=== PATIENT | female | born 1940 | race Caucasian/White ===

== ENCOUNTER 2021-07-22 12:27 | Emergency (ER) | payer MEDICARE, MEDICAID, SELFPAY ==
[2021-07-22 12:30] VITALS: BP 125/61; PULSE 76; RESP 14; O2SAT 94
--- NOTE | 2021-07-22 12:38 | USCV_ITS ---
MelisaMami herrmann Age: 81 Gender: F : 1940 Exam Date: 07/22/2021 13:06 Ordering Phys: Faustina Can MD Technologist: Exam Location: [facility] [place] Indication: BILAT ULCERS RIGHT LEFT Brachial 135.00 mmHg Brachial 135.00 mmHg Pressure (mmHg) Waveform Pressure (mmHg) Waveform 100.00 DEBT MANAGEMENT COUNSELOR 80.00 100.00 DPA 80.00 0.74 Ankle/Brachial Index 0.59 FINDINGS Diminished resting ARELI of 0.74 on the right side and 0.59 on the left side CONCLUSIONS Abnormal resting ARELI suggesting mild peripheral arterial disease on the right side and moderate peripheral arterial disease in the left side Dr Abisai Cee MD [facility] (Electronically Signed) Final Date: 22 July 2021 18:13 S
--- NOTE | 2021-07-22 12:38 | XRR_ITS ---
PROCEDURE INFORMATION: Exam: XR Right Tibia and Fibula Exam date and time: 07/22/2021 12:38 PM Age: 81 years old Clinical indication: Pain; Lower leg; Right; Additional info: Eval for infection TECHNIQUE: Imaging protocol: XR Right tibia and fibula. Views: 2 views. COMPARISON: No relevant prior studies available. FINDINGS: Bones/joints: Normal. Soft tissues: Normal. XR/XR tibia fibula RT 2V [id number] IMPRESSION: No acute findings.
--- NOTE | 2021-07-22 12:38 | XRR_ITS ---
PROCEDURE INFORMATION: Exam: XR Left Tibia and Fibula Exam date and time: 07/22/2021 12:38 PM Age: 81 years old Clinical indication: Pain; Lower leg; Left; Additional info: Eval infection TECHNIQUE: Imaging protocol: XR Left tibia and fibula. Views: 2 views. COMPARISON: No relevant prior studies available. FINDINGS: Bones/joints: Normal. Soft tissues: Normal. XR/XR tibia fibula LT 2V [id number] IMPRESSION: No acute findings.
--- NOTE | 2021-07-22 13:16 | W.ED.EXTPRO ---
HPI - Extremity Problem General: Chief complaint: Extremity Problem,Nontraumatic Stated complaint: BILATERAL LOWER EXT PAIN Time Seen by Provider: 07/22/21 12:31 Course Vital Signs: Vital signs: Vital Signs Pulse Rate 76 07/22/21 12:30 Respiratory Rate 14 07/22/21 12:30 Blood Pressure 125/61 07/22/21 12:30 Pulse Oximetry 94 07/22/21 12:30 Discharge Plan Discharge Patient Disposition: Home Clinical Impression: Acute leg pain, Leg swelling, Chronic wound of extremity Condition: Stable Prescriptions: New cephalexin 500 mg capsule 500 mg PO BID 10 Days Qty: 20 0RF Referrals: [facility] [Other] Discharge Diet: Advance as tolerated Discharge Activity: Increase activity as tolerated Patient Instructions: Chronic Wounds (ED) Activity Restrictions/Additional Instructions: Our dependency case manager will have you follow-up with the wound care and a primary care provider in the next few days. You would be expected to have a phone call with our dependency case manager who will put you on the schedule. You can expect a call from us in the next 2-3 days. Please take your antibiotics as instructed. Watch out for signs of skin changes/redness, mouth redeness or swelling, nausea/vomiting, diarrhea, blood in the urine or any new or concering complaints. Coding Level of Care Code ED Applied Statistician for Martinez Tovar
--- NOTE | 2021-07-22 13:21 | ED_ITS ---
HPI - General Adult General: Chief complaint: Extremity Problem,Nontraumatic Stated complaint: BILATERAL LOWER EXT PAIN Time Seen by Provider: 07/22/21 12:31 History of Present Illness: Onset:[] Duration:[] Location:[] Severity:[] Associated symptoms: Deny chest pain, dyspnea, nausea, rash, palpitations or vomiting Review of Systems Const: Denies: fever(s) or chills Eyes: Denies: change in vision ENMT: Denies: mouth pain Card: Denies: chest pain or palpitations Resp: Denies: dyspnea or non-productive cough GI: Denies: abdominal pain, nausea, vomiting or diarrhea : Denies: dysuria Musc: Denies: extremity pain Skin/Breast: Denies: rash or new lesions Neuro: Denies: weakness in extremities Psych: Reports: other (Normal mood) Randal/Lymph: Denies: easy bruising Physical Exam Const: COMMON NORMALS: alert HENMT: COMMON NORMALS: atraumatic HEAD & SCALP: atraumatic MOUTH: moist mucous membranes not abnormal Eye: COMMON NORMALS: EOMs intact bilaterally and conjunctivae normal CONJUNCTIVA: Yes conjunctivae normal Neck/C-Spine: COMMON NORMALS: full ROM and supple Resp: COMMON NORMALS: normal respiratory effort and clear to auscultation bilaterally AUSCULTATION: clear to auscultation bilaterally Cardio: COMMON NORMALS: regular rate RATE: regular rate GI: COMMON NORMALS: Soft to palpation and non-tender PALPATION: Yes Soft to palpation Extremity: COMMON NORMALS: full ROM Neuro: SENSORIUM/ORIENTATION: Yes alert MOTOR EXAM: No Abnormal motor strength present and Other motor observations present (no focal motor deficits) Psych: COMMON NORMALS: speech normal SPEECH: Yes normal speech MOOD & AFFECT: Yes euthymic mood Course Vital Signs: Vital signs: Vital Signs Pulse Rate 76 07/22/21 12:30 Respiratory Rate 14 07/22/21 12:30 Blood Pressure 125/61 07/22/21 12:30 Pulse Oximetry 94 07/22/21 12:30 [facility] - General Adult Medical Decision Making I have given patient follow up with our counseling case manager to be seen by our outpatient PCP for peripheral vascular disease. Patient aware of a call from our counseling case manager to schedule for appointment(s) and verbalizes understanding of the importance of following up. Rx ASA 325mg for PAD, Discharge Plan Discharge Patient Disposition: Home Clinical Impression: Acute leg pain, Leg swelling, Chronic wound of extremity Condition: Stable Prescriptions: New cephalexin 500 mg capsule 500 mg PO BID 10 Days Qty: 20 0RF Referrals: [facility] [Other] Discharge Diet: Advance as tolerated Discharge Activity: Increase activity as tolerated Patient Instructions: Chronic Wounds (ED) Activity Restrictions/Additional Instructions: Our counseling case manager will have you follow-up with the wound care and a primary care provider in the next few days. You would be expected to have a phone call with our counseling case manager who will put you on the schedule. You can expect a call from us in the next 2-3 days. Please take your antibiotics as instructed. Watch out for signs of skin changes/redness, mouth redeness or swelling, nausea/vomiting, diarrhea, blood in the urine or any new or concering complaints. Coding Level of Care Code ED Electronics Commodity Manager for Martinez Tovar
--- NOTE | 2021-07-22 13:23 | W.ED.GENADLT ---
HPI - General Adult General: Chief complaint: Extremity Problem,Nontraumatic Stated complaint: BILATERAL LOWER EXT PAIN Time Seen by Provider: 07/22/21 12:31 History of Present Illness: Patient is an 81-year-old female presenting from [facility] with concerns of bilateral lower extremity swelling and pain. Patient states that she had had this problem for about 3 weeks and is currently gets wound care at the [facility]. Earlier today, [facility] staff noticed that the legs are weeping more patient was complaining of pain and swelling. EMS were alerted and patient was brought to the emergency room. On arrival, patient is AAO x3 fully conversant. Patient denies any fever/chills, excessive pain in the legs. Patient is currently not on any antibiotics. Patient has not been followed by the wound care clinic. Onset: chronic Duration:ongoing Location:[facility] Severity:moderate Associated symptoms: Reports rash (+bilateral lower extremity erythema and weeping); Deny chest pain, dyspnea, nausea, palpitations or vomiting Review of Systems Const: Denies: fever(s) or chills Eyes: Denies: change in vision ENMT: Denies: mouth pain Card: Denies: chest pain or palpitations Resp: Denies: dyspnea or non-productive cough GI: Denies: abdominal pain, nausea, vomiting or diarrhea : Denies: dysuria Musc: Denies: extremity pain Skin/Breast: Reports: rash (+bilateral lower extremity erythema and weeping) Neuro: Denies: weakness in extremities Psych: Reports: other (Normal mood) Randal/Lymph: Denies: easy bruising [facility] ED PFSH: Medical History (Updated 07/22/21 @ 13:33 by Faustina Can MD) Leg wound, left Leg wound, right Social History (Updated 07/22/21 @ 13:26 by Faustina Can MD) Smoking and tobacco status: never smoked Alcohol intake: never Substance/Drug Use: never Physical Exam Const: COMMON NORMALS: alert HENMT: COMMON NORMALS: atraumatic HEAD & SCALP: atraumatic MOUTH: moist mucous membranes not abnormal Eye: COMMON NORMALS: EOMs intact bilaterally and conjunctivae normal CONJUNCTIVA: Yes conjunctivae normal Neck/C-Spine: COMMON NORMALS: full ROM and supple Resp: COMMON NORMALS: normal respiratory effort and clear to auscultation bilaterally AUSCULTATION: clear to auscultation bilaterally Cardio: COMMON NORMALS: regular rate RATE: regular rate GI: COMMON NORMALS: Soft to palpation and non-tender PALPATION: Yes Soft to palpation Extremity: COMMON NORMALS: full ROM NARRATIVE EXTREMITY EXAM: +Cap refill 4 seconds in the lower extremities DP/PT b/l, sensation intact in the lower extremities, strength intact in lower extremities, skin erythema with weeping wounds in the lower extremities b/l, decubitus ulcers noted in both lower extremities +eschar noted on the posterior aspect of the l leg Neuro: SENSORIUM/ORIENTATION: Yes alert MOTOR EXAM: No Abnormal motor strength present and Other motor observations present (no focal motor deficits) Psych: COMMON NORMALS: speech normal SPEECH: Yes normal speech MOOD & AFFECT: Yes euthymic mood Course Vital Signs: Vital signs: Vital Signs Temperature 98.6 F 07/22/21 13:50 Pulse Rate 72 07/22/21 13:50 Respiratory Rate 15 07/22/21 13:50 Blood Pressure 129/60 07/22/21 13:50 Pulse Oximetry 94 07/22/21 13:50 MDM - General Adult Medical Decision Making 81-year-old female with a history of chronic leg swelling and wound presenting to the emergency room with worsening pain x1 day. On exam, patient has nontense compartments in the lower legs bilaterally, cap refill of 4s DP/PT. Sensation and strength intact in the legs bilaterally. XR not show any signs of osteomyelitis in the lower extremities US showed monophasic DP/PT pulses on US. I discussed this finding with patient instructed patient that she will need to be started on aspirin 325 mg daily. Patient is agreeable to follow up with our wound care clinic and see a primary care provider. I have given patient follow up with our protective services case worker to be seen by our outpatient wound care followup. Patient aware of a call from our protective services case worker to schedule for appointment(s) and verbalizes understanding of the importance of following up. I have given patient follow up with our protective services case worker to be seen by primary care provider for periphreal artery disease and wound followup. Patient aware of a call from our protective services case worker to schedule for appointment(s) and verbalizes understanding of the importance of following up. I have given patient follow up with our protective services case worker to be seen by Dr. Gonsalves for eschar L leg. Patient aware of a call from our protective services case worker to schedule for appointment(s) and verbalizes understanding of the importance of following up. Rx ASA 325mg for PAD, cephalexin 500mg BID for chronic wounds Disposition: Discharge. Patient counseled regarding diagnostic impression, treatment plan. Patient given ED strict return precautions to return for continuation, worsening, or development of new symptoms. Instructed to f/u w/ PCP and our wound care regarding symptoms today. Patient verbalized understanding. Lab Data Radiology Impressions Tibia/Fibula X-Ray 07/22/21 12:38 IMPRESSION: No acute findings. Imaging Data Other Imaging: Radiologist's impression: [address] [address] XRay Report Signed Patient: Mami Vincent Unit #: [id number] : 1940 Age/Sex: 81 / F ADM Date: 07/22/21 Loc: ER Room/Bed: Attending Dr: Ordering Provider/Ordering MD: Faustina Can MD Date of Service: 07/22/21 Procedure(s): XR tibia fibula RT 2V 44744 Accession Number(s): [id number] Report Number: [id number] PROCEDURE INFORMATION: Exam: XR Right Tibia and Fibula Exam date and time: 07/22/2021 12:38 PM Age: 81 years old Clinical indication: Pain; Lower leg; Right; Additional info: Eval for infection TECHNIQUE: Imaging protocol: XR Right tibia and fibula. Views: 2 views. COMPARISON: No relevant prior studies available. FINDINGS: Bones/joints: Normal. Soft tissues: Normal. XR/XR tibia fibula RT 2V 33161 IMPRESSION: No acute findings. ? Dictated By: Christopher Medina Signed By: Christopher Medina Signed Date/Time: 07/22/21 1356 DD/ [address] [address] XRay Report Signed Patient: Mami Vincent Unit #: [id number] : 1940 Age/Sex: 81 / F ADM Date: 07/22/21 Loc: ER Room/Bed: Attending Dr: Ordering Provider/Ordering MD: Faustina Can MD Date of Service: 07/22/21 Procedure(s): XR tibia fibula LT 2V 79440 Accession Number(s): [id number] Report Number: [id number] PROCEDURE INFORMATION: Exam: XR Left Tibia and Fibula Exam date and time: 07/22/2021 12:38 PM Age: 81 years old Clinical indication: Pain; Lower leg; Left; Additional info: Eval infection TECHNIQUE: Imaging protocol: XR Left tibia and fibula. Views: 2 views. COMPARISON: No relevant prior studies available. FINDINGS: Bones/joints: Normal. Soft tissues: Normal. XR/XR tibia fibula LT 2V 67140 IMPRESSION: No acute findings. ? Dictated By: Christopher Medina Signed By: Christopher Medina Signed Date/Time: 07/22/21 1358 DD/ 1238 Discharge Plan Discharge Patient Disposition: Home Clinical Impression: Acute leg pain, Leg swelling, Chronic wound of extremity, Cellulitis, Peripheral arterial disease Condition: Stable Prescriptions: New cephalexin 500 mg capsule 500 mg PO BID 10 Days Qty: 20 0RF aspirin 325 mg tablet 325 mg PO DAILY 14 Days Qty: 14 0RF Discharge Orders: Discharge ED (Routine); Ordered 07/22/21 Ordered By: Faustina Can Referrals: [facility] [Other] Discharge Diet: Advance as tolerated Discharge Activity: Increase activity as tolerated Activity Restrictions/Additional Instructions: Our protective services case worker will have you follow-up with the wound care and a primary care provider in the next few days. You would be expected to have a phone call with our protective services case worker who will put you on the schedule. You can expect a call from us in the next 2-3 days. Please take your antibiotics as instructed. Watch out for signs of skin changes/redness, mouth redeness or swelling, nausea/vomiting, diarrhea, blood in the urine or any new or concerning complaints. Coding Level of Care Code ED Dining Server for Chg Fwd Exam Comprehensive
[2021-07-22 13:50] VITALS: BP 129/60; PULSE 72; RESP 15; TEMP 37; O2SAT 94
--- NOTE | 2021-07-24 11:13 | DCPLANNER ---
Addendum entered by Taylor Almanza 08/16/21 13:58: Patient had a follow up appointment scheduled with Wound Care - patient did attend appointment. Addendum entered by Taylor Almanza 07/26/21 13:57: risk control manager had message to speak with patient about getting a follow up appointment for patient with primary care. risk control manager unable to speak with patient at this time. Addendum entered by Taylor Almanza 07/26/21 11:15: risk control manager had message to schedule a follow up appointment for patient with ortho. risk control manager made the referral but was told that patient would need to followup with Wound Care before being seen at ortho. Addendum entered by Taylor Almanza 07/24/21 11:20: risk control manager was able to speak with daughter in law and give her the appointment information. Original Note: risk control manager had message to schedule a follow up appointment for patient with wound care. risk control manager called the Wound Care clinic, spoke with Marti, gave clinic patients information. A follow up appointment was scheduled for patient for July at 1:[address] Mar. risk control manager called phone number [phone], this was disconnected, called phone number [phone], no answer, called [phone] spoke with patient, she asked pillowcase cutter to call daughter in law - [phone], a voicemail was left for her to call pillowcase cutter back for appointment information.
== END 2021-07-22 15:55 | disposition home or self-care (01) ==
PROVIDERS: Emergency Provider Emergency Medicine
DX: L03.116 Cellulitis of left lower limb (principal); L03.115 Cellulitis of right lower limb; L89.899 Pressure ulcer of other site, unspecified stage; I73.9 Peripheral vascular disease, unspecified
CPT/HCPCS: 73590; 93922; 99283

== ENCOUNTER 2021-08-01 16:32 | Inpatient (IN) | payer MEDICARE, MEDICAID, SELFPAY ==
[2021-08-01 16:39] VITALS: BP 156/69; PULSE 73; RESP 19; TEMP 37.4; O2SAT 91; BMI 20.3
--- NOTE | 2021-08-01 16:58 | USCV_ITS ---
Mami Vincent Age: 81 Gender: F : 1940 Exam Date: 08/01/2021 17:14 Ordering Phys: Eris Thompson DO Technologist: Laurel Hickman [place] [facility] [place]: ULCERS ON LT LOWER LEG Risk Factors: UNKNOWN Previous Vascular Surgery: UNKNOWN RIGHT LEFT BP: 138.0 / 64.00 BP: 153.0/ 88.00 0 0 Waveform Velocity (cm/s) Velocity (cm/s) Waveform Iliac Prox 149.1 Monophasic Iliac Mid 97.6 Monophasic Iliac Distal 82.5 Monophasic MEDICAL RECORD ASSISTANT 19.9 Monophasic SFA Dist 98.8 Monophasic POP 147.4 Biphasic FINDINGS NO FLOW IN LT BSW OR DPA.. NO ARELI POSSIBLE. Sluggish flow in the common femoral artery on the left side. No flow was detected in the proximal and mid superficial femoral artery. Monophasic and continuous Doppler waveforms in the distal superficial femoral and popliteal artery. No Doppler flow signals in the posterior tibial and dorsalis pedis arteries. CONCLUSIONS 1. 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 2. No flow was detected in the posterior tibial and dorsalis pedis artery on the left side Dr. Martinez was informed about this finding Dr Abisai Cee MD [facility] (Electronically Signed) Final Date: 03 August 2021 16:51 S
--- NOTE | 2021-08-01 16:58 | ECG_ITS ---
[facility] Test Date: 2021-08-01 Pat Name: Mami Vincent Department: Room: Gender: Female Hog Ribber: : 1940 Requested By: Eris Goldman Order Number: [id number] Marlo MD: Charanjit Carcamo M.D. Measurements Intervals [place] Rate: 68 P: -41 WV: 130 QRS: -8 QRSD: 85 T: -13 QT: 411 QTc: 438 Interpretive Statements SINUS RHYTHM SEPTAL MYOCARDIAL INFARCTION , OF INDETERMINATE AGE [40+ ms Q WAVE IN V1/V2] No previous ECG available for comparison Electronically Signed On 08-01-2021 20:21:53 TRAFFIC COUNTER by Charanjit Carcamo M.D. [email or web address]
[2021-08-01 17:13] LABS: Basophils % 0.2 %; Eosinophils # 0.1 10^3/uL (0.0-0.8); Eosinophils % 0.3 %; Hematocrit 39.7 % (37.0-47.0); Hemoglobin 12.7 g/dL (11.5-15.3); Lymphocytes # 1.3 10^3/uL (0.8-4.8); Lymphocytes % 8.1 %; Mean Corpuscular Hemoglobin 30.3 pg (28.0-34.0); Mean Corpuscular Volume 94.7 fl (81-99); Mean Platelet Volume 10.5 fL (7.4-10.4); Monocytes % 6.1 %; Neutrophils # 13.82 10^3/uL (1.8-7.7); Neutrophils % 84.7 %; Nucleated Red Blood Cells % 0 %; Platelet Count 347 10^3/cmm (130-400); Red Blood Count 4.19 10^6/uL (4.1-5.3); Red Cell Distribution Width 12.1 % (12.1-15.1); White Blood Count 16.3 10^3/uL (4.0-10.0)
--- NOTE | 2021-08-01 17:35 | W.ED.EXTPRO ---
HPI - Extremity Problem General: Chief complaint: Extremity Problem,Nontraumatic Stated complaint: FOOT PAIN Time Seen by Provider: 08/01/21 16:34 Source: patient Mode of arrival: EMS Limitations: altered mental status History of Present Illness: 81-year-old female presents emergency room with complaints of poor blood flow to her left leg. She has chronic ulcers that they have been draining through the wound clinic she has discoloration of the toes and foul-smelling ulcer along the back of the calf on the left leg. She has a low-grade fever on arrival here. She is in the dementia unit at the skilled nursing per EMS staff. MD Complaint: other (Discoloration left toes and ulcers left leg) Onset (ago): month(s) Location: left, right and lower extremity Relieving factors: nothing Associated symptoms: Reports fever(s); Deny arthralgias, chest pain, myalgias, rash or short of breath Review of Systems General: Reports: Other (Difficult to obtain with patient's dementia) Const: Reports: fever(s) ENMT: Denies: throat pain, nasal discharge or nasal congestion Card: Denies: chest pain Resp: Denies: dyspnea GI: Denies: abdominal pain, nausea, vomiting or diarrhea : Denies: flank pain, dysuria, urinary frequency or urinary urgency Skin/Breast: Denies: rash PFSH ED PFSH: Medical History CKD (chronic kidney disease) stage 3, GFR 30-59 ml/min Dementia DNR (do not resuscitate) HTN (hypertension) Leg wound, left Leg wound, right Peripheral vascular disease Social History Smoking and tobacco status: never smoked Alcohol intake: never Household members: other Housing: Correction Marital status: / Physical Exam Const: COMMON NORMALS: no acute distress GENERAL APPEARANCE: cooperative and comfortable HENMT: COMMON NORMALS: normocephalic and atraumatic HEAD & SCALP: normocephalic and atraumatic Neck/C-Spine: COMMON NORMALS: no JVD Resp: COMMON NORMALS: normal respiratory effort, No retractions, No use of accessory muscles and clear to auscultation bilaterally AUSCULTATION: clear to auscultation bilaterally Cardio: COMMON NORMALS: no JVD, regular rate, regular rhythm and No murmurs present (Cardio) RATE: regular rate RHYTHM: regular rhythm GI: COMMON NORMALS: Soft to palpation and No hepatosplenomegaly present AUSCULTATION: Yes normoactive bowel sounds PALPATION: Yes Soft to palpation, No Tenderness to palpation present (GI), No Guarding due to palpation present (GI) and Yes No hepatosplenomegaly present Extremity: OTHER: Cyanosis second third and fourth toes on the left foot. Extensive foul-smelling ulcers across the back of the left calf. Appears to be full-thickness to the skin there is an overlying dry eschar. Ulcers on the right heel as well are far less involved. No palpable pulses lower extremities. Course Vital Signs: Vital signs: Vital Signs Temperature 97.7 F 08/02/21 04:00 Pulse Rate 62 08/02/21 04:00 Respiratory Rate 16 08/02/21 04:00 Blood Pressure 132/50 08/02/21 04:00 Pulse Oximetry 90 08/02/21 04:00 MDM - Extremity (Nontraumatic) Medical Decision Making ARELI done 1 week ago showed moderate decrease in flow arterial duplex done today of the left lower extremity shows significant decrease COVID flow. We will start her on heparin for now blood cultures have been obtained and will initiate antibiotics. Discussed with Dr. Sawant from vascular surgery and Dr. Carcamo for consults per Dr. Powell's request. Initially she will require medical management. Given her overall condition the poor blood flow she has she may require some intervention moving her leg Dr. Sawant and Carlos Alberto will see according to Dr. Powell. When I was seeing patient there is no family available at the bedside to discuss Dr. Powell is attempting to contact them patient is listed according to the skilled nursing notes as a Do Not Recussitate. Medical Records I reviewed the patient's medical records. Lab Data I reviewed the patient's lab results. : 08/02/21 01:00 08/02/21 01:00 Radiology Impressions Chest X-Ray 08/01/21 17:40 IMPRESSION: 1. Left base atelectasis with possible small pleural effusion. Venous Duplex 08/01/21 18:42 IMPRESSION: 1. Suspect probable occluding thrombus in the left posterior tibial vein, see above discussion. 2. Possible chronic thrombus in the mid right superficial femoral vein, details above. 3. No other evidence for the deep venous thrombosis in either lower extremity at this time. 4. Limitations as discussed above. Laboratory Results WBC 16.3 10^3/uL (4.0-10.0) H 08/01/21 17:00 RBC 4.19 10^6/uL (4.1-5.3) 08/01/21 17:00 Hgb 12.7 g/dL (11.5-15.3) 08/01/21 17:00 Hct 39.7 % (37.0-47.0) 08/01/21 17:00 MCV 94.7 fl (81-99) 08/01/21 17:00 MCH 30.3 pg (28.0-34.0) 08/01/21 17:00 MCHC 32.0 g/dL (30.0-36.0) 08/01/21 17:00 RDW 12.1 % (12.1-15.1) 08/01/21 17:00 Plt Count 347 10^3/cmm (130-400) 08/01/21 17:00 MPV 10.5 fL (7.4-10.4) H 08/01/21 17:00 Neut % (Auto) 84.7 % 08/01/21 17:00 Lymph % (Auto) 8.1 % 08/01/21 17:00 [place] % (Auto) 6.1 % 08/01/21 17:00 Eos % (Auto) 0.3 % 08/01/21 17:00 Baso % (Auto) 0.2 % 08/01/21 17:00 Neut # (Auto) 13.82 10^3/uL (1.8-7.7) H 08/01/21 17:00 Lymph # (Auto) 1.3 10^3/uL (0.8-4.8) 08/01/21 17:00 [place] # (Auto) 1.0 10^3/uL (0.2-0.9) H 08/01/21 17:00 Eos # (Auto) 0.1 10^3/uL (0.0-0.8) 08/01/21 17:00 Baso # (Auto) 0.0 10^3/uL (0.0-0.1) 08/01/21 17:00 Nucleated RBC % (auto) 0 % 08/01/21 17:00 Nucleated RBCs # 0.0 /100WBC 08/01/21 17:00 PT 14.20 SECONDS (12.1-14.9) 08/01/21 17:00 INR 1.07 (0.8-1.2) 08/01/21 17:00 APTT 32.2 SECONDS (23.9-36.7) 08/01/21 17:00 Sodium 141 mmol/L (136-145) 08/01/21 17:00 Potassium 4.3 mmol/L (3.5-5.1) 08/01/21 17:00 Chloride 100 mmol/L (98-107) 08/01/21 17:00 Carbon Dioxide 27 mmol/L (22-29) 08/01/21 17:00 Anion Gap 18.3 (5-19) 08/01/21 17:00 BUN 46 mg/dL (8-23) H 08/01/21 17:00 Creatinine 1.6 mg/dL (0.5-0.9) H 08/01/21 17:00 GFR Calculation Not Reportable 08/01/21 17:00 Glucose 92 mg/dL (65-115) 08/01/21 17:00 Calculated Osmolality 304 mOsm/kg (285-295) H 08/01/21 17:00 Calcium 9.1 mg/dL (8.5-10.5) 08/01/21 17:00 Iron 25 ug/dL (37-145) L 08/01/21 17:00 TIBC 177 mcg/dl 08/01/21 17:00 % Saturation 14.1 % (20-50) L 08/01/21 17:00 Unsat Iron Binding 152 ug/dL (112-347) 08/01/21 17:00 Total Bilirubin 0.4 mg/dL (0.15-1.2) 08/01/21 17:00 AST 112 U/L (0-32) H 08/01/21 17:00 ALT 118 U/L (0-33) H 08/01/21 17:00 Alkaline Phosphatase 135 IU/L (35-105) H 08/01/21 17:00 C-Reactive Protein 128.1 mg/L (0.0-4.9) H 08/01/21 17:00 Total Protein 7.0 g/dL (6.6-8.7) 08/01/21 17:00 Albumin 2.9 g/dL (3.5-5.2) L 08/01/21 17:00 Globulin 4.1 g/dL (1.3-4.6) 08/01/21 17:00 Procalcitonin 0.35 ng/mL (0-0.5) 08/01/21 17:00 TSH 4.79 uIU/mL (0.27-4.20) H 08/01/21 17:00 Discharge Plan Discharge Patient Disposition: Admitted As Inpatient Admit Provider: Arnold Powell Clinical Impression: Limb ischemia, Arterial insufficiency with ischemic ulcer, Dementia, Peripheral vascular disease, LEON (acute kidney injury), CKD (chronic kidney disease) stage 3, GFR 30-59 ml/min, HTN (hypertension), DNR (do not resuscitate) Condition: Stable Coding Level of Care Code ED Shirt Sorter for [facility] T[facility]
--- NOTE | 2021-08-01 17:40 | XRR_ITS ---
PROCEDURE INFORMATION: Exam: XR Chest Exam date and time: 08/01/2021 5:40 PM Age: 81 years old Clinical indication: Cough and shortness of breath; Additional info: Dyspnea/cough TECHNIQUE: Imaging protocol: XR of the chest. Views: 1 view. COMPARISON: No relevant prior studies available. FINDINGS: Lungs: Mild atelectasis in the left lung base with a calcified granuloma. The right lung is clear. Pleural spaces: Blunting of the left costophrenic angle could represent a small pleural effusion or pleural scarring. No pneumothorax. Heart/Mediastinum: Unremarkable. No cardiomegaly. Diaphragm: Mild elevation of the left diaphragm. Bones/joints: Unremarkable. XR/XR chest 1V portable [id number] IMPRESSION: 1. Left base atelectasis with possible small pleural effusion.
[2021-08-01] MEDS: vancomycin 1,000 MG in sodium chloride 0.9% 250 ML 250 MG IV (17:48)
[2021-08-01 17:55] LABS: Alanine Aminotransferase 118 U/L (0-33); Albumin Level 2.9 g/dL (3.5-5.2); Alkaline Phosphatase 135 IU/L (35-105); Anion Gap 18.3 (5-19); Aspartate Amino Transferase 112 U/L (0-32); Blood Urea Nitrogen 46 mg/dL (8-23); Calcium 9.1 mg/dL (8.5-10.5); Carbon Dioxide 27 mmol/L (22-29); Chloride 100 mmol/L (98-107); Globulin 4.1 g/dL (1.3-4.6); Glucose 92 mg/dL (65-115); Osmolality Calculated 304 mOsm/kg (285-295); Potassium 4.3 mmol/L (3.5-5.1); Sodium 141 mmol/L (136-145); Total Bilirubin 0.4 mg/dL (0.15-1.2)
[2021-08-01 17:58] LABS: Creatinine Clr Calc Pharmacy 25.9111
--- NOTE | 2021-08-01 18:42 | USR_ITS ---
PROCEDURE INFORMATION: Exam: US Duplex Lower Extremity Veins, Bilateral Exam date and time: 08/01/2021 6:42 PM Age: 81 years old Clinical indication: Bilateral; Patient HX: Patient admitted with complaints of foot pain. Both legs show significant ulceration and lt toes have turned black. ; Additional info: R/O dvt TECHNIQUE: Imaging protocol: Real-time Duplex ultrasound of the bilateral extremities with 2-D arceo scale, color Doppler flow and spectral waveform analysis with image documentation. Complete exam focused on the bilateral lower extremity veins. COMPARISON: No relevant prior studies available. FINDINGS: Evaluated veins include bilateral common femoral, proximal profunda femoral, proximal/mid/distal superficial femoral, popliteal, posterior tibial, peroneal, and proximal greater saphenous veins. Technologist notes a technically difficult/limited study due to patient's inability to cooperate at this time. Right leg: The midportion of the right superficial femoral vein is relatively small in size, and it may not be completely compressible. Blood flow is still demonstrated through this region. I suspect there may be eccentrically located non occluding thrombus present, difficult to be certain. The appearance may be more compatible with chronic than acute thrombus, although the appearance is not specific and clinical correlation is still recommended. No visible clot in the other included veins. The other included veins appear normally compressible. Duplex Doppler evaluation demonstrates flow in the other evaluated veins. Left leg: Suspect probable occluding thrombus in the left posterior tibial vein. No definite/significant blood flow can be detected in the posterior tibial vein, and the vein is probably not completely compressible. Difficult to determine if this is acute or chronic thrombus, please correlate clinically. No visible clot in the other included veins. The other included veins appear normally compressible. Duplex Doppler evaluation demonstrates flow in the other evaluated veins. US/[place] [id number] IMPRESSION: 1. Suspect probable occluding thrombus in the left posterior tibial vein, see above discussion. 2. Possible chronic thrombus in the mid right superficial femoral vein, details above. 3. No other evidence for the deep venous thrombosis in either lower extremity at this time. 4. Limitations as discussed above.
--- NOTE | 2021-08-01 18:42 | USCV_ITS ---
Mami Vincent Age: 81 Gender: F : 1940 Exam Date: 08/02/2021 00:15 Ordering Phys: Arnold Powell MD Technologist: Gavin Brown Exam Location: [facility] [place] Indication: PVD/EF Assessment BP: / HR: 73 Rhythm: Sinus Technical Quality: Adequate MEASUREMENTS (Male / Female) Normal Values 2D ECHO LV Diastolic Diameter PLAX 2.7 cm 4.2 - 5.9 / 3.9 - 5.3 cm LV Systolic Diameter PLAX 0.3 cm IVS Diastolic Thickness 1.1 cm 0.6 - 1.0 / 0.6 - 0.9 cm IVS Systolic Thickness 1.4 cm LVPW Diastolic Thickness 1.4 cm 0.6 - 1.0 / 0.6 - 0.9 cm LVPW Systolic Thickness 2.0 cm LVOT Diameter 1.3 cm LV Ejection Fraction 2D Teich 99.6 % LV Ejection Fraction MOD 2C 83.1 % LV Ejection Fraction 2C AL 83.0 % LA Diameter 2.8 cm LA Width 4.4 cm LA Height 4.5 cm RA Width 3.7 cm RA Height 4.0 cm Aorta at Sinotubular Diameter 1.6 cm M-MODE Aortic Annulus Diameter 3.6 cm LA Ao Ratio MM 1.0 MV E Point Septal Separation 1.8 cm DOPPLER AV Peak Velocity 177.8 cm/s LVOT Peak Velocity 124.0 cm/s AV Area Cont Eq vti 0.9 cm squared AV Area Cont Eq pk 1.0 cm squared MV Peak Velocity 109.0 cm/s MV Area PHT 2.9 cm squared Mitral E to A Ratio 0.8 MV E' Velocity 48.5 cm/s Mitral E to MV E' Ratio 8.6 Mitral E to LV E' Lateral Ratio 8.9 Mitral E to LV E' Septal Ratio 8.3 TR Peak Velocity 298.6 cm/s TR Peak Gradient 35.7 mmHg TR Mean Velocity 208.6 cm/s TR Mean Gradient 20.3 mmHg TR Velocity Time Integral 88.6 cm TV Peak E Velocity 69.0 cm/s Right Atrial Pressure 3.0 mmHg Pulmonary Artery Systolic Pressu 38.7 mmHg PV Peak Velocity 130.3 cm/s RV Acceleration Time 0.1 s RV Ejection Time 0.3 s RV AcT/ET 0.3 FINDINGS Left Ventricle Normal left ventricular size and systolic function, EF 83 %. Mild left ventricular hypertrophy. Grade I/IV diastolic dysfunction (abnormal relaxation filling pattern), normal to mildly elevated filling pressures. Right Ventricle The right ventricle is normal in size and function. Right Atrium The right atrium is normal in size. Left Atrium Mildly increased left atrial size. Mitral Valve No gross abnormalities noted Aortic Valve Trace aortic valve regurgitation. Tricuspid Valve Trace to mild tricuspid valve regurgitation. Pulmonic Valve Pulmonic valve not well visualized. Pericardium Normal pericardium without effusion. Aorta Normal ascending aorta dimension. CONCLUSIONS Normal left ventricular size and systolic function, EF 83 %. Mild left ventricular hypertrophy. Grade I/IV diastolic dysfunction (abnormal relaxation filling pattern), normal to mildly elevated filling pressures. Mildly increased left atrial size. Trace aortic valve regurgitation. Trace to mild tricuspid valve regurgitation. Estimated pulmonary artery peak systolic pressure of 39 mmHg There is no pericardial effusion. There are no intracardiac masses. No previous study is available for comparison. Dr Abisai Cee MD FACC (Electronically Signed) Final Date: 02 August 2021 07:46 S
[2021-08-01 18:47] LABS: INR 1.07 (0.8-1.2)
[2021-08-01 18:48] LABS: Partial Thromboplastin Time 32.2 SECONDS (23.9-36.7)
--- NOTE | 2021-08-01 18:50 | PM.HP ---
Providers/Chief Complaint Chief Complaint: FOOT PAIN History of Present Illness Most of the history taken through chart review and conversation with ERP. Mami Vincent is a 81 year old female who is a intermediate resident secondary to advanced dementia with past medical history of hypertension, peripheral arterial disease, Alzheimer's who presented to the ER today via EMS from intermediate because of continuous foul-smelling discharge from chronic ulcers in her leg along with discoloration of her toes in the left leg. As per chart review patient was in the ER in last week of June with concerns of bilateral lower extremity swelling and pain as well. At that time patient has been having the complaint for the last 3 weeks. Patient is unable to provide me with any further history other than the above. She denies of having any diarrhea, cough, difficulty in breathing, dizziness, dysuria. Seems forgetful. In the ER patient was found to be mildly febrile with fever up to 99.3 Fahrenheit. Blood work showed a white count of 16.3, hemoglobin of 12.7, sodium of 146, creatinine of 1.6, AST/ALT of 112/118, alkaline phosphatase of 135. Patient underwent arterial duplex which was verbally reported as severe arterial disease(formal report not present in the chart). Patient did have an ankle-brachial index done on 07/22 which showed abnormal ARELI suggesting mild peripheral arterial disease on the right side and moderate peripheral artery disease on the left side. Review of Systems General: Reports: ROS unobtainable due to mental status Const: Denies: fever(s), chills, body aches, change in appetite, change in weight, malaise, night sweats, diaphoresis, change in sleep pattern, daytime sleepiness or snoring Eyes: Denies: change in vision, blurry vision, photophobia, eye discomfort or eye discharge ENMT: Denies: throat pain, enlarged tonsils, hoarseness, mouth pain, oral sores, dry mouth, tinnitus, nasal congestion or post nasal drip Card: Denies: chest pain, palpitations, irregular heart rhythm, edema, swelling of feet/ankles, lightheadedness, syncope, pre-syncope, dyspnea on exertion, orthopnea, leg pain with exertion or acrocyanosis Resp: Denies: dyspnea, productive cough, non-productive cough, wheezing, stridor, pain on inspiration, change in phlegm color, hemoptysis or chest congestion GI: Denies: abdominal pain, nausea, vomiting, hematemesis, coffee ground emesis, dysphagia, heartburn, diarrhea, constipation, bloating, GI cramping, change in bowel habits, pain on defecation, hematochezia or melena : Denies: flank pain, dysuria, urinary frequency, urinary urgency, urinary hesitancy, nocturia or hematuria Musc: Denies: neck pain, back pain, extremity pain, joint pain, joint swelling, joint redness, joint stiffness or limited range of motion Neuro: Denies: headache(s), numbness in extremities, weakness in extremities, sensory changes, lack of coordination, difficulty walking, frequent falls, dizziness, vertigo, confusion, Slurred speech present, difficulty communicating thoughts or seizure-like activity Psych: Denies: anxiety, depression, mood swings, panic attacks, hopelessness or irritability Endo: Denies: polyuria, polydipsia, tired all the time, cold intolerance, excessive sweating, flushing or heat intolerance Randal/Lymph: Denies: easy bruising or easy bleeding All/Imm: Denies: tongue swelling, facial swelling or acute wheezing Medications/Allergies Home Medications Medication Instructions Recorded Confirmed Last Taken Type Saccharomyces boulardii 250 mg 250 mg PO DAILY 08/01/21 08/01/21 Unknown History capsule acetaminophen 325 mg tablet 325 mg PO Q4H PRN 08/01/21 08/01/21 Unknown History (Tylenol) acetaminophen 650 mg rectal 650 mg NE Q6H PRN 08/01/21 08/01/21 Unknown History suppository alprazolam 0.25 mg tablet 0.25 mg PO DAILY 08/01/21 08/01/21 Unknown History amlodipine 5 mg tablet 5 mg PO DAILY 08/01/21 08/01/21 Unknown History aspirin 325 mg tablet 325 mg PO DAILY 08/01/21 08/01/21 Unknown History atorvastatin 10 mg tablet 10 mg PO DAILY 08/01/21 08/01/21 Unknown History cephalexin 500 mg capsule 500 mg PO Q12H 08/01/21 08/01/21 Unknown History diclofenac sodium 1 % topical gel 2 g TOPICAL TID PRN 08/01/21 08/01/21 Unknown History fentanyl 12 mcg/hr transdermal 1 patch TRANSDERMAL Q72H 08/01/21 08/01/21 Unknown History patch furosemide 20 mg tablet (Lasix) 20 mg PO DAILY 08/01/21 08/01/21 Unknown History lanolin alcohols-mineral 1 applic TOPICAL DAILY PRN 08/01/21 08/01/21 Unknown History oil-w.petrolatum-ceresin topical cream (Eucerin) lisinopril 10 mg tablet 10 mg PO DAILY 08/01/21 08/01/21 Unknown History olanzapine 2.5 mg tablet 2.5 mg PO DAILY 08/01/21 08/01/21 Unknown History potassium chloride 20 mEq 20 meq PO DAILY 08/01/21 08/01/21 Unknown History tablet,extended release sertraline 100 mg tablet 100 mg PO DAILY 08/01/21 08/01/21 Unknown History sodium chloride 0.65 % nasal spray 1 spray INTRANASAL Q6H PRN 08/01/21 08/01/21 Unknown History aerosol ([place] Nasal) tramadol 50 mg tablet 50 mg PO Q4H PRN 08/01/21 08/01/21 Unknown History Allergies Allergy/AdvReac Type Severity Reaction Status Date / Time influenza virus vaccine ts Allergy ALGY-Anaphy Verified 08/01/21 16:39 [id number] (36 mos,up) laxis [From Flulaval] PFSH Acute PFSH: Medical History CKD (chronic kidney disease) stage 3, GFR 30-59 ml/min Dementia DNR (do not resuscitate) HTN (hypertension) Leg wound, left Leg wound, right Peripheral vascular disease Social History Smoking and tobacco status: never smoked Alcohol intake: never Household members: other Housing: Correction Marital status: / Vitals/I&O/Wt Last Vital Signs Temp 99.4 F 08/01/21 16:39 Pulse 73 08/01/21 16:39 Resp 19 H 08/01/21 16:39 BP 156/69 08/01/21 16:39 Pulse Ox 91 08/01/21 16:39 Weight last 48 hrs Weight 58.967 kg Physical Exam Narrative: General: No acute distress, AO x 2-3, forgetful, chronically sick appearing, dehydrated, bilateral temporal wasting HEENT: PERRLA, pupils bilaterally equal and reactive Chest: Normal vesicular breath sounds, no added sounds, equal good air entry bilaterally CVS: S1-S2 regular, no murmurs, no tachycardia, no gallops, no rubs Abdomen: Soft, nontender, no organomegaly, bowel sounds present Neuro: No focal deficits, no facial deformity, AO x3, power 5/5 in all limbs Extremity: NARRATIVE EXTREMITY EXAM: Ulcerative changes in the lateral aspect of the left leg and mid leg distally. Wet gangrenous changes present in posterior aspect of the leg with copious purulent discharge. Early dry gangrenous changes present in toes of left foot, cyanotic. Thigh and knee appear normal. Decreased pulses on the right side as well. Data : 08/02/21 01:00 08/02/21 01:00 Micro: Microbiology 08/01/21 16:55 Blood Culture - Preliminary Blood SPECIMEN COLLECTED 08/01/21 17:00 Blood Culture - Preliminary Blood SPECIMEN COLLECTED A&P Assessment and plan (1) Arterial insufficiency with ischemic ulcer: Status: Acute (2) Limb ischemia: Status: Acute (3) Peripheral vascular disease: Status: Acute (4) LEON (acute kidney injury): Status: Acute (5) CKD (chronic kidney disease) stage 3, GFR 30-59 ml/min: Status: Acute (6) Dementia: Status: Acute (7) HTN (hypertension): Status: Acute Plan Ulcer secondary to arterial insufficiency in setting of limb ischemia: Appreciate lower limb arterial duplex. Case discussed with cardiology and cardiothoracic surgery. Continue heparin drip for now. Depending on the goals of care with the DPOA will discuss about possible need of revascularization with peripheral PCI versus possible need of amputation to prevent from sepsis and septic shock will decide about further imaging with CTA with aortic runoff versus peripheral angiogram. For now given patient's age, baseline functional capacity in setting of advanced dementia and age patient is a better candidate for possible amputation to prevent life-threatening infection versus possible kidney failure from contrast-induced nephropathy. Check blood culture, urinalysis, procalcitonin, lactate, MRSA swab. Check ESR, CRP Start patient on vancomycin and Zosyn. Dose as per creatinine clearance. Wound dressing as per recommendation from Dr. Sawant. From now start with Optifoam. Every shift pulse check. Acute kidney injury: Most likely secondary to sepsis along with dehydration. Check urinalysis, urine lites, urine creatinine. Start on normal saline at 50 cc/h. Medical reconciliation done for nephrotoxic drugs. Monitor BMP daily. Hypertension: Goal blood pressure less than 140/90 mmHg. At home patient takes amlodipine 5 mg, lisinopril, Lasix. For now continue with amlodipine. Hold off on Lasix and lisinopril. Check echocardiogram. Continue other chronic home medications. Tramadol p.o. every 4 hourly as needed for pain. Goals of care discussion: Discussed in detail with patient's DPOA, [id number]. She states both herself and patient's son are the DPOA. We discussed that unfortunately patient seems to be having ulcer secondary to decreased blood supply to the toes and leg from failure peripheral arterial disease and limb ischemia. We discussed going forward the options are revascularization procedure including peripheral angiogram and angioplasty versus possible amputation to prevent sepsis, septic shock or even . We discussed that given the age, acute kidney injury with creatinine of 1.6, patient developing ulcer/gangrene she is at high risk of complications from revascularization procedure including acute kidney failure and even requirement of dialysis. We also discussed that for now both cardiology and cardiothoracic surgery have been consulted. Patient's DPOA states she would like to discuss it further with her before making a decision. We did discuss given the acuteness of limb ischemia it is time constraint to come up with a decision because she is at a higher risk of more muscular and tissue injury at the time progresses. DNR/DNI. Heparin drip will suffice for prophylaxis as well. Famotidine for PUD prophylaxis. N.p.o. overnight. Guarded prognosis Attestations Medical Necessity Statement*: Admission for more than 2 midnights for management of ischemic ulceration on the leg secondary to severe peripheral arterial disease and critical limb ischemia, acute kidney injury Time Spent in Patient Care: Greater than 35 minutes Coding Level of Care Code Acute Staple Laster for [facility] Diagnoses Peripheral vascular disease I73.9 ELON (acute kidney injury) N17.9 Limb ischemia I99.8 Arterial insufficiency with ischemic ulcer I77.1; L98.499 CKD (chronic kidney disease) stage 3, GFR 30-59 ml/min N18.30 Dementia F03.90 HTN (hypertension) I10
[2021-08-01 18:55] LABS: C Reactive Protein 128.1 mg/L (0.0-4.9); Thyroid Stimulating Hormone 4.79 uIU/mL (0.27-4.20)
[2021-08-01] MEDS: heparin 5,000 unit/mL INJ 1 mL IV (19:00)
[2021-08-01 19:03] LABS: Iron 25 ug/dL (37-145); Percent Saturation 14.1 % (20-50); Total Iron Binding Capacity 177 mcg/dl; Unsaturated Iron Binding 152 ug/dL (112-347)
[2021-08-01 19:09] LABS: Procalcitonin 0.35 ng/mL (0-0.5)
[2021-08-01] MEDS: heparin drip 25,000 UNIT/500 ML PREMIX 17 UNIT IV (19:11)
[2021-08-01 19:38] VITALS: BP 135/63; PULSE 73; O2SAT 94
--- NOTE | 2021-08-01 20:00 | PC.NURSE ---
Pt. has venous ulcers to bilateral legs on calfs and heels. Worse on left leg with no pulse to left foot with darkened toes. Dr. Larry schafer.
[2021-08-01 20:39] VITALS: BP 143/57; PULSE 66; RESP 16; TEMP 36.9; O2SAT 90
[2021-08-01] MEDS: sodium chloride 0.9% 1,000 ML 50 ML IV (22:12)
[2021-08-01] MEDS: piperacillin-tazobactam 3.375 GM in sodium chloride 0.9% (plus) 50 ML IV (22:13)
[2021-08-01] MEDS: famotidine 20 mg/2 mL INJ IVP (22:13)
[2021-08-01 22:15] LABS: Lactic Sepsis W/Reflex 0.5 mmol/L (0.5-2.2)
[2021-08-01 23:18] VITALS: RESP 20
[2021-08-01] MEDS: morphine 4 mg/mL SDV 1 mL 1 MG IVP (23:18)
[2021-08-02] VITALS (13 sets, daily range): BP systolic 94–160; BP diastolic 50–91; PULSE 57–84; RESP 14–20; TEMP 36.2–36.8; O2SAT 90–98
[2021-08-02 01:13] LABS: Basophils % 0.2 %; Eosinophils # 0.1 10^3/uL (0.0-0.8); Eosinophils % 0.3 %; Hematocrit 33.8 % (37.0-47.0); Hemoglobin 10.7 g/dL (11.5-15.3); Lymphocytes # 1.9 10^3/uL (0.8-4.8); Lymphocytes % 11.9 %; Mean Corpuscular HGB Conc 31.7 g/dL (30.0-36.0); Mean Corpuscular Hemoglobin 30.1 pg (28.0-34.0); Mean Corpuscular Volume 95.2 fl (81-99); Mean Platelet Volume 10.3 fL (7.4-10.4); Monocytes # 0.9 10^3/uL (0.2-0.9); Monocytes % 5.3 %; Neutrophils # 13.15 10^3/uL (1.8-7.7); Neutrophils % 81.7 %; Nucleated Red Blood Cells % 0 %; Platelet Count 329 10^3/cmm (130-400); Red Blood Count 3.55 10^6/uL (4.1-5.3); Red Cell Distribution Width 12.1 % (12.1-15.1); White Blood Count 16.1 10^3/uL (4.0-10.0)
[2021-08-02 01:23] LABS: Estmated Average Glucose 126
[2021-08-02 01:29] LABS: Alanine Aminotransferase 93 U/L (0-33); Albumin Level 2.7 g/dL (3.5-5.2); Alkaline Phosphatase 105 IU/L (35-105); Aspartate Amino Transferase 77 U/L (0-32); Blood Urea Nitrogen 39 mg/dL (8-23); Calcium 8.9 mg/dL (8.5-10.5); Carbon Dioxide 25 mmol/L (22-29); Chloride 99 mmol/L (98-107); Globulin 2.9 g/dL (1.3-4.6); Glucose 90 mg/dL (65-115); Osmolality Calculated 293 mOsm/kg (285-295); Sodium 137 mmol/L (136-145); Total Bilirubin 0.5 mg/dL (0.15-1.2); Total Protein 5.6 g/dL (6.6-8.7)
[2021-08-02 01:30] LABS: Magnesium 1.9 mg/dL (1.7-2.3); Phosphorus 3.3 mg/dL (2.5-4.5)
[2021-08-02 01:31] LABS: Chol HDL Ratio 3.37 mg/dL (0.0-4.40); Cholesterol 128 mg/dL (0-200); HDL Cholesterol 38 mg/dL (60-100); LDL Cholesterol Calculated 66 mg/dL (50-129); Triglycerides 120 mg/dL (0-150); VLDL Cholestrol Calculation 24 mg/dL (0-30)
[2021-08-02 01:34] LABS: Partial Thromboplastin Time 76.8 SECONDS (23.9-36.7)
[2021-08-02 01:37] LABS: Vancomycin Random 13.4 ug/mL (20.0-40.0)
[2021-08-02 02:32] LABS: Potassium, Radom Urine 33 mmol/L; Urine Creatinine 57 mg/dL (28-217); Urine Random Chloride 50 mmol/L; Urine Random Sodium 70 mmol/L
[2021-08-02 03:01] LABS: Eosinophil Urine No Eosinophils Seen; Urine Eosinophil Count 0 (0-0)
[2021-08-02] MEDS: piperacillin-tazobactam 3.375 GM in sodium chloride 0.9% (plus) 50 ML IV ×3 (03:54→19:01)
--- NOTE | 2021-08-02 06:50 | PM.CONSULT ---
Providers/Reason For Consult Consulting Physician/Specialty*: Dr. Sawant/cardiothoracic surgery Reason for Consult*: Gangrenous changes with tissue loss left lower extremity Requesting Physician: Dr. Thompson Attending Physician: Arnold Powell MD History of Present Illness History of Present Illness Mami Vincent is an 81 year old female who presented to the emergency department from a local skilled care facility with ward gangrenous changes to her right lower extremity by the distal posterior and lateral half of her left lower leg as well as discolored changes to her toes. There are malodorous ulcerations, particularly involving the lateral and posterior aspect of the left leg. An ARELI done previously on July 22 described 0.74 on the right and 0.59 on the left. Apparently, arterial duplex has been performed but official reading is not available on the chart at this time. 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 No DVT was seen. Verbal report of the arterial duplex as noted in the admission history and physical examination by Dr. Powell describe a severe arterial disease Ms. Vincent does not appear to be in any distress. She is minimally conversive. Presented with leukocytosis of 16.3. Afebrile. She does have chronic renal insufficiency with a BUN of 46 and creatinine 1.6. Review of Systems General: Reports: ROS unobtainable due to mental status Medications/Allergies Home Medications Medication Instructions Recorded Confirmed Last Taken Type Saccharomyces boulardii 250 mg 250 mg PO DAILY 08/01/21 08/01/21 Unknown History capsule acetaminophen 325 mg tablet 325 mg PO Q4H PRN 08/01/21 08/01/21 Unknown History (Tylenol) acetaminophen 650 mg rectal 650 mg CO Q6H PRN 08/01/21 08/01/21 Unknown History suppository alprazolam 0.25 mg tablet 0.25 mg PO DAILY 08/01/21 08/01/21 Unknown History amlodipine 5 mg tablet 5 mg PO DAILY 08/01/21 08/01/21 Unknown History aspirin 325 mg tablet 325 mg PO DAILY 08/01/21 08/01/21 Unknown History atorvastatin 10 mg tablet 10 mg PO DAILY 08/01/21 08/01/21 Unknown History cephalexin 500 mg capsule 500 mg PO Q12H 08/01/21 08/01/21 Unknown History diclofenac sodium 1 % topical gel 2 g TOPICAL TID PRN 08/01/21 08/01/21 Unknown History fentanyl 12 mcg/hr transdermal 1 patch TRANSDERMAL Q72H 08/01/21 08/01/21 Unknown History patch furosemide 20 mg tablet (Lasix) 20 mg PO DAILY 08/01/21 08/01/21 Unknown History lanolin alcohols-mineral 1 applic TOPICAL DAILY PRN 08/01/21 08/01/21 Unknown History oil-w.petrolatum-ceresin topical cream (Eucerin) lisinopril 10 mg tablet 10 mg PO DAILY 08/01/21 08/01/21 Unknown History olanzapine 2.5 mg tablet 2.5 mg PO DAILY 08/01/21 08/01/21 Unknown History potassium chloride 20 mEq 20 meq PO DAILY 08/01/21 08/01/21 Unknown History tablet,extended release sertraline 100 mg tablet 100 mg PO DAILY 08/01/21 08/01/21 Unknown History sodium chloride 0.65 % nasal spray 1 spray INTRANASAL Q6H PRN 08/01/21 08/01/21 Unknown History aerosol ([place] Nasal) tramadol 50 mg tablet 50 mg PO Q4H PRN 08/01/21 08/01/21 Unknown History Allergies Allergy/AdvReac Type Severity Reaction Status Date / Time influenza virus vaccine ts Allergy ALGY-Anaphy Verified 08/01/21 16:39 [id number] (36 mos,up) laxis [From Flulaval] Current Medications Generic Name Dose Route Start Last Admin Trade Name Freq PRN Reason Stop Dose Admin Famotidine 20 mg 08/01/21 19:00 08/01/21 22:13 Famotidine 20 Mg/2 Ml Inj IVP 20 mg Q12H ROGELIO Administration Heparin Sodium (Porcine) 0 unit 08/01/21 17:34 08/01/21 19:00 Heparin 5,000 Unit/Ml Inj 1 Ml IV 3,000 unit PRN PRN Administration Heparin weight-base protocol Protocol Heparin Sodium/Sodium Chloride 25,000 unit in 500 mls @ 0 mls/hr 08/01/21 17:45 08/01/21 19:11 Heparin Drip IV 14.41 unit/kg/hr .Q0M ROGELIO 17 mls/hr Administration Protocol Per Protocol Piperacillin Sod/Tazobactam 50 mls @ 12.5 mls/hr 08/01/21 19:00 08/02/21 03:54 Sod 3.375 gm/ Sodium Chloride IV 12.5 mls/hr Q8H ROGELIO Administration Protocol Sodium Chloride 1,000 mls @ 50 mls/hr 08/01/21 20:39 08/01/21 22:12 Sodium Chloride 0.9% IV 50 mls/hr .Q20H ROGELIO Administration Morphine Sulfate 1 mg 08/01/21 20:39 08/01/21 23:18 Morphine 4 Mg/Ml Sdv 1 Ml IVP 1 mg Q4H PRN Administration SEVERE PAIN PFSH Acute PFSH: Medical History CKD (chronic kidney disease) stage 3, GFR 30-59 ml/min Dementia DNR (do not resuscitate) HTN (hypertension) Leg wound, left Leg wound, right Peripheral vascular disease Social History Smoking and tobacco status: never smoked Alcohol intake: never Household members: other Housing: [facility] Marital status: / Vitals/I&O/Wt Last Vital Signs Temp 97.7 F 08/02/21 04:00 Pulse 62 08/02/21 04:00 Resp 16 08/02/21 04:00 BP 132/50 08/02/21 04:00 Pulse Ox 90 08/02/21 04:00 08/01/21 08/01/21 08/02/21 14:59 22:59 06:59 Intake Total 250 / 250 50 / 300 Output Total 200 / 200 Balance 250 / 250 -150 / 100 Weight last 48 hrs Weight 137 lb 11.2 oz Weight 146 lb 4.8 oz Weight 130 lb Physical Exam HENMT: COMMON NORMALS: normocephalic, atraumatic and external ears normal HEAD & SCALP: normocephalic and atraumatic EXTERNAL EAR: Yes external ears normal Chest: COMMONS NORMALS: normal inspection of the chest and normal palpation of entire chest wall Resp: COMMON NORMALS: normal respiratory effort and clear to auscultation bilaterally AUSCULTATION: clear to auscultation bilaterally Cardio: COMMON NORMALS: regular rate, regular rhythm and S1 normal heart sound present RATE: regular rate RHYTHM: regular rhythm HEART SOUNDS: S1 normal heart sound present GI: COMMON NORMALS: Normal to inspection, nondistended, normoactive bowel sounds present and Soft to palpation PALPATION: Yes Soft to palpation Extremity: NARRATIVE EXTREMITY EXAM: There are ward gangrenous changes to the lateral aspect of the left leg from the mid leg distally. There is wet gangrenous changes to the posterior aspect of the left leg. There are early dry gangrenous changes to the toes of the left foot. There is malodor. Left knee and thigh appear to be uninvolved. Urinary Catheter Management: Perez: Cath Placed During This Visit: yes Reason for Continuing Indwelling Catheter: Required Immobilization for Trauma or Surgery or Anesthesia Urinary Catheter Date of Insertion: 08/02/21 Urinary Catheter Time of Insertion: 01:30 Data : 08/02/21 01:00 08/02/21 01:00 Micro: Microbiology 08/01/21 16:55 Blood Culture - Preliminary Blood SPECIMEN COLLECTED 08/01/21 17:00 Blood Culture - Preliminary Blood SPECIMEN COLLECTED A&P Assessment and plan (1) Gangrene due to arterial insufficiency: Ward gangrenous changes to the left lower extremity involving the mid and distal leg as well as the toes of the left foot. Currently, her [id number], which has DURABLE POWER [employer], is in further discussions with family as to how they would like to proceed. I have tentatively made preparations available OR staff for left above-knee amputation this evening at 3 PM. Current IV heparin will need to be discontinued by 9 AM to allow for this to occur in a safe manner. I will be discussing further with Dr. Powell this morning as to how we should proceed. Status: Acute Coding Level of Care Code New Pt Acute Actuarial Mathematician for Chg Fwd Patient Type New History Detailed Exam Detailed Medical Decision Making Moderate Complexity Diagnoses Gangrene due to arterial insufficiency I77.1; I96 Time Spent (min) 30
--- NOTE | 2021-08-02 07:39 | PM.CONSULT ---
Providers/Reason For Consult Consulting Physician/Specialty*: Charanjit Carcamo MD/Interventional cardiology Reason for Consult*: Peripheral artery disease Requesting Physician: Dr Powell Attending Physician: Arnold Powell MD History of Present Illness History of Present Illness Mami Vincent is a 81 year old female with past medical history of hypertension and PAD presented to the ER from [facility] facility with gangrenous changes to the left lower extremity with discoloration of the toes. There are significant ulcerations that are malodorous along the lateral and posterior aspect of the left lower extremity. Arterial duplex was performed and was reported to have minimal blood flow. Patient is DNR/DNI and does not give any significant history. She has leukocytosis, creatinine is 1.6. Review of Systems General: Reports: ROS unobtainable due to mental status Medications/Allergies Home Medications Medication Instructions Recorded Confirmed Last Taken Type Saccharomyces boulardii 250 mg 250 mg PO DAILY 08/01/21 08/01/21 Unknown History capsule acetaminophen 325 mg tablet 325 mg PO Q4H PRN 08/01/21 08/01/21 Unknown History (Tylenol) acetaminophen 650 mg rectal 650 mg NV Q6H PRN 08/01/21 08/01/21 Unknown History suppository alprazolam 0.25 mg tablet 0.25 mg PO DAILY 08/01/21 08/01/21 Unknown History amlodipine 5 mg tablet 5 mg PO DAILY 08/01/21 08/01/21 Unknown History aspirin 325 mg tablet 325 mg PO DAILY 08/01/21 08/01/21 Unknown History atorvastatin 10 mg tablet 10 mg PO DAILY 08/01/21 08/01/21 Unknown History cephalexin 500 mg capsule 500 mg PO Q12H 08/01/21 08/01/21 Unknown History diclofenac sodium 1 % topical gel 2 g TOPICAL TID PRN 08/01/21 08/01/21 Unknown History fentanyl 12 mcg/hr transdermal 1 patch TRANSDERMAL Q72H 08/01/21 08/01/21 Unknown History patch furosemide 20 mg tablet (Lasix) 20 mg PO DAILY 08/01/21 08/01/21 Unknown History lanolin alcohols-mineral 1 applic TOPICAL DAILY PRN 08/01/21 08/01/21 Unknown History oil-w.petrolatum-ceresin topical cream (Eucerin) lisinopril 10 mg tablet 10 mg PO DAILY 08/01/21 08/01/21 Unknown History olanzapine 2.5 mg tablet 2.5 mg PO DAILY 08/01/21 08/01/21 Unknown History potassium chloride 20 mEq 20 meq PO DAILY 08/01/21 08/01/21 Unknown History tablet,extended release sertraline 100 mg tablet 100 mg PO DAILY 08/01/21 08/01/21 Unknown History sodium chloride 0.65 % nasal spray 1 spray INTRANASAL Q6H PRN 08/01/21 08/01/21 Unknown History aerosol ([place] Nasal) tramadol 50 mg tablet 50 mg PO Q4H PRN 08/01/21 08/01/21 Unknown History Allergies Allergy/AdvReac Type Severity Reaction Status Date / Time influenza virus vaccine ts Allergy ALGY-Anaphy Verified 08/01/21 16:39 [id number] (36 mos,up) laxis [From Flulaval] Current Medications Generic Name Dose Route Start Last Admin Trade Name Freq PRN Reason Stop Dose Admin Famotidine 20 mg 08/01/21 19:00 08/01/21 22:13 Famotidine 20 Mg/2 Ml Inj IVP 20 mg Q12H ROGELIO Administration Heparin Sodium (Porcine) 0 unit 08/01/21 17:34 08/01/21 19:00 Heparin 5,000 Unit/Ml Inj 1 Ml IV 3,000 unit PRN PRN Administration Heparin weight-base protocol Protocol Heparin Sodium/Sodium Chloride 25,000 unit in 500 mls @ 0 mls/hr 08/01/21 17:45 08/01/21 19:11 Heparin Drip IV 14.41 unit/kg/hr .Q0M ROGELIO 17 mls/hr Administration Protocol Per Protocol Piperacillin Sod/Tazobactam 50 mls @ 12.5 mls/hr 08/01/21 19:00 08/02/21 03:54 Sod 3.375 gm/ Sodium Chloride IV 12.5 mls/hr Q8H ROGELIO Administration Protocol Sodium Chloride 1,000 mls @ 50 mls/hr 08/01/21 20:39 08/01/21 22:12 Sodium Chloride 0.9% IV 50 mls/hr .Q20H ROGELIO Administration Morphine Sulfate 1 mg 08/01/21 20:39 08/01/21 23:18 Morphine 4 Mg/Ml Sdv 1 Ml IVP 1 mg Q4H PRN Administration SEVERE PAIN PFSH Acute PFSH: Medical History CKD (chronic kidney disease) stage 3, GFR 30-59 ml/min Dementia DNR (do not resuscitate) HTN (hypertension) Leg wound, left Leg wound, right Peripheral vascular disease Social History Smoking and tobacco status: never smoked Alcohol intake: never Household members: other Housing: Care Home Marital status: / Vitals/I&O/Wt Last Vital Signs Temp 97.7 F 08/02/21 04:00 Pulse 62 08/02/21 04:00 Resp 16 08/02/21 04:00 BP 132/50 08/02/21 04:00 Pulse Ox 90 08/02/21 04:00 08/01/21 08/02/21 08/02/21 22:59 06:59 14:59 Intake Total 250 / 250 50 / 300 Output Total 200 / 200 Balance 250 / 250 -150 / 100 Weight last 48 hrs Weight 137 lb 11.2 oz Weight 146 lb 4.8 oz Weight 130 lb Physical Exam Narrative: GENERAL: Patient is alert, does not answer question secondary to dementia NECK: No jugular vein distension. [] HEENT: No cyanosis. No icterus. No pallor. [] HEART: Regular S1 and S2. No murmur, rub or gallop. [] LUNGS: Clear to auscultate bilaterally. [] ABDOMEN: Soft, nontender and nondistended. Positive bowel sounds. No guarding, rebound or tenderness. [] CENTRAL NERVOUS SYSTEM: Grossly nonfocal. [] EXTREMITIES:Left lower extremity has wet gangrenous changes with toes showing dry gangrene Urinary Catheter Management: Perez: Cath Placed During This Visit: yes Reason for Continuing Indwelling Catheter: Required Immobilization for Trauma or Surgery or Anesthesia Urinary Catheter Date of Insertion: 08/02/21 Urinary Catheter Time of Insertion: 01:30 Data : 08/02/21 01:00 08/02/21 01:00 Micro: Microbiology 08/01/21 16:55 Blood Culture - Preliminary Blood SPECIMEN COLLECTED 08/01/21 17:00 Blood Culture - Preliminary Blood SPECIMEN COLLECTED A&P Assessment and plan (1) Gangrene due to arterial insufficiency: Status: Acute (2) HTN (hypertension): Status: Acute (3) Dementia: Status: Acute (4) Limb ischemia: Status: Acute (5) LEON (acute kidney injury): Status: Acute (6) Peripheral vascular disease: Status: Acute Plan Patient has presented with gangrenous changes of the left lower extremity. Arterial duplex read is not back yet however was reported to have minimal blood flow below the knee. Given her gangrenous changes, revascularization will not be beneficial in healing the ulceration as gangrene has already set in. She will benefit from amputation. Can consider revascularization later if concerns for poor stump healing Thank you for involving us with care of this patient. Please call with questions Coding Level of Care Code Acute Presidential Support Specialist for Martinez Tovar Diagnoses Gangrene due to arterial insufficiency I77.1; I96 HTN (hypertension) I10 Dementia F03.90 Limb ischemia I99.8 LEON (acute kidney injury) N17.9 Peripheral vascular disease I73.9
--- NOTE | 2021-08-02 08:04 | ANES.PREANE2 ---
Pre-Anesthetic Assessment Height/Weight: Height 1.7 m Weight 62.46 kg Temp Pulse Resp BP Pulse Ox 98.2 F 70 16 154/56 91 08/02/21 07:39 08/02/21 07:39 08/02/21 07:39 08/02/21 07:39 08/02/21 07:39 Preop Diagnosis: Gangre due to arterial insufficiency Operation Date: 08/02/21 14:45 Proposed Procedures p Debridement(Left) - Karri Sawant MD s Above Knee Amputation(Left) - Karri Sawant MD Familial anesthetic complications: one Was Beta José Luis taken within 24 hours: N/A Was Clonidine taken within 24 hours: N/A Last intake: 08/01/2021 Social No alcohol and No tobacco Exam alert, oriented x 3, clear to auscultation bilaterally and regular rate & rhythm Airway Submandibular: Other (Less than 2 finger breadths ) Cervical ROM: Other (Limited extension and flexioon ) Mallampati: Class III Dentition: false Pulmonary None reported CV/HEM Anemia, Hypertension and Peripheral Vascular Disease Venous duplex 08/01/21 US/CV venous duplex [facility] [id number] IMPRESSION: 1. Suspect probable occluding thrombus in the left posterior tibial vein, see above discussion. 2. Possible chronic thrombus in the mid right superficial femoral vein, details above. 3. No other evidence for the deep venous thrombosis in either lower extremity at this time. 4. Limitations as discussed above. ? Chronic Renal Insufficiency Does not ambulate METS < 4 LEON TTE 08/01/21 CONCLUSIONS ?Normal left ventricular size and systolic function, EF 83 %. ?Mild left ventricular hypertrophy. ?Grade I/IV diastolic dysfunction (abnormal relaxation filling ?pattern), normal to mildly elevated filling pressures. ?Mildly increased left atrial size. ?Trace aortic valve regurgitation. ?Trace to mild tricuspid valve regurgitation. ?Estimated pulmonary artery peak systolic pressure of 39 mmHg ?There is no pericardial effusion. ?There are no intracardiac masses. ?No previous study is available for comparison. Hepatic Elevated AST/ALT GI None reported Metabolic None reported Musc/skel Gangrene due to arterial insufficiency Neuropsych Dementia Oriented to person, year, president of [employer], situation Anesthetic Plan ASA status: 4 Anesthesia: Anesthesia Evaluation, General and Regional (specify below) (Femoral and sciatic nerve blocks for post op pain control) Other: Discussion had with patient, daughter in law, and patient's son. We discussed risk and benefits of general anesthesia including PONV, sore throat (sometimes severe), corneal abrasion, positioning and peripheral nerve injuries, life threatening allergic reaction, post operative ICU admission requiring prolonged intubation, stroke, heart attack, , and rare incidences of recall. Patient consents to proceed with general anesthesia with nerve blocks for post op pain control. Son consents as well. We discussed risk and benefits of nerve block for post op pain control including management of pain and titration of pain medications as signs/symptoms of nerve block wearing off begin to appear and/or prior bed. We discussed risk of failed nerve block, vascular injury or other vital structure injury, abscess/infection, LAST, and nerve injury. Plan femoral and sciatic nerve blocks for post op pain control and general anesthesia. Risk of > 500 ml blood loss (7ml/kg in children): No Other Pertinent Information Patient is a DNR. I discussed DNR in the soto operative setting with the family today and various options regarding resuscitation . Patient decided she would NOT like chest compressions today in the event of a cardiac arrest. The patient decided she WILL accept cardiovascular medications and a breathing device in the soto operative period and during surgery. Patient and family understand that in the event of difficulty weaning from ventilator patient will be taken to the ICU for further decision making/management. Medications/Allergies Home Medications Medication Instructions Recorded Confirmed Last Taken Type Saccharomyces boulardii 250 mg 250 mg PO DAILY 08/01/21 08/01/21 Unknown History capsule acetaminophen 325 mg tablet 325 mg PO Q4H PRN 08/01/21 08/01/21 Unknown History (Tylenol) acetaminophen 650 mg rectal 650 mg MA Q6H PRN 08/01/21 08/01/21 Unknown History suppository alprazolam 0.25 mg tablet 0.25 mg PO DAILY 08/01/21 08/01/21 Unknown History amlodipine 5 mg tablet 5 mg PO DAILY 08/01/21 08/01/21 Unknown History aspirin 325 mg tablet 325 mg PO DAILY 08/01/21 08/01/21 Unknown History atorvastatin 10 mg tablet 10 mg PO DAILY 08/01/21 08/01/21 Unknown History cephalexin 500 mg capsule 500 mg PO Q12H 08/01/21 08/01/21 Unknown History diclofenac sodium 1 % topical gel 2 g TOPICAL TID PRN 08/01/21 08/01/21 Unknown History fentanyl 12 mcg/hr transdermal 1 patch TRANSDERMAL Q72H 08/01/21 08/01/21 Unknown History patch furosemide 20 mg tablet (Lasix) 20 mg PO DAILY 08/01/21 08/01/21 Unknown History lanolin alcohols-mineral 1 applic TOPICAL DAILY PRN 08/01/21 08/01/21 Unknown History oil-w.petrolatum-ceresin topical cream (Eucerin) lisinopril 10 mg tablet 10 mg PO DAILY 08/01/21 08/01/21 Unknown History olanzapine 2.5 mg tablet 2.5 mg PO DAILY 08/01/21 08/01/21 Unknown History potassium chloride 20 mEq 20 meq PO DAILY 08/01/21 08/01/21 Unknown History tablet,extended release sertraline 100 mg tablet 100 mg PO DAILY 08/01/21 08/01/21 Unknown History sodium chloride 0.65 % nasal spray 1 spray INTRANASAL Q6H PRN 08/01/21 08/01/21 Unknown History aerosol ([place] Nasal) tramadol 50 mg tablet 50 mg PO Q4H PRN 08/01/21 08/01/21 Unknown History Allergies Allergy/AdvReac Type Severity Reaction Status Date / Time influenza virus vaccine ts Allergy ALGY-Anaphy Verified 08/01/21 16:39 [id number] (36 mos,up) laxis [From Flulaval] Current Medications Generic Name Dose Route Start Last Admin Trade Name Freq PRN Reason Stop Dose Admin Famotidine 20 mg 08/01/21 19:00 08/01/21 22:13 Famotidine 20 Mg/2 Ml Inj IVP 20 mg Q12H ROGELIO Administration Heparin Sodium (Porcine) 0 unit 08/01/21 17:34 08/01/21 19:00 Heparin 5,000 Unit/Ml Inj 1 Ml IV 3,000 unit PRN PRN Administration Heparin weight-base protocol Protocol Heparin Sodium/Sodium Chloride 25,000 unit in 500 mls @ 0 mls/hr 08/01/21 17:45 08/01/21 19:11 Heparin Drip IV 14.41 unit/kg/hr .Q0M ROGELIO 17 mls/hr Administration Protocol Per Protocol Piperacillin Sod/Tazobactam 50 mls @ 12.5 mls/hr 08/01/21 19:00 08/02/21 03:54 Sod 3.375 gm/ Sodium Chloride IV 12.5 mls/hr Q8H ROGELIO Administration Protocol Sodium Chloride 1,000 mls @ 50 mls/hr 08/01/21 20:39 08/01/21 22:12 Sodium Chloride 0.9% IV 50 mls/hr .Q20H ROGLEIO Administration Morphine Sulfate 1 mg 08/01/21 20:39 08/01/21 23:18 Morphine 4 Mg/Ml Sdv 1 Ml IVP 1 mg Q4H PRN Administration SEVERE PAIN PFSH Anesthesia Medical History CKD (chronic kidney disease) stage 3, GFR 30-59 ml/min Dementia DNR (do not resuscitate) HTN (hypertension) Leg wound, left Leg wound, right Peripheral vascular disease Social History Smoking and tobacco status: never smoked Alcohol intake: never Household members: other Housing: Detention Marital status: / Data Anesthesia : 08/02/21 01:00 08/02/21 01:00 Short CBC 08/01/21 08/02/21 Range/Units 17:00 01:00 WBC 16.3 H 16.1 H (4.0-10.0) 10^3/uL Hgb 12.7 10.7 L (11.5-15.3) g/dL Hct 39.7 33.8 L (37.0-47.0) % MCV 94.7 95.2 (81-99) fl Plt Count 347 329 (130-400) 10^3/cmm Neut % (Auto) 84.7 81.7 % Neut # (Auto) 13.82 H 13.15 H (1.8-7.7) 10^3/uL BMP 08/01/21 08/02/21 17:00 01:00 Sodium 141 137 Potassium 4.3 4.0 Chloride 100 99 Carbon Dioxide 27 25 BUN 46 H 39 H Creatinine 1.6 H 1.6 H Glucose 92 90 Calcium 9.1 8.9 Liver Function 08/01/21 08/02/21 Range/Units 17:00 01:00 Total Bilirubin 0.4 0.5 (0.15-1.2) mg/dL AST 112 H 77 H (0-32) U/L ALT 118 H 93 H (0-33) U/L Alkaline Phosphatase 135 H 105 (35-105) IU/L Albumin 2.9 L 2.7 L (3.5-5.2) g/dL Coags 08/01/21 08/01/21 08/02/21 17:00 17:00 01:00 PT 14.20 INR 1.07 APTT 32.2 76.8 H D C-Reactive Protein 128.1 H Microbiology 08/01/21 16:55 Blood Culture - Preliminary Blood SPECIMEN COLLECTED 08/01/21 17:00 Blood Culture - Preliminary Blood SPECIMEN COLLECTED Cardiac Studies: Echocardiogram 08/01/21
[2021-08-02] MEDS: famotidine 20 mg/2 mL INJ IVP ×2 (08:55→19:01)
[2021-08-02 09:00] LABS: Partial Thromboplastin Time 56.8 SECONDS (23.9-36.7)
[2021-08-02 09:43] LABS: Add Urine Microscopic? YES; Bilirubin Urine Neg (Negative); Blood Urine 3+ (Negative); Glucose Urine UA Norm (Normal); Ketones Urine Negative (Negative); Leukocyte Esterase Urine Negative (Negative); Nitrate Urine Negative (Negative); Protein Urine 1+ (Negative); Specific Gravity, Urine 1.015 (1.005-1.030); Urine Appearance SL Hazy (CLEAR); Urine Color Yellow (Yellow); Urobilinogen Urine Norm (Negative); pH Urine 5 (5-7)
[2021-08-02 09:44] LABS: Add Urine Culture? Yes; Bacteria Urine TRACE /hpf; RBC Urine 50-80 /hpf (0-2); Squamous Epithelial Cell Urine 0-4 /hpf (0-5)
[2021-08-02] MEDS: amlodipine 5 mg Tablet PO (09:48)
[2021-08-02] MEDS: ALPRAZolam 0.5 mg Tablet 0.25 MG PO (09:48)
--- NOTE | 2021-08-02 10:20 | PC.CHAP ---
Pastoral Care Encounter/Spiritual Assessment Type of Contact [] Declined waste cotton cleaner visit [] Patient/Family/Request visit [] Outpatient visit [] Follow-up visit [] Physician referral [] Code/Alert [x] Routine visit [] Staff referral [] Actively dying [] Patient sleeping [] Family support [] [] Out of room [] Palliative care [] [] Receiving care in room [] Pre-surgical visit [] Trauma [] Long length of stay [] ICU visit [] Other: Relational/Emotional Strength [x] Patient feels connected with others/family/visitors/staff [] Distress [] Loneliness/isolation [] Abandonment Spirituality of Patient [x] Person of Dot [] Attends Sabianist of their Dot [x] Believes in Prayer [] Reads Bible or Anabaptism materials [] There are Spiritual issues to be addressed Correctional Substance Abuse Counselor Interventions [x] Prayer [x] Active listening [x] Non-anxious presence [x] Spiritual/emotional support [] Crisis/trauma care [] Spiritual counseling [] Bereavement support [] Provided bereavement packet [] Provided Bible/devotional materials [] Provided toy/stuffed animal, coloring book to patient or family member [] Provided Communion [] Anointing/[place] [] Salvation [x] Completed spiritual assessment [] Other: Impact on Illness or Injury [] Angry [] Fearful [] Anxious [] Often cries [] Exhaustion [] Unable to work [] Unable to attend jainism [] Unable to walk/stand [] Unable to read [] Unable to drive [] Unable to eat/drink [] Unable to sleep [] Unable to be with family [] Patient intubated [] Other: Summary Time spent with patient 15 min
[2021-08-02] MEDS: morphine 4 mg/mL SDV 1 mL 1 MG IVP (11:00)
--- NOTE | 2021-08-02 13:27 | P.PN_ITS ---
Subjective Subjective: Today morning seen with family at bedside. Patient lying comfortably in bed. States she is feeling okay. Denies any active complaints. Seems to be at her baseline mentation. Seems to be okay with plan for amputation. Vitals/I&O/Wt Last Vital Signs Temp 98.2 F 08/02/21 12:00 Pulse 57 L 08/02/21 12:00 Resp 17 08/02/21 12:00 BP 131/67 08/02/21 12:00 Pulse Ox 90 08/02/21 12:00 08/01/21 08/02/21 08/02/21 22:59 06:59 14:59 Intake Total 250 / 250 50 / 300 50 / 50 Output Total 200 / 200 450 / 450 Balance 250 / 250 -150 / 100 -400 / -400 Weight last 48 hrs Weight 62.46 kg Weight 66.361 kg Weight 58.967 kg Physical Exam Narrative: General: No acute distress, AO x 2-3, forgetful, chronically sick appearing, dehydrated, bilateral temporal wasting HEENT: PERRLA, pupils bilaterally equal and reactive Chest: Normal vesicular breath sounds, no added sounds, equal good air entry bilaterally CVS: S1-S2 regular, no murmurs, no tachycardia, no gallops, no rubs Abdomen: Soft, nontender, no organomegaly, bowel sounds present Neuro: No focal deficits, no facial deformity, AO x3, power 5/5 in all limbs Extremity: NARRATIVE EXTREMITY EXAM: Bilateral legs dressed. No staining or malodor present. Urinary Catheter Management: Perez: Cath Placed During This Visit: yes Reason for Continuing Indwelling Catheter: Required Immobilization for Trauma or Surgery or Anesthesia Urinary Catheter Date of Insertion: 08/02/21 Urinary Catheter Time of Insertion: 01:30 Data : 08/02/21 01:00 08/02/21 01:00 Micro: Microbiology 08/01/21 16:55 Blood Culture - Preliminary Blood SPECIMEN COLLECTED 08/01/21 17:00 Blood Culture - Preliminary Blood SPECIMEN COLLECTED A&P Assessment and plan (1) Arterial insufficiency with ischemic ulcer: Status: Acute (2) Limb ischemia: Status: Acute (3) Peripheral vascular disease: Status: Acute (4) LEON (acute kidney injury): Status: Acute (5) CKD (chronic kidney disease) stage 3, GFR 30-59 ml/min: Status: Acute (6) Dementia: Status: Acute (7) HTN (hypertension): Status: Acute Plan Ulcer secondary to arterial insufficiency in setting of limb ischemia: Appreciate lower limb arterial duplex. Case discussed with cardiology and cardiothoracic surgery. Stop heparin drip. Care discussed in detail with multiple speciality involved including Dr. Carcamo and Dr. Sawant and they conferred that plan for amputation is the best plan of care going forward given patient's clinical condition. Plan of care discussed in detail with patient's family. We discussed that the safest bet currently given her acute kidney injury, presence of dry to wet gangrene on multiple toes and the back of the leg if to go ahead and do amputation. We discussed that patient is at a higher risk of failure of revascularization, kidney failure with peripheral angioplasty and it is possible that peripheral angioplasty could not prevent amputation also. Amputation at this point is going to prevent her from septic shock or sepsis. Family verbalizes understanding and would want to go ahead with the procedure. Continue with vancomycin and Zosyn as per creatinine clearance. Wound dressing as per recommendation from Dr. Sawant. From now start with Optifoam. Postoperative anticoagulation, physical therapy, Occupational Therapy, perioperative antibiotics as per surgical team. Acute kidney injury: Most likely secondary to sepsis along with dehydration. Fena?1.4%. Consistent with intrinsic. Appreciate urinalysis. Negative for eosinophils, sediments. Continue with gentle IV hydration and monitor for fluid overload. Medical reconciliation done for nephrotoxic drugs. Monitor BMP daily. Hypertension: Goal blood pressure less than 140/90 mmHg. At home patient takes amlodipine 5 mg, lisinopril, Lasix. For now continue with amlodipine. Hold off on Lasix and lisinopril. Check echocardiogram. Continue other chronic home medications. Tramadol p.o. every 4 hourly as needed for pain. Goals of care discussion: Multiple discussions as above. Family agreeable for [id number] amputation for now. DNR/DNI. Heparin drip to be stopped for OR today. Postoperative anticoagulation as per Dr. Sawant Famotidine for PUD prophylaxis. N.p.o. overnight. Can restart diet post procedure. Attestations Medical Necessity Statement*: Requires further hospitalization for management of ulceration/gangrene secondary to arterial insufficiency of left leg in setting of limb ischemia requiring amputation, acute kidney injury Time Spent in Patient Care: Greater than 35 minutes Coding Level of Care Code Acute President & Founder for Chg Fwd Diagnoses Arterial insufficiency with ischemic ulcer I77.1; L98.499 Limb ischemia I99.8 Peripheral vascular disease I73.9 LEON (acute kidney injury) N17.9 CKD (chronic kidney disease) stage 3, GFR 30-59 ml/min N18.30 Dementia F03.90 HTN (hypertension) I10
[2021-08-02] MEDS: sodium chloride 0.9% 1,000 ML 30 ML IV (14:13)
--- NOTE | 2021-08-02 15:00 | PC.NURSE ---
NERVE BLOCK DONE BY DR VÁSQUEZ. PT TOLERATED WELL.
--- NOTE | 2021-08-02 15:30 | P.ANES_ITS ---
Anesthesia Procedures Procedure/Date: 08/02/21 Nerve Block ^: Nerve Block 1: Main Anesthesia: general anesthesia Time Out Performed: Yes (0220) Consent: requested by attending/covering physician and from patient Nerve block location: femoral Anesthesia monitors applied: pulse oximetry, EKG, BP cuff and oxygen Nerve block position: supine Anesthetic Used: ropivicaine 0.5% Amount of anesthesia used (mL): 15 Ultrasound used to: recognize landmarks and visualize and ID femerol nerve Nerve Stimulator Used?: Yes (No stimulation below 0.4 mA) Interscalene/Femoral BLK: 4 stimuplex 21 g needle used for position and inplane approach, visualize local anesthetic spread and no vascular puncture identified Injection: neg aspiration of heme Patient Tolerated Procedure: well Complications: none Additional Comments: After time out sterile prep, using sterile technique, and using real time US guidance for target selection needle was inserted with real time visualization of needle entry and real time visualization of needle advancement toward intended target. Negative aspiration. LA injected incrementally with negative aspiration every 5 cc and real time US visualization of LA spread throughout procedure. Tolerated well. Image(s) saved.
--- NOTE | 2021-08-02 15:32 | P.ANES_ITS ---
Anesthesia Procedures Procedure/Date: 08/02/21 Nerve Block ^: Nerve Block 2: Main Anesthesia: general anesthesia Time Out Performed: Yes (0220) Consent: requested by attending/covering physician and from patient Nerve block location: other (sciatic nerve block using US guidance for anterior approach) Anesthesia monitors applied: pulse oximetry, EKG, BP cuff and oxygen Nerve block position: supine Anesthetic Used: bupivacaine 0.5% Amount of anesthesia used (mL): 15 Ultrasound used to: recognize landmarks and other (visualize and ID sciatic nerve) Nerve Stimulator Used?: Yes (Good motor response ( toe flexion) lost at 0.4 mA) Interscalene/Femoral BLK: 4 stimuplex 21 g needle used for position and inplane approach, visualize local anesthetic spread and no vascular puncture identified Injection: neg aspiration of heme Patient Tolerated Procedure: well Complications: none Additional Comments: After time out sterile prep, using sterile technique, and using real time US guidance for target selection needle was inserted with real time visualization of needle entry and real time visualization of needle advancement toward intended target. Negative aspiration. LA injected incrementally with negative aspiration every 5 cc and real time US visualization of LA spread throughout p rocedure. Tolerated well. Image(s) saved.
[2021-08-02] MEDS: vancomycin 1,000 MG SDV 3000 MG IRRIGATION (15:45)
--- NOTE | 2021-08-02 17:13 | PM.OP ---
Operative Report Date of procedure: August 02, 2021 Pre-op diagnosis: Preop Diagnosis gangrene left foot and left leg Procedure done: Left above-knee amputation Specimens removed/disposition: Left leg Surgeon: Karir Sawant Estimated blood loss (mL): 100 Complications: None Brief History: Patient is an 81-year-old female with advanced dementia currently residing at a local skilled care facility. She presented with ward gangrenous changes to the left foot involving the left leg from proximal calf distally. There was malodor and evidence for ongoing infection. Leukocytosis was noted upon admission. Arterial Doppler study suggest severe arterial insufficiency and it is not felt that she can be reconstructed to a point that tissue salvage would be feasible. Therefore, in an attempt to control ongoing localized infection and potential dissemination, left above-knee amputation has been recommended. This was discussed carefully with her son and [id number] who have power of estate planning attorney. Appropriate consents were reviewed and signed. Procedure: Ms. Vincent was taken to the operating room and placed on the OR table in the supine position. She underwent laryngeal mask anesthesia after receiving a left femoral nerve block The entire left lower extremity was sterilely prepped and draped. Left thigh was marked for incision line. #10 scalpel blade was utilized to circumferentially incise the skin in a [place] pattern. Anterior musculature was sharply divided utilizing scalpel and minimal use of cautery. Periosteal elevator was used for dissecting the periosteum off of the femur. Oscillating saw was utilized to divide the femur. Amputation knife was then used posteriorly to complete amputation of the left lower extremity. Meticulous inspection was carried out and hemostasis was controlled with minimal use of cautery, surgical clips, and suture ligature as required. The superficial femoral artery was controlled, retracted proximally, ligated and divided. The sciatic nerve was dissected proximally, ligated, and divided. The wound was irrigated with large amounts of antibiotic solution. Hemostasis was confirmed. A large Hemovac drain was placed beneath the fascia. The fascia was reapproximated with interrupted 0 and 2-0 Vicryl suture. Skin was reapproximated in an interrupted mattress fashion with monofilament suture. Sterile dressings were applied followed by a bulky dressing. The patient tolerated the procedure well and was taken to PACU. I did appliance counselor with family at completion of procedure.
--- NOTE | 2021-08-02 23:13 | PC.NURSE ---
i reported low pulse 57 to nurse
[2021-08-03] MEDS: piperacillin-tazobactam 3.375 GM in sodium chloride 0.9% (plus) 50 ML IV ×2 (02:21→13:37)
[2021-08-03 03:32] VITALS: BP 118/67; PULSE 63; RESP 16; TEMP 36.9; O2SAT 93
[2021-08-03 04:28] LABS: Basophils % 0.1 %; Hematocrit 32.6 % (37.0-47.0); Hemoglobin 9.7 g/dL (11.5-15.3); Lymphocytes # 1.5 10^3/uL (0.8-4.8); Lymphocytes % 8.3 %; Mean Corpuscular HGB Conc 29.8 g/dL (30.0-36.0); Mean Corpuscular Volume 97.3 fl (81-99); Mean Platelet Volume 10.7 fL (7.4-10.4); Monocytes % 5.3 %; Neutrophils # 15.52 10^3/uL (1.8-7.7); Neutrophils % 85.6 %; Nucleated Red Blood Cells % 0 %; Platelet Count 315 10^3/cmm (130-400); Red Blood Count 3.35 10^6/uL (4.1-5.3); Red Cell Distribution Width 12.1 % (12.1-15.1); White Blood Count 18.2 10^3/uL (4.0-10.0)
[2021-08-03 04:48] LABS: Alanine Aminotransferase 61 U/L (0-33); Albumin Level 2.3 g/dL (3.5-5.2); Alkaline Phosphatase 87 IU/L (35-105); Anion Gap 16.7 (5-19); Aspartate Amino Transferase 53 U/L (0-32); Blood Urea Nitrogen 38 mg/dL (8-23); Calcium 8.6 mg/dL (8.5-10.5); Carbon Dioxide 24 mmol/L (22-29); Chloride 108 mmol/L (98-107); Globulin 2.9 g/dL (1.3-4.6); Glucose 97 mg/dL (65-115); Osmolality Calculated 307 mOsm/kg (285-295); Potassium 4.7 mmol/L (3.5-5.1); Sodium 144 mmol/L (136-145); Total Bilirubin 0.3 mg/dL (0.15-1.2); Total Protein 5.2 g/dL (6.6-8.7)
[2021-08-03] MEDS: vancomycin 1,000 MG in sodium chloride 0.9% 250 ML 250 MG IV (05:09)
[2021-08-03] MEDS: famotidine 20 mg/2 mL INJ IVP ×2 (06:08→19:22)
[2021-08-03 07:22] VITALS: BP 139/72; PULSE 68; RESP 18; TEMP 37.1; O2SAT 98
[2021-08-03 08:00] VITALS: BP 128/74; PULSE 74; RESP 17; TEMP 37
--- NOTE | 2021-08-03 08:37 | ANE.PACU2 ---
Inpatient post-anesthesia follow up: Airway intact: Yes Vital signs: Temperature 98.7 F Pulse Rate 68 Respiratory Rate 18 Blood Pressure 139/72 Pulse Oximetry 98 Oxygen Delivery Me thod Room Air Oxygen Flow Rate 1 Fraction of Inspir ed Oxygen Hydration adequate: Yes Nausea and vomiting: No Pain level: 4 Mental status: Baseline
[2021-08-03] MEDS: atorvastatin 40 mg Tablet 20 MG PO (09:04)
[2021-08-03] MEDS: ferrous gluconate 324 mg Tablet PO ×2 (09:04→19:22)
[2021-08-03] MEDS: ALPRAZolam 0.5 mg Tablet 0.25 MG PO (09:04)
[2021-08-03] MEDS: sertraline 100 mg Tablet PO (09:05)
[2021-08-03] MEDS: amlodipine 5 mg Tablet PO (09:05)
[2021-08-03] MEDS: docusate sodium 100 mg Capsule PO ×2 (09:05→19:22)
[2021-08-03] MEDS: acetaminophen 325 mg Tablet 650 MG PO ×2 (09:10→19:21)
--- NOTE | 2021-08-03 09:19 | US_ITS ---
WS: [id number] RENAL ULTRASOUND HISTORY: kacy on ckd COMPARISON: 05/11/2015 TECHNIQUE: 2-D and color Doppler imaging of the kidney submitted. Right kidney: 8.1 cm x 4.5 cm x 3.9 cm. Moderate atrophy and mild cortical thinning. No hydronephrosis or mass. Left kidney: 7.7 cm x 4.7 cm x 4.2 cm. Moderate atrophy and very mild cortical thinning. No hydronephrosis or mass. Aorta: Mild atherosclerosis with no aneurysm. Urinary Bladder: Perez catheter present in the minimally distended urinary bladder. US/US renal BI* [id number] IMPRESSION: 1. Mild atrophy and thinning of the renal cortex. Mild progression of atrophy since 2014. 2. Mild atherosclerosis aorta. 3. No hydronephrosis.
[2021-08-03] MEDS: aspirin 325 mg Tablet PO (10:56)
[2021-08-03] MEDS: morphine 10 mg/0.5 mL oral liq UD 5 MG PO ×2 (11:34→13:37)
[2021-08-03 11:37] VITALS: BP 128/74; PULSE 74; RESP 17; TEMP 37; O2SAT 98
[2021-08-03] MEDS: sodium chloride 0.9% 1,000 ML 75 ML IV (13:37)
--- NOTE | 2021-08-03 14:58 | P.PN_ITS ---
Subjective Subjective: No complaints overnight. Patient has remained hemodynamically stable and afebrile. Seen multiple times during the day today. Family at bedside. Patient underwent left above-knee amputation yesterday. EBL of around 100 cc. Tolerated procedure well. On examination patient lying comfortably in bed without any active complaints or pain. Vitals/I&O/Wt Last Vital Signs Temp 98.6 F 08/03/21 11:37 Pulse 74 08/03/21 11:37 Resp 17 08/03/21 11:37 BP 128/74 08/03/21 11:37 Pulse Ox 98 08/03/21 11:37 08/02/21 08/03/21 08/03/21 22:59 06:59 14:59 Intake Total 240 / 740 1600 / 2340 970 / 970 Output Total 25 / 475 900 / 1375 Balance 215 / 265 700 / 965 970 / 970 Weight last 48 hrs Weight 59.421 kg Weight 62.46 kg Weight 66.361 kg Weight 58.967 kg Physical Exam Narrative: General: No acute distress, AO x 2-3, forgetful, chronically sick appearing, dehydrated, bilateral temporal wasting HEENT: PERRLA, pupils bilaterally equal and reactive Chest: Normal vesicular breath sounds, no added sounds, equal good air entry bilaterally CVS: S1-S2 regular, no murmurs, no tachycardia, no gallops, no rubs Abdomen: Soft, nontender, no organomegaly, bowel sounds present Neuro: No focal deficits, no facial deformity, AO x3, power 5/5 in all limbs Extremity: NARRATIVE EXTREMITY EXAM: Left leg?above-knee amputation. Right leg wound dressed as per surgical recommendations without any soakage Urinary Catheter Management: Perez: Cath Placed During This Visit: yes Reason for Continuing Indwelling Catheter: Required Immobilization for Trauma or Surgery or Anesthesia Urinary Catheter Date of Insertion: 08/02/21 Urinary Catheter Time of Insertion: 01:30 Data : 08/03/21 04:02 08/03/21 04:02 Micro: Microbiology 08/02/21 01:35 Urine Culture - Preliminary Urine Catheterized 08/02/21 08:58 Urine Culture - Preliminary Urine,Clean Catch 08/01/21 16:55 Blood Culture - Preliminary Blood NEGATIVE TO DATE 08/01/21 17:00 Blood Culture - Preliminary Blood NEGATIVE TO DATE 03/08/22 18:50 MRSA Culture - Final Nose A&P Assessment and plan (1) Above knee amputation of left lower extremity: Status: Acute (2) Arterial insufficiency with ischemic ulcer: Status: Acute (3) Limb ischemia: Status: Acute (4) Gangrene due to arterial insufficiency: Status: Acute (5) LEON (acute kidney injury): Status: Acute (6) CKD (chronic kidney disease) stage 3, GFR 30-59 ml/min: Status: Acute (7) Dementia: Status: Acute (8) HTN (hypertension): Status: Acute (9) Peripheral vascular disease: Status: Acute Plan Left above-knee amputation: Postoperative day 1. Ulcer secondary to arterial insufficiency in setting of limb ischemia: Appreciate lower limb arterial duplex. Appreciate cardiology and cardiothoracic surgery recommendations and assistance. Continue with vancomycin and Zosyn as per creatinine clearance for at least 48 hours post procedure. Follow-up blood cultures. Wound dressing as per recommendation from Dr. Sawant. Postoperative anticoagulation, physical therapy, Occupational Therapy, perioperative antibiotics as per surgical team. Leukocytosis: Most likely secondary to OR yesterday. For now continue with antibiotics as above. Continue to monitor for fever or hypotension. Acute kidney injury: Most likely secondary to sepsis along with dehydration. Slight worsening today. Fena?1.4%. Consistent with intrinsic. Appreciate urinalysis. Negative for eosinophils, sediments. Continue with normal saline at 75 cc/h. Medical reconciliation done for nephrotoxic drugs. Monitor BMP daily. Hypertension: Goal blood pressure less than 140/90 mmHg. At home patient takes amlodipine 5 mg, lisinopril, Lasix. For now continue with amlodipine. Blood pressure at goal. Hold off on Lasix and lisinopril. Echocardiogram done shows EF of 53%, mild LVH, grade 1 diastolic dysfunction, mildly increased LA size, trace AI, trace TR with PASP of 39 mmHg. Peripheral arterial disease: Continue with home dose of statin. Continue with aspirin 325 mg daily. Appreciate A1c and lipid panel. Continue other chronic home medications. Tramadol p.o. every 4 hourly as needed for pain. Goals of care discussion: Multiple discussions as above. Family agreeable for [id number] amputation for now. DNR/DNI. Postoperative anticoagulation as per Dr. Sawant. Can restart heparin 5000 every 12 from tomorrow. Famotidine for PUD prophylaxis. Continue with mechanical soft cardiac diet. Attestations Medical Necessity Statement*: Requires further hospitalization for management of left foot gangrene secondary to severe peripheral arterial disease post above-knee amputation, leukocytosis, acute kidney injury Time Spent in Patient Care: Greater than 35 minutes Coding Level of Care Code Acute Annual Greenhouse Manager for Chg Fwd Diagnoses Arterial insufficiency with ischemic ulcer I77.1; L98.499 Limb ischemia I99.8 Peripheral vascular disease I73.9 LEON (acute kidney injury) N17.9 CKD (chronic kidney disease) stage 3, GFR 30-59 ml/min N18.30 Dementia F03.90 HTN (hypertension) I10 Gangrene due to arterial insufficiency I77.1; I96 Above knee amputation of left lower extremity S78.112A
[2021-08-03 16:00] VITALS: BP 92/54; PULSE 63; RESP 17; TEMP 37.1; O2SAT 94
[2021-08-03 19:31] VITALS: BP 97/44; PULSE 62; RESP 16; TEMP 36.4; O2SAT 95
[2021-08-04] VITALS (8 sets, daily range): BP systolic 101–160; BP diastolic 50–76; PULSE 60–82; RESP 16–18; TEMP 36.6–37.2; O2SAT 91–98; BMI 20.5
[2021-08-04] MEDS: acetaminophen 325 mg Tablet 650 MG PO (01:19)
[2021-08-04] MEDS: piperacillin-tazobactam 3.375 GM in sodium chloride 0.9% (plus) 50 ML IV ×2 (02:04→14:44)
[2021-08-04] MEDS: sodium chloride 0.9% 1,000 ML 75 ML IV ×2 (02:23→16:09)
[2021-08-04 03:24] LABS: Basophils % 0.3 %; Eosinophils # 0.1 10^3/uL (0.0-0.8); Eosinophils % 0.8 %; Hematocrit 27.2 % (37.0-47.0); Lymphocytes # 1.6 10^3/uL (0.8-4.8); Lymphocytes % 13.1 %; Mean Corpuscular HGB Conc 29.4 g/dL (30.0-36.0); Mean Corpuscular Hemoglobin 29.2 pg (28.0-34.0); Mean Corpuscular Volume 99.3 fl (81-99); Mean Platelet Volume 10.8 fL (7.4-10.4); Monocytes % 8.4 %; Neutrophils # 9.36 10^3/uL (1.8-7.7); Neutrophils % 76.8 %; Nucleated Red Blood Cells % 0 %; Platelet Count 302 10^3/cmm (130-400); Red Blood Count 2.74 10^6/uL (4.1-5.3); Red Cell Distribution Width 12.5 % (12.1-15.1); White Blood Count 12.2 10^3/uL (4.0-10.0)
[2021-08-04 03:54] LABS: Alanine Aminotransferase 52 U/L (0-33); Albumin Level 2.2 g/dL (3.5-5.2); Alkaline Phosphatase 84 IU/L (35-105); Anion Gap 14.5 (5-19); Aspartate Amino Transferase 50 U/L (0-32); Blood Urea Nitrogen 41 mg/dL (8-23); Calcium 8.5 mg/dL (8.5-10.5); Carbon Dioxide 23 mmol/L (22-29); Chloride 108 mmol/L (98-107); Globulin 3.1 g/dL (1.3-4.6); Glucose 118 mg/dL (65-115); Osmolality Calculated 303 mOsm/kg (285-295); Potassium 4.5 mmol/L (3.5-5.1); Sodium 141 mmol/L (136-145); Total Bilirubin 0.2 mg/dL (0.15-1.2); Total Protein 5.3 g/dL (6.6-8.7)
[2021-08-04] MEDS: famotidine 20 mg/2 mL INJ IVP ×2 (05:53→18:34)
--- NOTE | 2021-08-04 07:55 | P.PN_ITS ---
Subjective Subjective: Postop day #2 status post left above-knee amputation. Hemovac drain output approximately 60 cc. Vitals/I&O/Wt Last Vital Signs Temp 98.1 F 08/04/21 04:00 Pulse 68 08/04/21 04:00 Resp 16 08/04/21 04:00 BP 113/64 08/04/21 04:00 Pulse Ox 93 08/04/21 04:00 08/03/21 08/04/21 08/04/21 22:59 06:59 14:59 Intake Total 50 / 1020 1007.5 / 2027.5 Output Total 540 / 580 200 / 780 Balance -490 / 440 807.5 / 1247.5 Weight last 48 hrs Weight 131 lb Weight 131 lb Physical Exam Extremity: NARRATIVE EXTREMITY EXAM: Left above-knee amputation incision line is clean, dry, and intact. There is mild ecchymosis. There is no evidence for skin necrosis. Hemovac drain was removed with only modest discomfort. New dressing was applied. Urinary Catheter Management: Perez: Cath Placed During This Visit: yes Reason for Continuing Indwelling Catheter: Required Immobilization for Trauma or Surgery or Anesthesia Urinary Catheter Date of Insertion: 08/02/21 Urinary Catheter Time of Insertion: 01:30 Data : 08/04/21 02:54 08/04/21 02:54 Micro: Microbiology 08/02/21 01:35 Urine Culture - Preliminary Urine Catheterized 08/02/21 08:58 Urine Culture - Preliminary Urine,Clean Catch A&P Assessment and plan (1) Above knee amputation of left lower extremity: Postop day #2 status post left above-knee amputation. Recovering well. After discharge, I would recommend that surgical josephine remain in place for a minimum of 3 to 4 weeks. She may follow-up in my clinic 1 week after discharge for incision inspection, otherwise, senior care care service may contact our office with a report. Status: Acute Attestations Medical Necessity Statement*: Postop day #2 status post left above-knee amputation for ward gangrene of the left leg. Coding Level of Care Code Acute Skin Care Instructor for [employer] Diagnoses Above knee amputation of left lower extremity S78.112A
--- NOTE | 2021-08-04 08:16 | PC.NURSE ---
This RN assisted MD Katie with removal of hemovac on left residual limb. Incision was cleaned with iodine and was redressed with dry gauze, abbie wrap and stockienette to secure. [place] were left in place and well approximated. pt tolerated removal well
[2021-08-04] MEDS: ALPRAZolam 0.5 mg Tablet 0.25 MG PO (08:29)
[2021-08-04] MEDS: aspirin 325 mg Tablet PO (08:29)
[2021-08-04] MEDS: amlodipine 5 mg Tablet PO (08:30)
[2021-08-04] MEDS: ferrous gluconate 324 mg Tablet PO ×2 (08:30→17:56)
[2021-08-04] MEDS: sertraline 100 mg Tablet PO (08:30)
[2021-08-04] MEDS: atorvastatin 40 mg Tablet 20 MG PO (08:30)
[2021-08-04] MEDS: docusate sodium 100 mg Capsule PO ×2 (08:31→17:56)
[2021-08-04] MEDS: morphine 4 mg/mL SDV 1 mL 1 MG IVP (12:24)
--- NOTE | 2021-08-04 13:36 | PC.SOCIAL ---
IMM Update Pg. 2 of IMM updated and reviewed with patient's family who verbalized understanding. Copy provided.
--- NOTE | 2021-08-04 14:05 | PM.PN ---
Subjective Subjective: No complaints overnight. Patient has remained hemodynamically stable and afebrile. Laying comfortably in bed. Family at bedside. Vitals/I&O/Wt Last Vital Signs Temp 98.2 F 08/04/21 12:00 Pulse 61 08/04/21 12:00 Resp 18 08/04/21 12:24 BP 101/61 08/04/21 12:00 Pulse Ox 91 08/04/21 12:00 08/03/21 08/04/21 08/04/21 22:59 06:59 14:59 Intake Total 50 / 1020 1007.5 / 2027.5 400 / 400 Output Total 540 / 580 200 / 780 20 / 20 Balance -490 / 440 807.5 / 1247.5 380 / 380 Weight last 48 hrs Weight 59.421 kg Weight 59.421 kg Physical Exam Narrative: General: No acute distress, AO x 2-3, forgetful, chronically sick appearing, dehydrated, bilateral temporal wasting HEENT: PERRLA, pupils bilaterally equal and reactive Chest: Normal vesicular breath sounds, no added sounds, equal good air entry bilaterally CVS: S1-S2 regular, no murmurs, no tachycardia, no gallops, no rubs Abdomen: Soft, nontender, no organomegaly, bowel sounds present Neuro: No focal deficits, no facial deformity, AO x3, power 5/5 in all limbs Extremity: NARRATIVE EXTREMITY EXAM: Left leg?above-knee amputation. Right leg wound dressed as per surgical recommendations without any soakage Urinary Catheter Management: Perez: Cath Placed During This Visit: yes Reason for Continuing Indwelling Catheter: Required Immobilization for Trauma or Surgery or Anesthesia Urinary Catheter Date of Insertion: 08/02/21 Urinary Catheter Time of Insertion: 01:30 Data : 08/04/21 02:54 08/04/21 02:54 Micro: Microbiology 08/02/21 08:58 Urine Culture - Final Urine,Clean Catch 08/02/21 01:35 Urine Culture - Final Urine Catheterized A&P Assessment and plan (1) Above knee amputation of left lower extremity: Status: Acute (2) Arterial insufficiency with ischemic ulcer: Status: Acute (3) Limb ischemia: Status: Acute (4) Gangrene due to arterial insufficiency: Status: Acute (5) LEON (acute kidney injury): Status: Acute (6) CKD (chronic kidney disease) stage 3, GFR 30-59 ml/min: Status: Acute (7) Dementia: Status: Acute (8) HTN (hypertension): Status: Acute (9) Peripheral vascular disease: Status: Acute Plan Left above-knee amputation: Postoperative day 2. Plan to remove drain tomorrow. YUNIEL Perez. Physical therapy. Ulcer secondary to arterial insufficiency in setting of limb ischemia: Appreciate lower limb arterial duplex. Appreciate cardiology and cardiothoracic surgery recommendations and assistance. Continue with vancomycin and Zosyn as per creatinine clearance. Follow-up blood cultures so far negative. Plan to continue antibiotics for 24 more hours Wound dressing as per recommendation from Dr. Sawant. Postoperative anticoagulation, physical therapy, Occupational Therapy, perioperative antibiotics as per surgical team. Leukocytosis: Most likely secondary to OR yesterday. Resolving. For now continue with antibiotics as above. Continue to monitor for fever or hypotension. Acute kidney injury: Most likely secondary to sepsis along with dehydration. Improving. Fena?1.4%. Consistent with intrinsic. Appreciate urinalysis. Negative for eosinophils, sediments. Continue with normal saline at 75 cc/h. Medical reconciliation done for nephrotoxic drugs. Monitor BMP daily. Hypertension: Goal blood pressure less than 140/90 mmHg. At home patient takes amlodipine 5 mg, lisinopril, Lasix. For now continue with amlodipine. Blood pressure at goal. Hold off on Lasix and lisinopril. Echocardiogram done shows EF of 53%, mild LVH, grade 1 diastolic dysfunction, mildly increased LA size, trace AI, trace TR with PASP of 39 mmHg. Peripheral arterial disease: Continue with home dose of statin. Continue with aspirin 325 mg daily. Appreciate A1c and lipid panel. Continue other chronic home medications. Tramadol p.o. every 4 hourly as needed for pain. Goals of care discussion: Multiple discussions as above. Family agreeable for [id number] amputation for now. DNR/DNI. Postoperative anticoagulation as per Dr. Sawant. Can restart heparin 5000 every 12 from tomorrow. Famotidine for PUD prophylaxis. Continue with mechanical soft cardiac diet. Plan for the day: Continue with IV antibiotics and IV fluids. Monitor for hypotension. Continue with wound dressing. Repeat CBC and CMP tomorrow morning. Plan for discharge tomorrow after removal of the drain. YUNIEL Perez. Physical therapy today. Attestations Medical Necessity Statement*: Requires further hospitalization for postoperative care of post left above-knee amputation for ischemic limb leading to dry gangrene, acute kidney injury Time Spent in Patient Care: Greater than 35 minutes Coding Level of Care Code Acute Industrial Machine System Technician for Chg Fwd Diagnoses Above knee amputation of left lower extremity S78.112A Arterial insufficiency with ischemic ulcer I77.1; L98.499 Limb ischemia I99.8 Gangrene due to arterial insufficiency I77.1; I96 LEON (acute kidney injury) N17.9 CKD (chronic kidney disease) stage 3, GFR 30-59 ml/min N18.30 Dementia F03.90 HTN (hypertension) I10 Peripheral vascular disease I73.9
[2021-08-04] MEDS: vancomycin 1,000 MG in sodium chloride 0.9% 250 ML 250 MG IV (18:31)
--- NOTE | 2021-08-04 18:48 | PC.NURSE ---
WHile doing a dressing change to the patient's righ tleg, nurse observed foul odor. Nurse alerted Dr holland and received an order for a wound culture. Nurse took would culture of anterior leg wound, and posterior leg wound. Sent to lab.
--- NOTE | 2021-08-04 19:31 | PC.NURSE ---
SHift SUmmary: Patient rested in bed throughout most of the day. Physical therapy did have her standing at bedside briefly. While doing a dressing change to the right leg, nurse observed foul odor and sent wound of both anterior and posterior stasis ulcers. Patient is confused and alert to person and occasionally time, but not situation or place. Family was at bedside most of the day and were unable to tell me what her baseline is. Patient has dementia.
--- NOTE | 2021-08-04 19:35 | PC.NURSE ---
WHile sitting patient up to the bedside with PT, the patient's dressing to the left leg came off. Nurse Wound site was unremarkable. No signs of infection. No drainage. Nurse cleaned incision side with chlorahexedine swab, redressed site with kerlix and abbie bandage.
[2021-08-04] MEDS: OLANZapine 5 mg TABLET 2.5 MG PO (20:36)
[2021-08-05] VITALS (7 sets, daily range): BP systolic 153–175; BP diastolic 68–75; PULSE 67–74; RESP 16–18; TEMP 36.7–37.1; O2SAT 91–93
[2021-08-05] MEDS: morphine 4 mg/mL SDV 1 mL 1 MG IVP ×3 (00:57→08:15)
[2021-08-05] MEDS: piperacillin-tazobactam 3.375 GM in sodium chloride 0.9% (plus) 50 ML IV (02:08)
[2021-08-05] MEDS: famotidine 20 mg/2 mL INJ IVP (06:01)
[2021-08-05] MEDS: amlodipine 5 mg Tablet PO (08:21)
[2021-08-05] MEDS: aspirin 325 mg Tablet PO (08:22)
[2021-08-05] MEDS: atorvastatin 40 mg Tablet 20 MG PO (08:22)
[2021-08-05] MEDS: ALPRAZolam 0.5 mg Tablet 0.25 MG PO (08:22)
[2021-08-05] MEDS: sertraline 100 mg Tablet PO (08:23)
[2021-08-05] MEDS: docusate sodium 100 mg Capsule PO (08:23)
[2021-08-05] MEDS: ferrous gluconate 324 mg Tablet PO (08:28)
[2021-08-05] MEDS: sodium chloride 0.9% 1,000 ML 75 ML IV (10:38)
[2021-08-05 10:46] LABS: Basophils # 0.1 10^3/uL (0.0-0.1); Basophils % 0.4 %; Eosinophils # 0.2 10^3/uL (0.0-0.8); Eosinophils % 1.6 %; Hemoglobin 9.1 g/dL (11.5-15.3); Mean Corpuscular HGB Conc 30.3 g/dL (30.0-36.0); Mean Corpuscular Hemoglobin 29.3 pg (28.0-34.0); Mean Corpuscular Volume 96.5 fl (81-99); Mean Platelet Volume 10.6 fL (7.4-10.4); Monocytes # 0.7 10^3/uL (0.2-0.9); Monocytes % 6.1 %; Neutrophils # 8.62 10^3/uL (1.8-7.7); Neutrophils % 74.3 %; Nucleated Red Blood Cells % 0 %; Platelet Count 345 10^3/cmm (130-400); Red Blood Count 3.11 10^6/uL (4.1-5.3); Red Cell Distribution Width 12.3 % (12.1-15.1); White Blood Count 11.6 10^3/uL (4.0-10.0)
[2021-08-05 11:12] LABS: Alanine Aminotransferase 47 U/L (0-33); Albumin Level 2.4 g/dL (3.5-5.2); Alkaline Phosphatase 83 IU/L (35-105); Anion Gap 13.2 (5-19); Aspartate Amino Transferase 38 U/L (0-32); Blood Urea Nitrogen 26 mg/dL (8-23); Calcium 7.8 mg/dL (8.5-10.5); Carbon Dioxide 23 mmol/L (22-29); Chloride 109 mmol/L (98-107); Globulin 3.2 g/dL (1.3-4.6); Glucose 92 mg/dL (65-115); Osmolality Calculated 296 mOsm/kg (285-295); Potassium 4.2 mmol/L (3.5-5.1); Sodium 141 mmol/L (136-145); Total Bilirubin 0.2 mg/dL (0.15-1.2); Total Protein 5.6 g/dL (6.6-8.7)
--- NOTE | 2021-08-05 11:42 | PM.DCS ---
Discharge Providers Date of Admission: 08/01/21 17:55 Date of Discharge: August 05, 2021 Attending Provider at Admission: Arnold Powell MD Attending Provider at Discharge: Arnold Powell MD Diagnoses at Discharge Discharge Diagnosis (1) Above knee amputation of left lower extremity: Status: Acute (2) Arterial insufficiency with ischemic ulcer: Status: Acute (3) Limb ischemia: Status: Acute (4) Gangrene due to arterial insufficiency: Status: Acute (5) LEON (acute kidney injury): Status: Acute (6) CKD (chronic kidney disease) stage 3, GFR 30-59 ml/min: Status: Acute (7) Dementia: Status: Acute (8) HTN (hypertension): Status: Acute (9) Peripheral vascular disease: Status: Acute Reason for Visit Reason for Visit: FOOT PAIN Hospital Course Hospital Course Mami Vincent is a 81 year old female who is a [facility] [facility] resident secondary to advanced dementia with past medical history of hypertension, peripheral arterial disease, Alzheimer's who presented to the ER today via EMS from [facility] because of continuous foul-smelling discharge from chronic ulcers in her leg along with discoloration of her toes in the left leg. As per chart review patient was in the ER in last week of June with concerns of bilateral lower extremity swelling and pain as well.? At that time patient has been having the complaint for the last 3 weeks. Patient is unable to provide me with any further history other than the above.? She denies of having any diarrhea, cough, difficulty in breathing, dizziness, dysuria.? Seems forgetful. In the ER patient was found to be mildly febrile with fever up to 99.3 Fahrenheit. Blood work showed a white count of 16.3, hemoglobin of 12.7, sodium of 146, creatinine of 1.6, AST/ALT of 112/118, alkaline phosphatase of 135.? Patient underwent arterial duplex which was verbally reported as severe arterial disease(formal report not present in the chart). Patient did have an ankle-brachial index done on 07/22 which showed abnormal ARELI suggesting mild peripheral arterial disease on the right side and moderate peripheral artery disease on the left side. Patient admitted for further evaluation and management. Cardiothoracic surgery and cardiology were consulted. After multiple goals of care discussion with the family, multiple treatment plans as patient had already started developing dry to wet gangrene on the foot with cyanosis it was decided the safest bet to prevent sepsis, septic shock, possible contrast-induced nephropathy, renal failure leading to dialysis would be to go ahead with amputation. Patient underwent left [id number] amputation on 08/02. She tolerated the procedure well. During the hospitalization stay patient has been on broad-spectrum antibiotics. Her blood culture has so far remain negative. Dressings have been done as per recommendation from surgical's team. Patient did have episode of LEON postoperatively which has resolved with IV hydration. She has been discharged in imminently stable condition with advised to follow-up with Dr. Sawant from cardiothoracic surgery in 1 week for wound inspection and wound care. She is advised to take Augmentin and Levaquin for next 1 week. Perez catheter has been removed prior to discharge. Physical Exam Narrative: General: No acute distress, AO x 2-3, forgetful, chronically sick appearing, dehydrated, bilateral temporal wasting HEENT: PERRLA, pupils bilaterally equal and reactive Chest: Normal vesicular breath sounds, no added sounds, equal good air entry bilaterally CVS: S1-S2 regular, no murmurs, no tachycardia, no gallops, no rubs Abdomen: Soft, nontender, no organomegaly, bowel sounds present Neuro: No focal deficits, no facial deformity, AO x3, power 5/5 in all limbs Extremity: NARRATIVE EXTREMITY EXAM: Left leg?above-knee amputation. Right leg wound dressed as per surgical recommendations without any soakage Urinary Catheter Management: Perez: Cath Placed During This Visit: yes Reason for Continuing Indwelling Catheter: Required Immobilization for Trauma or Surgery or Anesthesia Urinary Catheter Date of Insertion: 08/02/21 Urinary Catheter Time of Insertion: 01:30 Discharge Data Studies Completed and Pending Completed Studies During Hospitalization Category Date Time Status XR chest 1V portable [id number] Stat Exams 08/01/21 17:40 [place] [id number] Stat Ultrasound 08/01/21 16:58 [place] [id number] Urgent Ultrasound 08/01/21 18:42 Completed CV. echo complete* [id number] Routine Ultrasound 08/01/21 18:42 Completed US renal BI* [id number] Routine Ultrasound 08/03/21 09:19 Completed Pending at discharge Category Date Time Status Blood Culture Stat Lab 08/01/21 16:55 Results COVID OZH [Coronavirus PCR] Routine Lab 08/05/21 10:10 Received COVID [SARS Covid-2 Antigen] Routine Lab 08/05/21 10:10 Stop Req RED BLOOD CELLS [Leukocyte Reduced RBC] Routine Lab 08/02/21 09:30 Results Type and Screen Routine Lab 08/02/21 09:30 Results Wound Culture Routine Lab 08/04/21 18:40 Received Wound Culture Routine Lab 08/04/21 18:40 Received Pathology: Surgical [PTH] Routine Pth 08/02/21 16:07 Received Radiology Impressions Chest X-Ray 08/01/21 17:40 IMPRESSION: 1. Left base atelectasis with possible small pleural effusion. Venous Duplex 08/01/21 18:42 IMPRESSION: 1. Suspect probable occluding thrombus in the left posterior tibial vein, see above discussion. 2. Possible chronic thrombus in the mid right superficial femoral vein, details above. 3. No other evidence for the deep venous thrombosis in either lower extremity at this time. 4. Limitations as discussed above. Renal Ultrasound 08/03/21 09:19 IMPRESSION: 1. Mild atrophy and thinning of the renal cortex. Mild progression of atrophy since 2014. 2. Mild atherosclerosis aorta. 3. No hydronephrosis. Laboratory Results WBC 11.6 10^3/uL (4.0-10.0) H 08/05/21 10:26 RBC 3.11 10^6/uL (4.1-5.3) L 08/05/21 10:26 Hgb 9.1 g/dL (11.5-15.3) L 08/05/21 10:26 Hct 30.0 % (37.0-47.0) L 08/05/21 10:26 MCV 96.5 fl (81-99) 08/05/21 10:26 MCH 29.3 pg (28.0-34.0) 08/05/21 10:26 MCHC 30.3 g/dL (30.0-36.0) 08/05/21 10:26 RDW 12.3 % (12.1-15.1) 08/05/21 10:26 Plt Count 345 10^3/cmm (130-400) 08/05/21 10:26 MPV 10.6 fL (7.4-10.4) H 08/05/21 10:26 Neut % (Auto) 74.3 % 08/05/21 10: Lymph % (Auto) 17.0 % 08/05/21 10: [place] % (Auto) 6.1 % 08/05/21 10: Eos % (Auto) 1.6 % 08/05/21 10: Baso % (Auto) 0.4 % 08/05/21 10:26 Neut # (Auto) 8.62 10^3/uL (1.8-7.7) H 08/05/21 10: Lymph # (Auto) 2.0 10^3/uL (0.8-4.8) 08/05/21 10: [place] # (Auto) 0.7 10^3/uL (0.2-0.9) 08/05/21 10: Eos # (Auto) 0.2 10^3/uL (0.0-0.8) 08/05/21 10: Baso # (Auto) 0.1 10^3/uL (0.0-0.1) 08/05/21 10: Nucleated RBC % (auto) 0 % 08/05/21 10: Nucleated RBCs # 0.0 /100WBC 08/05/21 10: PT 14.20 SECONDS (12.1-14.9) 08/01/21 17:00 INR 1.07 (0.8-1.2) 08/01/21 17:00 APTT 56.8 SECONDS (23.9-36.7) H 08/02/21 08:33 Sodium 141 mmol/L (136-145) 08/05/21 10:26 Potassium 4.2 mmol/L (3.5-5.1) 08/05/21 10:26 Chloride 109 mmol/L (98-107) H 08/05/21 10:26 Carbon Dioxide 23 mmol/L (22-29) 08/05/21 10:26 Anion Gap 13.2 (5-19) 08/05/21 10:26 BUN 26 mg/dL (8-23) H 08/05/21 10:26 Creatinine 1.4 mg/dL (0.5-0.9) H 08/05/21 10:26 GFR Calculation Not Reportable 08/05/21 10:26 Glucose 92 mg/dL (65-115) 08/05/21 10:26 Estimat Average Glucose 126 08/02/21 01:00 Hemoglobin A1c 6.0 % (4.0-6.0) 08/02/21 01:00 Calculated Osmolality 296 mOsm/kg (285-295) H 08/05/21 10:26 Lactic Acid 0.5 mmol/L (0.5-2.2) 08/01/21 21:43 Calcium 7.8 mg/dL (8.5-10.5) L 08/05/21 10:26 Phosphorus 3.3 mg/dL (2.5-4.5) 08/02/21 01:00 Magnesium 1.9 mg/dL (1.7-2.3) 08/02/21 01:00 Iron 25 ug/dL (37-145) L 08/01/21 17:00 TIBC 177 mcg/dl 08/01/21 17:00 % Saturation 14.1 % (20-50) L 08/01/21 17:00 Unsat Iron Binding 152 ug/dL (112-347) 08/01/21 17:00 Total Bilirubin 0.2 mg/dL (0.15-1.2) 08/05/21 10:26 AST 38 U/L (0-32) H 08/05/21 10:26 ALT 47 U/L (0-33) H 08/05/21 10:26 Alkaline Phosphatase 83 IU/L (35-105) 08/05/21 10:26 C-Reactive Protein 128.1 mg/L (0.0-4.9) H 08/01/21 17:00 Total Protein 5.6 g/dL (6.6-8.7) L 08/05/21 10:26 Albumin 2.4 g/dL (3.5-5.2) L 08/05/21 10:26 Globulin 3.2 g/dL (1.3-4.6) 08/05/21 10:26 Triglycerides 120 mg/dL (0-150) 08/02/21 01:00 Cholesterol 128 mg/dL (0-200) 08/02/21 01:00 LDL Cholesterol, Calc 66 mg/dL (50-129) 08/02/21 01:00 Total VLDL Cholesterol 24 mg/dL (0-30) 08/02/21 01:00 HDL Cholesterol 38 mg/dL (60-100) L 08/02/21 01:00 Cholesterol/HDL Ratio 3.37 mg/dL (0.0-4.40) 08/02/21 01:00 Procalcitonin 0.35 ng/mL (0-0.5) 08/01/21 17:00 TSH 4.79 uIU/mL (0.27-4.20) H 08/01/21 17:00 Urine Color Yellow (Yellow) 08/02/21 08:58 Urine Appearance Sl hazy (CLEAR) 08/02/21 08:58 Urine pH 5 (5-7) 08/02/21 08:58 Ur Specific [place] 1.015 (1.005-1.030) 08/02/21 08:58 Urine Protein 1+ (Negative) H 08/02/21 08:58 Urine Glucose (UA) Norm (Normal) 08/02/21 08:58 Urine Ketones Negative (Negative) 08/02/21 08:58 Urine Blood 3+ (Negative) H 08/02/21 08:58 Urine Nitrate Negative (Negative) 08/02/21 08:58 Urine Bilirubin Neg (Negative) 08/02/21 08:58 Urine Urobilinogen Norm mg/dL (Negative) 08/02/21 08:58 Ur Leukocyte Esterase Negative (Negative) 08/02/21 08:58 Urine RBC 50-80 /hpf (0-2) H 08/02/21 08:58 Urine WBC None /hpf (0-5) 08/02/21 08:58 Ur Eosinophil Smear 0 (0-0) 08/02/21 01:35 Ur Squamous Epith Cells 0-4 /hpf (0-5) H 08/02/21 08:58 Amorphous Sediment Not Reportable 08/02/21 08:58 Urine Bacteria Trace /hpf (NONE) 08/02/21 08:58 Urine Eosinophils No eosinophils seen 08/02/21 01:35 Ur Random Sodium 70 mmol/L 08/02/21 01:35 Ur Random Potassium 33 mmol/L 08/02/21 01:35 Ur Random Chloride 50 mmol/L 08/02/21 01:35 Urine Creatinine 57 mg/dL (28-217) 08/02/21 01:35 Vancomycin Trough 12.0 ug/mL (10-15) 08/04/21 16:33 Random Vancomycin 13.4 ug/mL (20.0-40.0) L 08/02/21 01:00 Blood Type B Negative 08/02/21 09:30 Rho(D) Type Negative 08/02/21 09:30 Antibody Screen Negative 08/02/21 09:30 Crossmatch See Detail 08/02/21 09:30 Vitals Last Vital Signs Temp 98.7 F 08/05/21 08:00 Pulse 73 08/05/21 08:00 Resp 16 08/05/21 08:15 BP 175/70 08/05/21 08:00 Pulse Ox 93 08/05/21 08:00 Discharge Plan Discharge Patient Disposition: Xfer SNF Condition: Stable Prescriptions: New ferrous gluconate 324 mg (37.5 mg iron) Tablet 324 mg PO BIDWM Qty: 60 0RF Augmentin 875-125 mg tablet 1 tab PO BID 7 Days Qty: 14 0RF levofloxacin 500 mg tablet 500 mg PO Q48H 7 Days Qty: 4 0RF Continued Tylenol 325 mg Tablet 325 mg PO Q4H PRN (Reason: Pain) 0RF acetaminophen 650 mg Suppository 650 mg MI Q6H PRN (Reason: Pain) 0RF atorvastatin 10 mg Tablet 10 mg PO DAILY 0RF aspirin 325 mg Tablet 325 mg PO DAILY 0RF sertraline 100 mg Tablet 100 mg PO DAILY 0RF olanzapine 2.5 mg Tablet 2.5 mg PO DAILY 0RF tramadol 50 mg Tablet 50 mg PO Q4H PRN (Reason: Pain) 0RF alprazolam 0.25 mg Tablet 0.25 mg PO DAILY 0RF Mower Nasal 0.65 % Aerosol,[place] 1 spray INTRANASAL Q6H PRN (Reason: Nasal Congestion) 0RF Saccharomyces boulardii 250 mg Capsule 250 mg PO DAILY 0RF fentanyl 12 mcg/hr Patch 72 Hour 1 patch TRANSDERMAL Q72H 0RF diclofenac sodium 1 % Gel 2 g TOPICAL TID PRN (Reason: Pain) 0RF Rx Instructions: apply to single elbow, wrist or hand; for hand includes palm/fingers/back of hand Eucerin Cream 1 applic TOPICAL DAILY PRN (Reason: Dry Skin) 0RF Changed amlodipine 5 mg Tablet 10 mg PO DAILY Qty: 0 0RF Lasix 20 mg Tablet 20 mg PO DAILY PRN (Reason: swelling) Qty: 0 0RF Discontinued cephalexin 500 mg Capsule 500 mg PO Q12H 0RF lisinopril 10 mg Tablet 10 mg PO DAILY 0RF potassium chloride 20 mEq Tablet Extended Release 20 meq PO DAILY 0RF Discharge Orders: Discharge Order (Routine); Ordered 08/05/21 Ordered By: Arnold Powell Referrals: [facility] [Outside] Karri Sawant MD [Physician] - 1 week (Please call [facility] [place] and schedule an appointment to be seen by Dr. Sawant either this week.) Discharge Diet: Soft Mechanical Discharge Activity: Resume usual activity and Increase activity as tolerated Patient Instructions: Amoxicillin/Clavulanate Potassium (By mouth), Levofloxacin (By mouth), Opioid Safety Activity Restrictions/Additional Instructions: Please follow-up with Dr. Sawant for wound care and inspection of the stump in 1 week. Wound care to be continued as per Dr. Sawant. Take Augmentin Levaquin which are the antibiotics for next 7 days. Augmentin daily be taken twice daily, Levaquin is to be taken every 2 days. Lasix has been changed to as needed for swelling. Lisinopril has been withheld. Amlodipine has been increased to 10 mg daily. Dressing to right leg saline wet to dry dressing daily. Clean left AKA incision with betadine and covere with island dressing and wrap with abbie wrap. Discharge Attestations Time Spent in Discharge Care*: greater than 30 min Status at Discharge: Cognitive status at discharge: moderately impaired cognition, Behavioral status at discharge: cooperative, Functional status at discharge: other assisted ambulation, Overall status at discharge: patient has a new baseline Quality Metrics Clinical Quality Measures [ No reported AMI, CVA or VTE this stay] Coding Level of Care Code Acute [facility] note Diagnoses Above knee amputation of left lower extremity S78.112A Arterial insufficiency with ischemic ulcer I77.1; L98.499 Limb ischemia I99.8 Gangrene due to arterial insufficiency I77.1; I96 LEON (acute kidney injury) N17.9 CKD (chronic kidney disease) stage 3, GFR 30-59 ml/min N18.30 Dementia F03.90 HTN (hypertension) I10 Peripheral vascular disease I73.9
[2021-08-05 12:42] LABS: Adenovirus Not Detected (NOT DETECT); Chlamydia Pneumoniae Not Detected (NOT DETECT); Coronavirus 229E,HKU1,NL63,OC4 Not Detected (NOT DETECT); Human Metapneumovirus Not Detected (NOT DETECT); Human Rhinovirus/Enterovirus Not Detected (NOT DETECT); Influenza A Not Detected (NOT DETECT); Influenza A H1 Not Detected (NOT DETECT); Influenza A H1-2009 Not Detected (NOT DETECT); Influenza A H3 Not Detected (NOT DETECT); Influenza B Not Detected (NOT DETECT); Mycoplasma Pneumoniae Not Detected (NOT DETECT); Parainfluenza Virus Type 1 Not Detected (NOT DETECT); Parainfluenza Virus Type 2 Not Detected (NOT DETECT); Parainfluenza Virus Type 3 Not Detected (NOT DETECT); Parainfluenza Virus Type 4 Not Detected (NOT DETECT); Respiratory Syncytial Virus A Not Detected (NOT DETECT); Respiratory Syncytial Virus B Not Detected (NOT DETECT); SARS-COV-2 Not Detected (NOT DETECT)
--- NOTE | 2021-08-05 13:20 | PC.NURSE ---
this nurse attempted to contact [facility] 4 times to call report
--- NOTE | 2021-08-05 13:21 | PC.NURSE ---
EMS here to transport patient to [facility], unable to contact [facility] or family. patient KELVIN at this time
== END 2021-08-05 13:26 | disposition skilled nursing facility (03) | DRG 240 ==
LOC: ER 17:36 → MEDSURG 18:57
PROVIDERS: Student in an Organized Health Care Education/Training Program; Thoracic Surgery (Cardiothoracic Vascular Surgery); Admitting Provider Student in an Organized Health Care Education/Training Program; Emergency Provider Family Medicine; Visit Provider Student in an Organized Health Care Education/Training Program
PROC: 0Y6D0Z2 Detachment at Left Upper Leg, Mid, Open Approach (ICD-10-PCS; CPT 27590; 2021-08-02 14:45)
DX: I70.262 Atherosclerosis of native arteries of extremities with gangrene, left leg (principal); F02.81 Dementia in other diseases classified elsewhere, unspecified severity, with behavioral disturbance; N17.9 Acute kidney failure, unspecified; I77.1 Stricture of artery; N18.30 Chronic kidney disease, stage 3 unspecified; G30.9 Alzheimer's disease, unspecified; Z66 Do not resuscitate; Z79.82 Long term (current) use of aspirin; I12.9 Hypertensive chronic kidney disease with stage 1 through stage 4 chronic kidney disease, or unspecified chronic kidney disease
CPT/HCPCS: 36415; 51702; 64445; 64447; 71045; 76770; 76942; 80053; 80061; 80202; 81001; 82436; 82570; 83036; 83540; 83550; 83605; 83735; 84100; 84133; 84145; 84300; 84443; 85025; 85610; 85730; 85999; 86140; 86850; 86900; 86920; 87040; 87070; 87077; 87086; 87186; 87635; 87641; 88307; 88311; 93005; 93306; 93926; 93970; 96365; 96366; 96367; 96375; 97162; 97530; 99285; J1644; J2270; J2370; J2543; J2704; J3010; J3370; J3490; J7030; J7050

== ENCOUNTER 2021-08-14 09:30 | Outpatient (CLI) | payer MEDICARE, MEDICAID, SELFPAY | END 2021-08-14 09:31 | disposition home or self-care (01) | LOC: WOUND 09:31 | PROVIDERS: Visit Provider Thoracic Surgery (Cardiothoracic Vascular Surgery) | DX: I87.2 Venous insufficiency (chronic) (peripheral) (principal); L97.812 Non-pressure chronic ulcer of other part of right lower leg with fat layer exposed; L89.610 Pressure ulcer of right heel, unstageable; I96 Gangrene, not elsewhere classified | CPT/HCPCS: 97597; 99213 ==

== ENCOUNTER → 2021-08-21 09:34 | Outpatient (BNVA) | payer MEDICARE, MEDICAID, SELFPAY | PROVIDERS: Visit Provider Nurse Practitioner Family | DX: I73.9 Peripheral vascular disease, unspecified (principal); L97.812 Non-pressure chronic ulcer of other part of right lower leg with fat layer exposed; L89.610 Pressure ulcer of right heel, unstageable | CPT/HCPCS: 11042 ==

== ENCOUNTER → 2021-08-28 08:44 | Outpatient (BNVA) | payer MEDICARE, MEDICAID, SELFPAY | PROVIDERS: Visit Provider Thoracic Surgery (Cardiothoracic Vascular Surgery) | DX: I73.9 Peripheral vascular disease, unspecified (principal); L97.812 Non-pressure chronic ulcer of other part of right lower leg with fat layer exposed; L89.610 Pressure ulcer of right heel, unstageable; I96 Gangrene, not elsewhere classified | CPT/HCPCS: 97597 ==

== ENCOUNTER → 2021-09-04 08:35 | Outpatient (BNVA) | payer MEDICARE, MEDICAID, SELFPAY | PROVIDERS: Visit Provider Thoracic Surgery (Cardiothoracic Vascular Surgery) | DX: I73.9 Peripheral vascular disease, unspecified (principal); L97.812 Non-pressure chronic ulcer of other part of right lower leg with fat layer exposed; L97.419 Non-pressure chronic ulcer of right heel and midfoot with unspecified severity | CPT/HCPCS: 11042; 87070; 97597 ==

== ENCOUNTER → 2021-09-13 15:51 | Outpatient (BNVA) | payer MEDICARE, MEDICAID, SELFPAY | PROVIDERS: Visit Provider Nurse Practitioner Family | DX: I73.9 Peripheral vascular disease, unspecified (principal); L97.812 Non-pressure chronic ulcer of other part of right lower leg with fat layer exposed; L89.610 Pressure ulcer of right heel, unstageable; I96 Gangrene, not elsewhere classified; T87.81 Dehiscence of amputation stump | CPT/HCPCS: 99213 ==

== ENCOUNTER → 2021-09-20 14:49 | Outpatient (BNVA) | payer MEDICARE, MEDICAID, SELFPAY | PROVIDERS: Visit Provider Nurse Practitioner Family | DX: I73.9 Peripheral vascular disease, unspecified (principal); L97.812 Non-pressure chronic ulcer of other part of right lower leg with fat layer exposed; L89.610 Pressure ulcer of right heel, unstageable; I96 Gangrene, not elsewhere classified; T87.81 Dehiscence of amputation stump | CPT/HCPCS: 11042 ==

== ENCOUNTER → 2021-09-27 08:21 | Outpatient (BNVA) | payer MEDICARE, MEDICAID, SELFPAY | PROVIDERS: Visit Provider Thoracic Surgery (Cardiothoracic Vascular Surgery) | DX: I73.9 Peripheral vascular disease, unspecified (principal); L97.812 Non-pressure chronic ulcer of other part of right lower leg with fat layer exposed; L89.610 Pressure ulcer of right heel, unstageable; T87.81 Dehiscence of amputation stump; I96 Gangrene, not elsewhere classified | CPT/HCPCS: 11042; 97597 ==

== ENCOUNTER → 2021-10-04 10:44 | Outpatient (BNVA) | payer MEDICARE, MEDICAID, SELFPAY | PROVIDERS: Visit Provider Thoracic Surgery (Cardiothoracic Vascular Surgery) | DX: I73.9 Peripheral vascular disease, unspecified (principal); L97.812 Non-pressure chronic ulcer of other part of right lower leg with fat layer exposed; L97.822 Non-pressure chronic ulcer of other part of left lower leg with fat layer exposed; L89.610 Pressure ulcer of right heel, unstageable; T87.81 Dehiscence of amputation stump | CPT/HCPCS: 11042; 97597; A6021; A6250 ==

== ENCOUNTER → 2021-10-11 09:59 | Outpatient (BNVA) | payer MEDICARE, MEDICAID, SELFPAY | PROVIDERS: Visit Provider Thoracic Surgery (Cardiothoracic Vascular Surgery) | DX: I73.9 Peripheral vascular disease, unspecified (principal); L97.812 Non-pressure chronic ulcer of other part of right lower leg with fat layer exposed; L89.610 Pressure ulcer of right heel, unstageable; Z09 Encounter for follow-up examination after completed treatment for conditions other than malignant neoplasm; L89.893 Pressure ulcer of other site, stage 3 | CPT/HCPCS: 11042 ==

== ENCOUNTER → 2021-10-18 10:24 | Outpatient (BNVA) | payer MEDICARE, MEDICAID, SELFPAY | PROVIDERS: Visit Provider Thoracic Surgery (Cardiothoracic Vascular Surgery) | DX: I96 Gangrene, not elsewhere classified (principal); L89.610 Pressure ulcer of right heel, unstageable; L89.893 Pressure ulcer of other site, stage 3 | CPT/HCPCS: 11042 ==

== ENCOUNTER → 2021-10-30 14:51 | Outpatient (BNVA) | payer MEDICARE, MEDICAID, SELFPAY | PROVIDERS: Visit Provider Thoracic Surgery (Cardiothoracic Vascular Surgery) | DX: I96 Gangrene, not elsewhere classified (principal); L89.610 Pressure ulcer of right heel, unstageable; L89.893 Pressure ulcer of other site, stage 3 | CPT/HCPCS: 99212 ==

== ENCOUNTER → 2021-11-06 10:37 | Outpatient (BNVA) | payer MEDICARE, MEDICAID, SELFPAY | PROVIDERS: Visit Provider Thoracic Surgery (Cardiothoracic Vascular Surgery) | DX: I96 Gangrene, not elsewhere classified (principal); L89.610 Pressure ulcer of right heel, unstageable; L89.893 Pressure ulcer of other site, stage 3 | CPT/HCPCS: 11043 ==

== ENCOUNTER 2021-11-14 09:18 | Outpatient (CLI) | payer MEDICARE, MEDICAID, SELFPAY ==
--- NOTE | 2021-11-14 10:00 | CT_ITS ---
WS: [id number] CT ANGIOGRAPHY OF THE ABDOMINAL AORTA WITH RUNOFF TO THE ANKLES HISTORY: I77.1 - Stricture of artery, prior [id number] LEFT amputation. TECHNIQUE: Arterial injection is performed during imaging to evaluate the aorta and runoff vessels to the ankles. MIP and volume rendering imaging has also been performed. All images are reviewed. All C T scans at [facility] use at least one of these dose optimization techniques: automated exposu re control; mA and/or kV adjustment per patient size (includes targeted exams where dose is matched t o clinical indication); or iterative reconstruction. Contrast: Visipaque 320; 75 mL IV. DLP: 697.96 mGy.cm COMPARISON: 03/25/2014 Abdominal aorta: Scattered plaque and intimal thickening. No aneurysm. Lumen remains greater than 10 mm throughout. Origin of the celiac axis and SMA are patent. There is a small amount of plaque and mi ld stenosis but no occlusions. ROMANA is still patent. RIGHT lower extremity arterial system: Heavy calcified plaque continues into the RIGHT common iliac a rtery. 50% stenosis at the origin of the RIGHT common iliac artery. There is a small ulcerated plaque in the mid to distal common iliac artery. The ulceration measures 5 mm. Scattered mild stenosis. Int ernal and external iliac arteries are patent. More advanced disease continue into the internal iliac artery with areas of high-grade or complete stenosis. Multilevel areas of stenosis in the external il iac artery approaching 50-60%. Mild progression of disease since 2013. Dense calcified plaque proxima l SFA. There is complete occlusion of the SFA as seen on the prior study. Deep profundas intact. Mult ifocal areas of plaque and stenoses within the deep profunda. Attempt at reconstitution of the SFA at Neftali's canal. Continued extensive calcification with multifocal areas of occlusion and heavy plaqu e through the popliteal artery. Significant artifact below the knee. There is contrast in the vessels below the knee but areas of stenosis cannot be excluded due to significant motion artifact. LEFT lower extremity arterial system: Heavy calcified plaque with high-grade stenosis involving the o rigin common iliac artery. Stenosis of 70%. Heavy calcified plaque extends through the common iliac a rtery. Areas of occlusion and high-grade stenosis in the internal and external iliac arteries. Multif ocal areas of stenosis through the femoral artery. Occluded LEFT SFA. Patient has an ydtqz-[id number]-fcot a mputation. Bilateral subsegmental atelectasis at the lung bases. Small hiatal hernia. Liver, spleen, gallbladder and pancreas are unremarkable and age-appropriate. RIGHT hepatic hemangioma. LEFT adrenal hyperplasi a. Cortical atrophy and thinning of each kidney with no obstruction. No solid mass. No ascites or oh nopathy. No GI tract obstruction. Mild presacral soft tissue thickening. There is mild soft tissue th ickening involving the rectum. Bones are osteopenic. CT/CT angio abd aorta runof [id number] IMPRESSION: 1. Patient is status post [id number]-[id number]-qfpr LEFT lower extremity amputation. 2. Progression of atherosclerosis and areas of stenosis since the prior study from 2013. 3. Occluded proximal RIGHT SFA. Similar to the prior examination. 4. 50% stenosis origin of the RIGHT common iliac artery. 5. Small ulcerated plaque mid to distal RIGHT common iliac artery measures 5 m m. 6. Bilateral occlusions and stenoses in the internal iliac arteries. 7. 70% stenosis origin LEFT common iliac artery. 8. Attempt at reconstitution in the distal RIGHT SFA are very limited. RIGHT p opliteal artery occluded. Limited three-vessel runoff to the RIGHT ankle. 9. Mild presacral soft tissue thickening with mild rectal wall thickening. No mass identified.
[2021-11-14 10:08] LABS: Blood Urea Nitrogen 26 mg/dL (8-23)
[2021-11-14] MEDS: iodixanol 320 mg/mL 100mL Btl IV (10:20)
== END 2021-11-14 09:19 | disposition home or self-care (01) ==
PROVIDERS: Visit Provider Thoracic Surgery (Cardiothoracic Vascular Surgery)
DX: I77.1 Stricture of artery (principal); L98.499 Non-pressure chronic ulcer of skin of other sites with unspecified severity; I74.5 Embolism and thrombosis of iliac artery; J98.11 Atelectasis; K44.9 Diaphragmatic hernia without obstruction or gangrene; Z89.612 Acquired absence of left leg above knee
CPT/HCPCS: 75635; 82565; 84520

== ENCOUNTER → 2021-11-22 10:20 | Outpatient (BNVA) | payer MEDICARE, MEDICAID, SELFPAY | PROVIDERS: Visit Provider Thoracic Surgery (Cardiothoracic Vascular Surgery) | DX: I96 Gangrene, not elsewhere classified (principal); L89.610 Pressure ulcer of right heel, unstageable; L89.893 Pressure ulcer of other site, stage 3; L89.892 Pressure ulcer of other site, stage 2 | CPT/HCPCS: 11042; 11043; 97597; A6212 ==

== ENCOUNTER → 2021-12-04 13:39 | Outpatient (BNVA) | payer MEDICARE, MEDICAID, SELFPAY | PROVIDERS: Visit Provider Thoracic Surgery (Cardiothoracic Vascular Surgery) | DX: I96 Gangrene, not elsewhere classified (principal); L89.610 Pressure ulcer of right heel, unstageable; L89.893 Pressure ulcer of other site, stage 3; L89.892 Pressure ulcer of other site, stage 2 | CPT/HCPCS: 11042; A6212; A6213 ==

== ENCOUNTER → 2021-12-13 15:36 | Outpatient (BNVA) | payer MEDICARE, MEDICAID, SELFPAY | PROVIDERS: Visit Provider Thoracic Surgery (Cardiothoracic Vascular Surgery) | DX: I96 Gangrene, not elsewhere classified (principal); L89.310 Pressure ulcer of right buttock, unstageable; L89.893 Pressure ulcer of other site, stage 3; L89.892 Pressure ulcer of other site, stage 2 | CPT/HCPCS: 11042; 11043 ==

== ENCOUNTER 2021-12-17 18:03 | Emergency (ER) | payer MEDICARE, MEDICAID, SELFPAY ==
--- NOTE | 2021-12-17 18:08 | XRR_ITS ---
PROCEDURE INFORMATION: Exam: XR Right Foot Exam date and time: 12/17/2021 6:35 PM Age: 81 years old Clinical indication: Injury or trauma; Other: Wound; Foot; Right; Foreign body involvement not specified TECHNIQUE: Imaging protocol: Radiologic exam of the Right foot. Views: 3 or more views. COMPARISON: CT angio abd aorta runof [id number] 11/14/2021 10:13 AM FINDINGS: Bones/joints: No acute fracture. No dislocation. Bones are moderately osteopenic. Degenerative changes in the hindfoot and forefoot. Stable lytic area involving the posterior calcaneus suspicious for osteomyelitis. Soft tissues: New small ulcerous lesion with mild adjacent soft tissue swelling lateral to the proximal metadiaphysis of the 5th metatarsal. Stable large ulcerous lesion with associated soft tissue swelling posterior to the calcaneus. XR/XR foot RT min 3V* [id number] IMPRESSION: 1. Stable lytic area involving the posterior calcaneus suspicious for osteomyelitis. 2. New small ulcerous lesion with mild adjacent soft tissue swelling lateral to the proximal metadiaphysis of the 5th metatarsal. 3. Stable large ulcerous lesion with associated soft tissue swelling posterior to the calcaneus. 4. Incidental/nonacute findings are listed in the report.
--- NOTE | 2021-12-17 18:09 | W.ED.GENADLT ---
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 Patient's been followed by wound care and had debridement 4 days ago. Patient lives in care home for care home the she is having more pain in that foot today and some slight lethargy she said no fever denies any increased drainage. Denies any worsening proving factors. Patient here is awake she able to tell me her name she is at her baseline currently. Associated symptoms: Deny chest pain, dyspnea, headache(s), nausea, rash or vomiting Review of Systems Const: Denies: fever(s), chills, body aches or change in appetite Eyes: Denies: blurry vision or eye discomfort ENMT: Denies: throat pain or dental pain Card: Denies: chest pain Resp: Denies: dyspnea GI: Denies: abdominal pain, nausea, vomiting or diarrhea : Denies: dysuria Musc: Reports: extremity pain; Denies: neck pain or back pain Skin/Breast: Denies: rash Neuro: Denies: headache(s) Psych: Denies: depression Randal/Lymph: Denies: easy bruising All/Imm: Denies: urticaria PFSH ED PFSH: Medical History CKD (chronic kidney disease) stage 3, GFR 30-59 ml/min Dementia DNR (do not resuscitate) HTN (hypertension) Leg wound, left Leg wound, right Peripheral vascular disease Social History Smoking and tobacco status: never smoked Alcohol intake: never Household members: other Housing: Long-Term Marital status: / Physical Exam Const: GENERAL APPEARANCE: frail appearing HENMT: COMMON NORMALS: normocephalic and atraumatic HEAD & SCALP: normocephalic and atraumatic Eye: COMMON NORMALS: Equal, round and reactive pupils present and EOMs intact bilaterally PUPIL: Yes Equal, round and reactive pupils present Neck/C-Spine: COMMON NORMALS: full ROM and supple Chest: COMMONS NORMALS: normal inspection of the chest and normal palpation of entire chest wall Resp: COMMON NORMALS: normal respiratory effort, No retractions, No use of accessory muscles and clear to auscultation bilaterally AUSCULTATION: clear to auscultation bilaterally Cardio: COMMON NORMALS: regular rate, regular rhythm and No murmurs present (Cardio) RATE: regular rate RHYTHM: regular rhythm GI: COMMON NORMALS: Normal to inspection, nondistended, normoactive bowel sounds present, Soft to palpation, non-tender and no masses PALPATION: Yes Soft to palpation Extremity: COMMON NORMALS: full ROM NARRATIVE EXTREMITY EXAM: Chronic pressure ulcer to right foot no erythema or drainage at this time Neuro: COMMON NORMALS: moves all extremities and no focal motor deficits Psych: COMMON NORMALS: mental status grossly normal, Normal thought process present and cooperative THOUGHT PROCESS: Normal thought process present Skin: COMMON NORMALS: no rashes or lesions noted and no wounds GENERAL SKIN EXAM: no rashes or lesions noted Course Vital Signs: Vital signs: Vital Signs Temperature 99.1 F 12/17/21 18:10 Pulse Rate 87 12/17/21 18:29 Respiratory Rate 20 H 12/17/21 18:29 Blood Pressure 109/88 12/17/21 18:29 Pulse Oximetry 93 12/17/21 18:29 [facility] - General Adult Medical Decision Making Patient presents here with a chronic foot ulcer to her right foot. She is followed by wound care she has no acute findings she is stable for discharge is to follow-up PCP and return if worsening. Lab Data : 12/17/21 18:21 12/17/21 18:21 Radiology Impressions Foot X-Ray 12/17/21 18:08 IMPRESSION: 1. Stable lytic area involving the posterior calcaneus suspicious for osteomyelitis. 2. New small ulcerous lesion with mild adjacent soft tissue swelling lateral to the proximal metadiaphysis of the 5th metatarsal. 3. Stable large ulcerous lesion with associated soft tissue swelling posterior to the calcaneus. 4. Incidental/nonacute findings are listed in the report. Laboratory Results WBC 9.4 10^3/uL (4.0-10.0) 12/17/21 18:21 RBC 4.08 10^6/uL (4.1-5.3) L 12/17/21 18:21 Hgb 11.1 g/dL (11.5-15.3) L 12/17/21 18:21 Hct 36.6 % (37.0-47.0) L 12/17/21 18:21 MCV 89.7 fl (81-99) 12/17/21 18:21 MCH 27.2 pg (28.0-34.0) L 12/17/21 18: MCHC 30.3 g/dL (30.0-36.0) 12/17/21 18: RDW 15.0 % (12.1-15.1) 12/17/21 18:21 Plt Count 288 10^3/cmm (130-400) 12/17/21 18:21 MPV 9.9 fL (7.4-10.4) 12/17/21 18:21 Neut % (Auto) 51.7 % 12/17/21 18:21 Lymph % (Auto) 36.0 % 12/17/21 18:21 [place] % (Auto) 7.8 % 12/17/21 18:21 Eos % (Auto) 3.9 % 12/17/21 18:21 Baso % (Auto) 0.5 % 12/17/21 18:21 Neut # (Auto) 4.83 10^3/uL (1.8-7.7) 12/17/21 18: Lymph # (Auto) 3.4 10^3/uL (0.8-4.8) 12/17/21 18:21 [place] # (Auto) 0.7 10^3/uL (0.2-0.9) 12/17/21 18: Eos # (Auto) 0.4 10^3/uL (0.0-0.8) 12/17/21 18:21 Baso # (Auto) 0.1 10^3/uL (0.0-0.1) 12/17/21 18: Nucleated RBC % (auto) 0 % 12/17/21 18: Nucleated RBCs # 0.0 /100WBC 12/17/21 18:21 Sodium 140 mmol/L (136-145) 12/17/21 18:21 Potassium 4.6 mmol/L (3.5-5.1) 12/17/21 18: Chloride 104 mmol/L (98-107) 12/17/21 18:21 Carbon Dioxide 28 mmol/L (22-29) 12/17/21 18:21 Anion Gap 12.6 (5-19) 12/17/21 18:21 BUN 30 mg/dL (8-23) H 12/17/21 18:21 Creatinine 1.1 mg/dL (0.5-0.9) H 12/17/21 18:21 GFR Calculation Not Reportable 12/17/21 18:21 Glucose 89 mg/dL (65-115) 12/17/21 18:21 Calculated Osmolality 296 mOsm/kg (285-295) H 12/17/21 18:21 Calcium 10.2 mg/dL (8.5-10.5) 12/17/21 18:21 Total Bilirubin 0.2 mg/dL (0.15-1.2) 12/17/21 18:21 AST 15 U/L (0-32) 12/17/21 18:21 ALT 12 U/L (0-33) 12/17/21 18:21 Alkaline Phosphatase 87 IU/L (35-105) 12/17/21 18:21 Total Protein 7.3 g/dL (6.6-8.7) 12/17/21 18:21 Albumin 3.3 g/dL (3.5-5.2) L 12/17/21 18:21 Globulin 4.0 g/dL (1.3-4.6) 12/17/21 18:21 Discharge Plan Discharge Patient Disposition: Home Clinical Impression: Arterial insufficiency with ischemic ulcer, Chronic toe pain, right foot Condition: Stable Prescriptions: New hydrocodone-acetaminophen 5-325 mg tablet 1 tab PO Q6H PRN (Reason: pain) Qty: 14 0RF No Action Tylenol 325 mg Tablet 325 mg PO Q4H PRN (Reason: Pain) 0RF acetaminophen 650 mg Suppository 650 mg MT Q6H PRN (Reason: Pain) 0RF atorvastatin 10 mg Tablet 10 mg PO DAILY 0RF aspirin 325 mg Tablet 325 mg PO DAILY 0RF sertraline 100 mg Tablet 100 mg PO DAILY 0RF olanzapine 2.5 mg Tablet 2.5 mg PO DAILY 0RF tramadol 50 mg Tablet 50 mg PO Q4H PRN (Reason: Pain) 0RF alprazolam 0.25 mg Tablet 0.25 mg PO DAILY 0RF [place] Nasal 0.65 % Aerosol,[place] 1 spray INTRANASAL Q6H PRN (Reason: Nasal Congestion) 0RF Saccharomyces boulardii 250 mg Capsule 250 mg PO DAILY 0RF fentanyl 12 mcg/hr Patch 72 Hour 1 patch TRANSDERMAL Q72H 0RF diclofenac sodium 1 % Gel 2 g TOPICAL TID PRN (Reason: Pain) 0RF Rx Instructions: apply to single elbow, wrist or hand; for hand includes palm/fingers/back of hand Eucerin Cream 1 applic TOPICAL DAILY PRN (Reason: Dry Skin) 0RF ferrous gluconate 324 mg (37.5 mg iron) Tablet 324 mg PO BIDWM Qty: 60 0RF amlodipine 5 mg Tablet 10 mg PO DAILY Qty: 0 0RF Lasix 20 mg Tablet 20 mg PO DAILY PRN (Reason: swelling) Qty: 0 0RF Discharge Orders: Discharge ED (Routine); Ordered 12/17/21 Ordered By: Armin Coe Discharge Diet: Advance as tolerated Discharge Activity: Resume usual activity Patient Instructions: Diabetic Foot Ulcers (ED), Opioid Safety Coding Level of Care Code ED Redeye Gunner for Chg Fwd Exam Comprehensive
[2021-12-17 18:10] VITALS: BP 127/63; PULSE 71; RESP 16; TEMP 37.3; O2SAT 95; BMI 17.6
[2021-12-17] MEDS: morphine 4 mg/mL SDV 1 mL IVP (18:26)
[2021-12-17] MEDS: ondansetron 2 mg/ML SDV 2 mL 4 MG IVP (18:26)
[2021-12-17 18:27] LABS: Basophils # 0.1 10^3/uL (0.0-0.1); Basophils % 0.5 %; Eosinophils # 0.4 10^3/uL (0.0-0.8); Eosinophils % 3.9 %; Hematocrit 36.6 % (37.0-47.0); Hemoglobin 11.1 g/dL (11.5-15.3); Lymphocytes # 3.4 10^3/uL (0.8-4.8); Mean Corpuscular HGB Conc 30.3 g/dL (30.0-36.0); Mean Corpuscular Hemoglobin 27.2 pg (28.0-34.0); Mean Corpuscular Volume 89.7 fl (81-99); Mean Platelet Volume 9.9 fL (7.4-10.4); Monocytes # 0.7 10^3/uL (0.2-0.9); Monocytes % 7.8 %; Neutrophils # 4.83 10^3/uL (1.8-7.7); Neutrophils % 51.7 %; Nucleated Red Blood Cells % 0 %; Platelet Count 288 10^3/cmm (130-400); Red Blood Count 4.08 10^6/uL (4.1-5.3); White Blood Count 9.4 10^3/uL (4.0-10.0)
[2021-12-17 18:29] VITALS: BP 109/88; PULSE 87; RESP 20; O2SAT 93
[2021-12-17 18:54] LABS: Alanine Aminotransferase 12 U/L (0-33); Albumin Level 3.3 g/dL (3.5-5.2); Alkaline Phosphatase 87 IU/L (35-105); Anion Gap 12.6 (5-19); Aspartate Amino Transferase 15 U/L (0-32); Blood Urea Nitrogen 30 mg/dL (8-23); Calcium 10.2 mg/dL (8.5-10.5); Carbon Dioxide 28 mmol/L (22-29); Chloride 104 mmol/L (98-107); Glucose 89 mg/dL (65-115); Osmolality Calculated 296 mOsm/kg (285-295); Potassium 4.6 mmol/L (3.5-5.1); Sodium 140 mmol/L (136-145); Total Bilirubin 0.2 mg/dL (0.15-1.2); Total Protein 7.3 g/dL (6.6-8.7)
[2021-12-17 21:16] VITALS: BP 128/58; PULSE 65; RESP 17; O2SAT 92
[2021-12-17 23:15] VITALS: BP 137/61; PULSE 64; O2SAT 92
[2021-12-18 03:11] VITALS: BP 113/67; PULSE 71; RESP 16; O2SAT 96
--- NOTE | 2021-12-18 03:53 | PC.NURSE ---
gave report to Shayy SAGE,
== END 2021-12-18 03:50 | disposition home or self-care (01) ==
PROVIDERS: Emergency Provider Emergency Medicine
DX: I77.1 Stricture of artery (principal); L97.519 Non-pressure chronic ulcer of other part of right foot with unspecified severity; Z79.82 Long term (current) use of aspirin; I12.9 Hypertensive chronic kidney disease with stage 1 through stage 4 chronic kidney disease, or unspecified chronic kidney disease; N18.30 Chronic kidney disease, stage 3 unspecified; F03.90 Unspecified dementia, unspecified severity, without behavioral disturbance, psychotic disturbance, mood disturbance, and anxiety
CPT/HCPCS: 73630; 80053; 85025; 96374; 96375; 99285; J2270; J2405

== ENCOUNTER → 2021-12-25 09:50 | Outpatient (BNVA) | payer MEDICARE, MEDICAID, SELFPAY | PROVIDERS: PCP Internal Medicine; Visit Provider Surgery | DX: I77.1 Stricture of artery (principal); L98.499 Non-pressure chronic ulcer of skin of other sites with unspecified severity | CPT/HCPCS: 99204 ==

== ENCOUNTER 2021-12-27 16:47 | Inpatient (IN) | payer MEDICARE, MEDICAID, SELFPAY ==
[2021-12-27] VITALS (14 sets, daily range): BP systolic 108–147; BP diastolic 59–81; PULSE 66–99; RESP 12–18; TEMP 36.2–37.5; O2SAT 94–100
--- NOTE | 2021-12-27 07:11 | P.ANESASSM_ITS ---
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 Operation Date: 12/27/21 10:30 Proposed Procedures p above the knee amputation right lower extremity 00338,77.1,L98.499(Right) - Brendan De Leon MD Familial anesthetic complications: none Was Beta José Luis taken within 24 hours: N/A Was Clonidine taken within 24 hours: N/A Social No alcohol and No tobacco Exam alert, oriented x 3, clear to auscultation bilaterally and regular rate & rhythm Airway Submandibular: within normal limits Cervical ROM: within normal limits Mallampati: Class II Comments: Comments: missing teeth Pulmonary None reported CV/HEM Anemia (Anemia ), Hypertension and Peripheral Vascular Disease 08/01/2021 ? Interpretive Statements SINUS RHYTHM SEPTAL MYOCARDIAL INFARCTION , OF INDETERMINATE AGE [40+ ms Q WAVE IN V1/V2] No previous ECG available for comparison Electronically Signed On 08-01-2021 20:21:53 OPERATIONS ASST by Charanjit Carcamo M.D. [email or web address] 07/2021 CONCLUSIONS ?Normal left ventricular size and systolic function, EF 83 %. ?Mild left ventricular hypertrophy. ?Grade I/IV diastolic dysfunction (abnormal relaxation filling ?pattern), normal to mildly elevated filling pressures. ?Mildly increased left atrial size. ?Trace aortic valve regurgitation. ?Trace to mild tricuspid valve regurgitation. ?Estimated pulmonary artery peak systolic pressure of 39 mmHg ?There is no pericardial effusion. ?There are no intracardiac masses. ?No previous study is available for comparison. CTA 10/2021 CT/CT angio abd aorta runof [id number] IMPRESSION: ? 1.? Patient is status post [id number] LEFT lower extremity amputation. 2.? Progression of atherosclerosis and areas of stenosis since the prior study from 2013. 3.? Occluded proximal RIGHT SFA. Similar to the prior examination. 4.? 50% stenosis origin of the RIGHT common iliac artery. 5.? Small ulcerated plaque mid to distal RIGHT common iliac artery measures 5 mm. 6.? Bilateral occlusions and stenoses in the internal iliac arteries. 7.? 70% stenosis origin LEFT common iliac artery. 8.? Attempt at reconstitution in the distal RIGHT SFA are very limited. RIGHT popliteal artery occluded. Limited three-vessel runoff to the RIGHT ankle. 9.? Mild presacral soft tissue thickening with mild rectal wall thickening. No mass identified. ? Chronic Renal Insufficiency GI None reported Metabolic None reported Musc/skel Osteoarthritis/DJD Limb ischemia Neuropsych Dementia Anesthetic Plan ASA status: 4 (81 year old male s/p LLE amputation w/ hx of admissions for septic ulcers, vascular disease, CKD, HTN, and anemia ) Anesthesia: Anesthesia Evaluation and Regional (specify below) (Spinal with sciatic and femoral nerve blocks for post op pain control.) Other: We discussed risk and benefits of general vs spinal anesthesia including DVT risk, infection, paralysis/catastrophic nerve injury, back bruising/pain, PDPH, conversion to general in case of spinal, PONV, sore throat (sometimes severe), corneal abrasion, positioning and peripheral nerve injuries, life threatening allergic reaction, post operative ICU admission requiring prolonged intubation, stroke, heart attack, , post operative delirium and/or post operative cognitive decline, and rare incidences of recall (under general anesthesia). We discussed risk and benefits of nerve block for post op pain control including management of pain and titration of pain medications as signs/symptoms of nerve block wearing off begin to appear and/or prior bed. We discussed risk of failed nerve block, vascular injury or other vital structure injury, abscess/infection, LAST, and nerve injury. Family elects spinal with sciatic and femoral nerve blocks for post op pain control. Risk of > 500 ml blood loss (7ml/kg in children): No Medications/Allergies Home Medications Medication Instructions Recorded Confirmed Last Taken Type Saccharomyces boulardii 250 mg 250 mg PO DAILY 08/01/21 12/27/21 12/27/21 History capsule acetaminophen 325 mg tablet 325 mg PO Q4H PRN Pain 08/01/21 12/26/21 Unknown History (Tylenol) acetaminophen 650 mg rectal 650 mg MN Q6H PRN Pain 08/01/21 12/26/21 Unknown History suppository alprazolam 0.25 mg tablet 0.25 mg PO DAILY 08/01/21 12/26/21 Unknown History aspirin 325 mg tablet 325 mg PO DAILY 08/01/21 12/27/21 12/26/21 History atorvastatin 10 mg tablet 10 mg PO DAILY 08/01/21 12/27/2112/26/22 History diclofenac sodium 1 % topical gel 2 g topical TID PRN Pain 08/01/21 12/26/21 Unknown History fentanyl 12 mcg/hr transdermal 1 patch transdermal Q72H 08/01/21 12/27/21 12/26/21 History patch lanolin alcohols-mineral 1 applic topical DAILY PRN Dry Skin 08/01/21 12/26/21 Unknown History oil-w.petrolatum-ceresin topical cream (Eucerin) olanzapine 2.5 mg tablet 2.5 mg PO DAILY 08/01/21 12/27/21 12/27/21 History sertraline 100 mg tablet (Zoloft) 100 mg PO DAILY 08/01/21 12/27/21 12/27/21 History sodium chloride 0.65 % nasal spray 1 spray intranasal Q6H PRN Nasal 08/01/21 12/26/21 Unknown History aerosol ([place] Nasal) Congestion amlodipine 5 mg tablet 10 mg PO DAILY #0 tabs 08/05/21 12/27/21 12/27/21 Rx ferrous gluconate 324 mg (37.5 mg 324 mg PO BIDWM #60 tabs 08/05/21 12/26/21 Unknown Rx iron) tablet furosemide 20 mg tablet (Lasix) 20 mg PO DAILY PRN swelling #0 tabs 08/05/21 12/26/21 Unknown Rx duloxetine 60 mg capsule,delayed 60 mg PO DAILY 12/25/21 12/27/21 12/27/21 History release gabapentin 300 mg capsule 300 mg PO TID 12/25/21 12/27/21 12/27/21 History morphine concentrate 100 mg/5 mL 10 mg PO Q1H 12/25/21 12/26/21 Unknown History (20 mg/mL) oral solution Allergies Allergy/AdvReac Type Severity Reaction Status Date / Time influenza virus vaccine ts Allergy ALGY-Anaphy Verified 12/25/21 09:54 [id number] (36 mos,up) laxis [From Flulaval] [facility] Anesthesia Medical History CKD (chronic kidney disease) stage 3, GFR 30-59 ml/min Dementia DNR (do not resuscitate) HTN (hypertension) Leg wound, left Leg wound, right Peripheral vascular disease Surgical History History of left above knee amputation Social History Smoking and tobacco status: never smoked Alcohol intake: never Household members: other Housing: Custodial Marital status: / Data Anesthesia Cardiac Studies: Echocardiogram 08/01/21
--- NOTE | 2021-12-27 10:09 | P.HP_ITS ---
Same Day Surgery H&P Indication for Procedure/HPI DATE OF PROCEDURE: December 27, 2021 CHIEF COMPLAINT/INDICATIONFOR SURGICAL PROCEDURE: right AKA PREOP DIAGNOSIS: Right LE ischemic ulcer PLANNED PROCEDURE: Operation Date: 12/27/21 10:30 Proposed Procedures p above the knee amputation right lower extremity 23706,77.1,L98.499(Right) - Brendan De Leon MD Medications/Allergies* Home Medications Medication Instructions Recorded Confirmed Type Saccharomyces boulardii 250 mg 250 mg PO DAILY 08/01/21 12/27/21 History capsule acetaminophen 325 mg tablet 325 mg PO Q4H PRN Pain 08/01/21 12/26/21 History (Tylenol) acetaminophen 650 mg rectal 650 mg NE Q6H PRN Pain 08/01/21 12/26/21 History suppository alprazolam 0.25 mg tablet 0.25 mg PO DAILY 08/01/21 12/26/21 History aspirin 325 mg tablet 325 mg PO DAILY 08/01/21 12/27/21 History atorvastatin 10 mg tablet 10 mg PO DAILY 08/01/21 12/27/21 History diclofenac sodium 1 % topical gel 2 g topical TID PRN Pain 08/01/21 12/26/21 History fentanyl 12 mcg/hr transdermal 1 patch transdermal Q72H 08/01/21 12/27/21 History patch lanolin alcohols-mineral 1 applic topical DAILY PRN Dry Skin 08/01/21 12/26/21 History oil-w.petrolatum-ceresin topical cream (Eucerin) olanzapine 2.5 mg tablet 2.5 mg PO DAILY 08/01/21 12/27/21 History sertraline 100 mg tablet (Zoloft) 100 mg PO DAILY 08/01/21 12/27/21 History sodium chloride 0.65 % nasal spray 1 spray intranasal Q6H PRN Nasal 08/01/21 12/26/21 History aerosol ([place] Nasal) Congestion duloxetine 60 mg capsule,delayed 60 mg PO DAILY 12/25/21 12/27/21 History release gabapentin 300 mg capsule 300 mg PO TID 12/25/21 12/27/21 History morphine concentrate 100 mg/5 mL 10 mg PO Q1H 12/25/21 12/26/21 History (20 mg/mL) oral solution Allergies/Adverse Reactions Allergy/AdvReac Type Severity Reaction Status Date / Time influenza virus vaccine ts Allergy ALGY-Anaphy Verified 12/25/21 09:54 0021-1740 (36 mos,up) laxis [From Flulaval] Pertinent History/Comorbid Conditions* Medical History (Updated 12/26/21 @ 00:00 by ) CKD (chronic kidney disease) stage 3, GFR 30-59 ml/min Dementia DNR (do not resuscitate) HTN (hypertension) Leg wound, left Leg wound, right Peripheral vascular disease Surgical History (Updated 12/26/21 @ 07:20 by Brendan De Leon MD) History of left above knee amputation Social History Smoking and tobacco status: never smoked Alcohol intake: never Household members: other Housing: Half-Way Marital status: / Pertinent Exam Findings alert, oriented x 3 and regular rate & rhythm Recommendations Surgery/Procedure today Coding Level of Care Code Acute Milker Machine for Martinez Tovar
[2021-12-27] MEDS: ceFAZolin 2,000 MG in sodium chloride 0.9% (plus) 50 ML 100 MG IV (11:32)
--- NOTE | 2021-12-27 12:40 | ANES.PROC ---
Anesthesia Procedures Procedure/Date: 12/27/21 Nerve Block ^: Nerve Block 1: Main Anesthesia: spinal anesthesia block Time Out Performed: Yes Consent: requested by attending/covering physician, from patient, risks and benefits reviewed and patient agrees to proceed Nerve block location: other (sciatic nerve block, anterior approach with US) Anesthesia monitors applied: pulse oximetry, BP cuff and oxygen Amount of anesthesia used (mL): 12 Ultrasound used to: recognize landmarks and other (sciatic nerve) Nerve Stimulator Used?: Yes (motor response lost at 0.4mA) Interscalene/Femoral BLK: 4 stimuplex 21 g needle used for position and inplane approach, visualize local anesthetic spread and no vascular puncture identified Injection: neg aspiration of heme Patient Tolerated Procedure: well Complications: none Additional Comments: After time out sterile prep, using sterile technique, and using real time US guidance for target selection of sciatic nerve from anterior view needle was inserted with real time visualization of needle entry and real time visualization of needle advancement toward intended target. Negative aspiration. LA injected incrementally with negative aspiration every 5 cc and real time US visualization of LA spread throughout procedure. Tolerated well. Image unable to be saved d/t printer malfunction.
--- NOTE | 2021-12-27 12:49 | ANES.PROC ---
Anesthesia Procedures Procedure/Date: 12/27/21 Nerve Block ^: Nerve Block 2: Main Anesthesia: spinal anesthesia block Time Out Performed: Yes Consent: requested by attending/covering physician, from patient, risks and benefits reviewed and patient agrees to proceed Nerve block location: femoral Anesthesia monitors applied: pulse oximetry, BP cuff and oxygen Anesthetic Used: ropivicaine 0.5% Amount of anesthesia used (mL): 12 Ultrasound used to: recognize landmarks and visualize and ID femerol nerve Nerve Stimulator Used?: Yes (motor response lost at 0.48 mA) Interscalene/Femoral BLK: 2 stimuplex 22 g needle used for position and inplane approach, visualize local anesthetic spread and no vascular puncture identified Injection: neg aspiration of heme Complications: none Additional Comments: After time out sterile prep, using sterile technique, and using real time US guidance for target selection needle was inserted with real time visualization of needle entry and real time visualization of needle advancement toward intended target. Negative aspiration. LA injected incrementally with negative aspiration every 5 cc and real time US visualization of LA spread throughout procedure. Tolerated well. Image not saved d/t printer malfunction.
--- NOTE | 2021-12-27 13:49 | PM.OP ---
Operative Report Date of procedure: December 27, 2021 Pre-op diagnosis: Nonhealing right lower extremity ischemic ulcer Post-op diagnosis: same Procedure done: Right above-knee amputation Specimens removed/disposition: Right AKA specimen Surgeon: Brendan De Leon Anesthesia: MAC and Other (Spinal) Brief History: The patient was taken to the operating room and placed under spinal after IV antibiotic had been administered. A Perez catheter was placed and the right lower extremity was prepped and draped in a sterile manner. The tourniquet was applied to 250 millimeters Hg. Using a 10 blade a fishmouth incision was made at the level of the left AKA. The subcutaneous tissue and anterior and medial compartment of the muscles were divided using electrocautery. The superficial femoral artery branch as well as the greater saphenous vein were clamped, divided and tied off with 3-0 Vicryl sutures. Using a periosteal elevator the femur was freed of musculotendinous attachments for about 5 cm above the skin level. The femur was divided using a saw and the edges were filed. The muscles of the posterior compartment were divided using electrocautery after the proximal popliteal artery and vein were clamped and tied off with 3-0 Vicryl suture. The sciatic nerve was skeletonized and divided after applying gentle traction in order to enable it to retract into the muscular tissue. The tourniquet was released at 37 minutes and bleeding muscular branches were clamped and tied off with 3-0 Vicryl suture. Hemostasis was ensured and the muscular fascia was approximated using interrupted 2-0 Vicryl suture. Subcutaneous tissues were approximated using running 3-0 Vicryl suture and skin was closed with josephine. Xeroform, ABDs, Kerlix and Bowen wrap was used to cover the incision. The patient was extubated and transferred to recovery room with a Perez catheter in place.
--- NOTE | 2021-12-27 14:46 | ANE.PACU2 ---
Inpatient post-anesthesia follow up: Airway intact: Yes Vital signs: Temperature 97.2 F Pulse Rate 78 Respiratory Rate 14 Blood Pressure 115/70 Pulse Oximetry 95 Oxygen Delivery Me thod Room Air Oxygen Flow Rate 6 Fraction of Inspir ed Oxygen Hydration adequate: Yes Nausea and vomiting: No Pain level: 1 Mental status: Baseline
[2021-12-27] MEDS: lactated ringers 1,000 ML 100 ML IV (18:32)
--- NOTE | 2021-12-27 19:30 | PC.NURSE ---
At bedside report we removed patient covers to assess post surgical dressing to find patient's hopkins catheter lying next to her in bed with the balloon still inflated.
--- NOTE | 2021-12-27 20:30 | PC.NURSE ---
Attempted to place new hopkins catheter by lead nurse with out success. Patient yelled out when attempting to position patient for placement. Nurse was unable to get patient to comprehend catheter use or procedure.
[2021-12-27] MEDS: ceFAZolin 3,000 MG in sodium chloride 0.9% (100 ml) 100 ML 200 MG IV (20:50)
[2021-12-28] VITALS (7 sets, daily range): BP systolic 122–148; BP diastolic 61–84; PULSE 61–94; RESP 16–17; TEMP 36.8–36.9; O2SAT 95–97
[2021-12-28] MEDS: ceFAZolin 3,000 MG in sodium chloride 0.9% (100 ml) 100 ML 200 MG IV (02:05)
[2021-12-28 04:56] LABS: Basophils % 0.2 %; Hematocrit 33.1 % (37.0-47.0); Lymphocytes # 2.2 10^3/uL (0.8-4.8); Lymphocytes % 19.9 %; Mean Corpuscular HGB Conc 30.2 g/dL (30.0-36.0); Mean Corpuscular Hemoglobin 26.8 pg (28.0-34.0); Mean Corpuscular Volume 88.7 fl (81-99); Mean Platelet Volume 10.2 fL (7.4-10.4); Monocytes # 0.8 10^3/uL (0.2-0.9); Monocytes % 7.2 %; Neutrophils # 7.98 10^3/uL (1.8-7.7); Neutrophils % 72.3 %; Nucleated Red Blood Cells % 0 %; Platelet Count 310 10^3/cmm (130-400); Red Blood Count 3.73 10^6/uL (4.1-5.3); Red Cell Distribution Width 14.8 % (12.1-15.1)
[2021-12-28 05:25] LABS: Anion Gap 13.1 (5-19); Blood Urea Nitrogen 19 mg/dL (8-23); Calcium 9.1 mg/dL (8.5-10.5); Carbon Dioxide 26 mmol/L (22-29); Chloride 106 mmol/L (98-107); Glucose 135 mg/dL (65-115); Osmolality Calculated 296 mOsm/kg (285-295); Potassium 4.1 mmol/L (3.5-5.1); Sodium 141 mmol/L (136-145)
[2021-12-28] MEDS: gabapentin 300 mg Capsule PO ×3 (08:55→20:33)
[2021-12-28] MEDS: amlodipine 10 mg Tablet PO (08:56)
[2021-12-28] MEDS: duloxetine 60 mg Capsule PO (08:56)
[2021-12-28] MEDS: sertraline 100 mg Tablet PO (08:56)
[2021-12-28] MEDS: ferrous gluconate 324 mg Tablet PO ×2 (08:56→18:22)
[2021-12-28] MEDS: OLANZapine 5 mg TABLET 2.5 MG PO (08:56)
[2021-12-28] MEDS: atorvastatin 40 mg Tablet 10 MG PO (08:56)
[2021-12-28] MEDS: ALPRAZolam 0.5 mg Tablet 0.25 MG PO (08:57)
[2021-12-28] MEDS: fentaNYL 12 mcg Patch 1 PATCH TRANSDERMA (08:58)
[2021-12-28] MEDS: sennosides-docusate Tablet 1 TAB PO ×2 (08:59→19:22)
[2021-12-28] MEDS: lactated ringers 1,000 ML 100 ML IV ×2 (09:04→18:21)
--- NOTE | 2021-12-28 10:21 | PC.CHAP ---
Pastoral Care Encounter/Spiritual Assessment Type of Contact [] Declined herbologist visit [] Patient/Family/Request visit [] Outpatient visit [] Follow-up visit [] Physician referral [] Code/Alert [] Routine visit [] Staff referral [] Actively dying [] Patient sleeping [] Family support [] [] Out of room [] Palliative care [] [] Receiving care in room [] Pre-surgical visit [] Trauma [x] Long length of stay [] ICU visit [] Other: Relational/Emotional Strength [] Patient feels connected with others/family/visitors/staff [] Distress [] Loneliness/isolation [] Abandonment Spirituality of Patient [] Person of Dot [] Attends Jehovah'S Witness of their Dot [] Believes in Prayer [] Reads Bible or Sikh materials [] There are Spiritual issues to be addressed User Experience Developer Interventions [] Prayer [] Active listening [] Non-anxious presence [] Spiritual/emotional support [] Crisis/trauma care [] Spiritual counseling [] Bereavement support [] Provided bereavement packet [] Provided Bible/devotional materials [] Provided toy/stuffed animal, coloring book to patient or family member [] Provided Communion [] Anointing/Golden [] Salvation [] Completed spiritual assessment [] Other: Impact on Illness or Injury [] Angry [] Fearful [] Anxious [] Often cries [] Exhaustion [] Unable to work [] Unable to attend pentecostal [] Unable to walk/stand [] Unable to read [] Unable to drive [] Unable to eat/drink [] Unable to sleep [] Unable to be with family [] Patient intubated [] Other: Summary senior negative resonse Time spent with patient 5 mins
[2021-12-28] MEDS: morphine 4 mg/mL SDV 1 mL 3 MG IVP (10:47)
--- NOTE | 2021-12-28 15:18 | P.PN_ITS ---
Subjective Subjective: Patient's pain is reasonably well controlled today, no nausea or vomiting, afebrile, hemodynamically stable Medications: Reviewed: Yes Vitals/I&O/Wt Last Vital Signs Temp 98.5 F 12/28/21 11:51 Pulse 61 12/28/21 13:40 Resp 16 12/28/21 13:40 BP 127/84 12/28/21 11:51 Pulse Ox 97 12/28/21 13:40 O2 Del Method 12/28/21 13:40 O2 Flow Rate 6 12/27/21 20:00 12/28/21 12/28/21 12/28/21 06:59 14:59 22:59 Intake Total 1000 / 1150 480 / 480 Output Total Balance 1000 / 890 479 / 479 Weight last 48 hrs Weight 117 lb Weight 155 lb Physical Exam Narrative: Neuro: Arousable, follows commands Right AKA stump: Dressings dry and intact Urinary Catheter Management: Perez: Cath Placed During This Visit: yes Reason for Continuing Indwelling Catheter: Perioperative Use in Selected Surgeries Urinary Catheter Date of Insertion: 12/27/21 Urinary Catheter Time of Insertion: 12:00 Data : 12/28/21 04:48 12/28/21 04:48 A&P Assessment and plan (1) S/P AKA (above knee amputation): 81-year-old female status post right AKA for ischemic lower extremity ulcers. Hemodynamically stable DC Perez Continue IV fluids since creatinine is 1.2 Hemoglobin is stable IV Ancef for 24 more hours Hopefully patient can go back to [facility] tomorrow Status: Acute Attestations Medical Necessity Statement*: Status post LEON requiring monitoring for 1 more night Coding Level of Care Code Acute General Pediatrician for [facility] Fwd Diagnoses S/P AKA (above knee amputation) Z89.619
[2021-12-28] MEDS: ceFAZolin 2,000 MG in sodium chloride 0.9% (plus) 50 ML 100 MG IV ×2 (15:35→20:33)
--- NOTE | 2021-12-28 17:00 | PC.NURSE ---
patient is pleasantly confused removed amp dressing and picked at surgical site. netting put on over dressing to help deter patient. Son at bedside for a short visit states that patient is cognitively at base line.
[2021-12-29] VITALS: BP 124/49; PULSE 64; RESP 16; TEMP 37.1; O2SAT 95
[2021-12-29 04:01] VITALS: RESP 18
[2021-12-29] MEDS: morphine 4 mg/mL SDV 1 mL 3 MG IVP (04:01)
[2021-12-29] MEDS: lactated ringers 1,000 ML 100 ML IV (04:02)
[2021-12-29 04:51] LABS: Basophils % 0.4 %; Eosinophils % 0.4 %; Hematocrit 32.2 % (37.0-47.0); Hemoglobin 9.7 g/dL (11.5-15.3); Lymphocytes # 2.8 10^3/uL (0.8-4.8); Lymphocytes % 25.4 %; Mean Corpuscular HGB Conc 30.1 g/dL (30.0-36.0); Mean Corpuscular Hemoglobin 27.1 pg (28.0-34.0); Mean Corpuscular Volume 89.9 fl (81-99); Monocytes # 1.1 10^3/uL (0.2-0.9); Monocytes % 10.2 %; Neutrophils # 6.98 10^3/uL (1.8-7.7); Neutrophils % 63.1 %; Nucleated Red Blood Cells % 0 %; Platelet Count 303 10^3/cmm (130-400); Red Blood Count 3.58 10^6/uL (4.1-5.3); Red Cell Distribution Width 14.9 % (12.1-15.1); White Blood Count 11.1 10^3/uL (4.0-10.0)
[2021-12-29 05:21] LABS: Anion Gap 11.7 (5-19); Blood Urea Nitrogen 16 mg/dL (8-23); Carbon Dioxide 26 mmol/L (22-29); Chloride 109 mmol/L (98-107); Glucose 95 mg/dL (65-115); Osmolality Calculated 297 mOsm/kg (285-295); Potassium 3.7 mmol/L (3.5-5.1); Sodium 143 mmol/L (136-145)
[2021-12-29] MEDS: ceFAZolin 2,000 MG in sodium chloride 0.9% (plus) 50 ML 100 MG IV (05:37)
[2021-12-29 10:17] VITALS: RESP 18
[2021-12-29] MEDS: oxyCODONE-APAP 5-325 mg Tablet 1 TAB PO (10:17)
[2021-12-29] MEDS: gabapentin 300 mg Capsule PO (10:18)
[2021-12-29] MEDS: ALPRAZolam 0.5 mg Tablet 0.25 MG PO (10:18)
[2021-12-29] MEDS: OLANZapine 5 mg TABLET 2.5 MG PO (10:18)
[2021-12-29] MEDS: sertraline 100 mg Tablet PO (10:18)
[2021-12-29] MEDS: atorvastatin 40 mg Tablet 10 MG PO (10:19)
[2021-12-29] MEDS: duloxetine 60 mg Capsule PO (10:19)
[2021-12-29] MEDS: amlodipine 10 mg Tablet PO (10:20)
[2021-12-29] MEDS: sennosides-docusate Tablet 1 TAB PO (10:20)
[2021-12-29] MEDS: ferrous gluconate 324 mg Tablet PO (10:20)
--- NOTE | 2021-12-29 10:44 | P.DS_ITS ---
Discharge Providers Date of Admission: 12/27/21 16:47 Date of Discharge: December 29, 2021 Attending Provider at Admission: Brendan De Leon MD Attending Provider at Discharge: Brendan De Leon MD Primary Care Provider: Alexis Figueroa MD Diagnoses at Discharge Discharge Diagnosis (1) S/P AKA (above knee amputation): Status: Acute Permanent problem details: Right Reason for Visit Reason for Visit: Ischemic ulcer right lower extremity Brief History: This is a 81-year-old female with extensive peripheral vascular disease with a left to right lower extremity ulcer which has not healed with aggressive wound care. Decision was therefore made for right above-knee amputation after discussion with the patient and her son. She has had a prior left above-knee amputation. Hospital Course Hospital Course The patient underwent right above-knee amputation and was monitored in the hospital. At time of discharge patient is awake pain is well controlled and she is tolerating a regular diet. Her vital signs are stable and her AKA stump did not show any evidence of cellulitis or significant hematoma. Incision is clean dry and intact Physical Exam Urinary Catheter Management: Perez: Cath Placed During This Visit: yes Reason for Continuing Indwelling Catheter: Perioperative Use in Selected Surgeries Urinary Catheter Date of Insertion: 12/27/21 Urinary Catheter Time of Insertion: 12:00 Discharge Data Studies Completed and Pending Pending at discharge Category Date Time Status Basic Metabolic Panel AM LABS Lab 12/30/21 04:00 Ordered Complete Blood Count w/Auto AM LABS Lab 12/30/21 04:00 Ordered Pathology: Surgical [PTH] Routine Pth 12/27/21 13:33 Received Laboratory Results WBC 11.1 10^3/uL (4.0-10.0) H 12/29/21 04:23 RBC 3.58 10^6/uL (4.1-5.3) L 12/29/21 04:23 Hgb 9.7 g/dL (11.5-15.3) L 12/29/21 04:23 Hct 32.2 % (37.0-47.0) L 12/29/21 04:23 MCV 89.9 fl (81-99) 12/29/21 04:23 MCH 27.1 pg (28.0-34.0) L 12/29/21 04:23 MCHC 30.1 g/dL (30.0-36.0) 12/29/21 04:23 RDW 14.9 % (12.1-15.1) 12/29/21 04:23 Plt Count 303 10^3/cmm (130-400) 12/29/21 04:23 MPV 10.0 fL (7.4-10.4) 12/29/21 04:23 Neut % (Auto) 63.1 % 12/29/21 04:23 Lymph % (Auto) 25.4 % 12/29/21 04:23 [place] % (Auto) 10.2 % 12/29/21 04:23 Eos % (Auto) 0.4 % 12/29/21 04:23 Baso % (Auto) 0.4 % 12/29/21 04:23 Neut # (Auto) 6.98 10^3/uL (1.8-7.7) 12/29/21 04:23 Lymph # (Auto) 2.8 10^3/uL (0.8-4.8) 12/29/21 04:23 [place] # (Auto) 1.1 10^3/uL (0.2-0.9) H 12/29/21 04:23 Eos # (Auto) 0.0 10^3/uL (0.0-0.8) 12/29/21 04:23 Baso # (Auto) 0.0 10^3/uL (0.0-0.1) 12/29/21 04: Nucleated RBC % (auto) 0 % 12/29/21 04: Nucleated RBCs # 0.0 /100WBC 12/29/21 04:23 Sodium 143 mmol/L (136-145) 12/29/21 04:23 Potassium 3.7 mmol/L (3.5-5.1) 12/29/21 04:23 Chloride 109 mmol/L (98-107) H 12/29/21 04:23 Carbon Dioxide 26 mmol/L (22-29) 12/29/21 04:23 Anion Gap 11.7 (5-19) 12/29/21 04:23 BUN 16 mg/dL (8-23) 12/29/21 04:23 Creatinine 1.0 mg/dL (0.5-0.9) H 12/29/21 04:23 GFR Calculation Not Reportable 12/29/21 04:23 Glucose 95 mg/dL (65-115) 12/29/21 04:23 Calculated Osmolality 297 mOsm/kg (285-295) H 12/29/21 04:23 Calcium 9.0 mg/dL (8.5-10.5) 12/29/21 04:23 Vitals Last Vital Signs Temp 98.8 F 12/29/21 00:00 Pulse 64 12/29/21 00:00 Resp 18 12/29/21 10:17 BP 124/49 12/29/21 00:00 Pulse Ox 95 12/29/21 00:00 O2 Del Method 12/28/21 15:54 O2 Flow Rate 6 12/27/21 20:00 Discharge Plan Discharge Patient Disposition: Xfer SNF Condition: Stable Prescriptions: New cephalexin 500 mg capsule 500 mg PO TID 5 Days Qty: 15 0RF Continued duloxetine 60 mg capsule,delayed release(DR/EC) 60 mg PO DAILY gabapentin 300 mg capsule 300 mg PO TID morphine concentrate 100 mg/5 mL (20 mg/mL) solution 10 mg PO Q1H acetaminophen [Tylenol] 325 mg Tablet 325 mg PO Q4H PRN (Reason: Pain) acetaminophen 650 mg Suppository 650 mg [place] Q6H PRN (Reason: Pain) atorvastatin 10 mg Tablet 10 mg PO DAILY aspirin 325 mg Tablet 325 mg PO DAILY sertraline [Zoloft] 100 mg Tablet 100 mg PO DAILY olanzapine 2.5 mg Tablet 2.5 mg PO DAILY alprazolam 0.25 mg Tablet 0.25 mg PO DAILY [place] Nasal 0.65 % Aerosol,[place] 1 spray INTRANASAL Q6H PRN (Reason: Nasal Congestion) Saccharomyces boulardii 250 mg Capsule 250 mg PO DAILY fentanyl 12 mcg/hr Patch 72 Hour 1 patch TRANSDERMAL Q72H diclofenac sodium 1 % Gel 2 g TOPICAL TID PRN (Reason: Pain) Rx Instructions: apply to single elbow, wrist or hand; for hand includes palm/fingers/back of hand Eucerin Cream 1 applic TOPICAL DAILY PRN (Reason: Dry Skin) ferrous gluconate 324 mg (37.5 mg iron) Tablet 324 mg PO BIDWM Qty: 60 0RF amlodipine 5 mg Tablet 10 mg PO DAILY Qty: 0 0RF furosemide [Lasix] 20 mg Tablet 20 mg PO DAILY PRN (Reason: swelling) Qty: 0 0RF Discharge Orders: Discharge Order (Routine); Ordered 12/29/21 Ordered By: Brendan De Leon Discharge Diet: Usual diet Discharge Attestations Time Spent in Discharge Care*: less than 30 min Status at Discharge: Cognitive status at discharge: moderately impaired cognition , Behavioral status at discharge: cooperative , Quality Metrics Clinical Quality Measures [ No reported AMI, CVA or VTE this stay] Coding Level of Care Code Acute [facility] [place] note Diagnoses S/P AKA (above knee amputation) Z89.619
[2021-12-29 11:56] VITALS: BP 105/57; PULSE 61; RESP 18; TEMP 37; O2SAT 94
== END 2021-12-29 14:49 | disposition skilled nursing facility (03) | DRG 240 ==
LOC: MEDSURG 12-28 11:49
PROVIDERS: Admitting Provider Surgery; PCP Internal Medicine; Visit Provider Surgery
PROC: 0Y6C0Z3 Detachment at Right Upper Leg, Low, Open Approach (ICD-10-PCS; CPT 27590; principal; 2021-12-27 10:30)
DX: I70.261 Atherosclerosis of native arteries of extremities with gangrene, right leg (principal); L97.814 Non-pressure chronic ulcer of other part of right lower leg with necrosis of bone; I12.9 Hypertensive chronic kidney disease with stage 1 through stage 4 chronic kidney disease, or unspecified chronic kidney disease; N18.30 Chronic kidney disease, stage 3 unspecified; Z66 Do not resuscitate; Z79.82 Long term (current) use of aspirin; Z79.891 Long term (current) use of opiate analgesic; Z89.612 Acquired absence of left leg above knee
CPT/HCPCS: 36415; 51702; 80048; 85025; 88307; 88311; 94664; 99204; J0690; J2270; J2704; J2795; J3490

== ENCOUNTER → 2022-01-09 10:26 | Outpatient (BNVA) | payer MEDICARE, MEDICAID, SELFPAY | PROVIDERS: PCP Internal Medicine; Visit Provider Surgery | DX: Z98.890 Other specified postprocedural states (principal) | CPT/HCPCS: 99024 ==

== ENCOUNTER → 2022-01-17 09:17 | Outpatient (BNVA) | payer MEDICARE, MEDICAID, SELFPAY | PROVIDERS: PCP Internal Medicine; Visit Provider Thoracic Surgery (Cardiothoracic Vascular Surgery) | DX: L97.112 Non-pressure chronic ulcer of right thigh with fat layer exposed (principal) | CPT/HCPCS: 11043; 87070; 87077; 87186 ==

== ENCOUNTER → 2022-01-24 09:39 | Outpatient (BNVA) | payer MEDICARE, MEDICAID, SELFPAY | PROVIDERS: PCP Internal Medicine; Visit Provider Thoracic Surgery (Cardiothoracic Vascular Surgery) | DX: L97.812 Non-pressure chronic ulcer of other part of right lower leg with fat layer exposed (principal) | CPT/HCPCS: 11042; 11045; 97605 ==

== ENCOUNTER → 2022-01-31 10:42 | Outpatient (BNVA) | payer MEDICARE, MEDICAID, SELFPAY | PROVIDERS: PCP Internal Medicine; Visit Provider Thoracic Surgery (Cardiothoracic Vascular Surgery) | DX: L97.122 Non-pressure chronic ulcer of left thigh with fat layer exposed (principal) | CPT/HCPCS: 11044; 11047; 97605; A6237; A6250 ==

== ENCOUNTER → 2022-02-07 09:24 | Outpatient (BNVA) | payer MEDICARE, MEDICAID, SELFPAY | PROVIDERS: PCP Internal Medicine; Visit Provider Nurse Practitioner Family | DX: I96 Gangrene, not elsewhere classified (principal); L97.112 Non-pressure chronic ulcer of right thigh with fat layer exposed | CPT/HCPCS: 11042; 11045; A6237; A6250 ==

== ENCOUNTER → 2022-02-13 09:11 | Outpatient (BNVA) | payer MEDICARE, MEDICAID, SELFPAY | PROVIDERS: PCP Internal Medicine; Visit Provider Student in an Organized Health Care Education/Training Program | DX: M25.562 Pain in left knee (principal); Z89.619 Acquired absence of unspecified leg above knee | CPT/HCPCS: 99214 ==

== ENCOUNTER → 2022-02-21 10:21 | Outpatient (BNVA) | payer MEDICARE, MEDICAID, SELFPAY | PROVIDERS: PCP Internal Medicine; Visit Provider Thoracic Surgery (Cardiothoracic Vascular Surgery) | DX: I96 Gangrene, not elsewhere classified (principal); L97.112 Non-pressure chronic ulcer of right thigh with fat layer exposed | CPT/HCPCS: 11042; 97605; A6237; A6250 ==

== ENCOUNTER → 2022-02-28 09:48 | Outpatient (BNVA) | payer MEDICARE, MEDICAID, SELFPAY | PROVIDERS: PCP Internal Medicine; Visit Provider Thoracic Surgery (Cardiothoracic Vascular Surgery) | DX: I96 Gangrene, not elsewhere classified (principal); L97.112 Non-pressure chronic ulcer of right thigh with fat layer exposed | CPT/HCPCS: 97597 ==

== ENCOUNTER → 2022-03-14 14:32 | Outpatient (BNVA) | payer MEDICARE, MEDICAID, SELFPAY | PROVIDERS: PCP Internal Medicine; Visit Provider Thoracic Surgery (Cardiothoracic Vascular Surgery) | DX: I96 Gangrene, not elsewhere classified (principal); L97.812 Non-pressure chronic ulcer of other part of right lower leg with fat layer exposed | CPT/HCPCS: 97597 ==

== ENCOUNTER → 2022-04-04 13:23 | Outpatient (BNVA) | payer MEDICARE, MEDICAID, SELFPAY | PROVIDERS: PCP Internal Medicine; Visit Provider Thoracic Surgery (Cardiothoracic Vascular Surgery) | DX: I96 Gangrene, not elsewhere classified (principal); L97.812 Non-pressure chronic ulcer of other part of right lower leg with fat layer exposed | CPT/HCPCS: 99212; A6021; A6212 ==

== ENCOUNTER 2022-06-30 22:45 | Emergency (ER) | payer MEDICARE, MEDICAID, SELFPAY ==
[2022-06-30 22:46] VITALS: BP 131/60; PULSE 65; RESP 10; TEMP 36.3; O2SAT 95; BMI 18.8
[2022-06-30 22:51] VITALS: BP 141/61; PULSE 60; RESP 17; O2SAT 93
--- NOTE | 2022-06-30 23:04 | XRR_ITS ---
PROCEDURE INFORMATION: Exam: XR Chest Exam date and time: 07/01/2022 12:09 AM Age: 82 years old Clinical indication: Other: AMS TECHNIQUE: Imaging protocol: Radiologic exam of the chest. Views: 1 view. COMPARISON: CR XR chest 1V portable [id number] 08/01/2021 6:04 PM FINDINGS: Lungs: Unremarkable. No consolidation. Pleural spaces: Unremarkable. No pleural effusion. No pneumothorax. Heart/Mediastinum: Unremarkable. No cardiomegaly. Bones/joints: Unremarkable. XR/XR chest 1V portable [id number] IMPRESSION: No acute findings.
[2022-06-30 23:16] LABS: Basophils # 0.1 10^3/uL (0.0-0.1); Basophils % 0.7 %; Eosinophils # 0.6 10^3/uL (0.0-0.8); Eosinophils % 6.6 %; Hematocrit 41.9 % (37.0-47.0); Hemoglobin 13.2 g/dL (11.5-15.3); Lymphocytes # 3.5 10^3/uL (0.8-4.8); Lymphocytes % 40.6 %; Mean Corpuscular HGB Conc 31.5 g/dL (30.0-36.0); Mean Corpuscular Hemoglobin 29.3 pg (28.0-34.0); Mean Corpuscular Volume 92.9 fl (81-99); Mean Platelet Volume 10.4 fL (7.4-10.4); Monocytes # 0.8 10^3/uL (0.2-0.9); Monocytes % 8.7 %; Neutrophils # 3.74 10^3/uL (1.8-7.7); Neutrophils % 43.3 %; Nucleated Red Blood Cells % 0 %; Platelet Count 238 10^3/cmm (130-400); Red Blood Count 4.51 10^6/uL (4.1-5.3); Red Cell Distribution Width 12.7 % (12.1-15.1); White Blood Count 8.6 10^3/uL (4.0-10.0)
[2022-06-30] MEDS: sodium chloride 0.9% 1,000 ML 999 ML IV (23:20)
[2022-06-30 23:31] LABS: Alanine Aminotransferase 18 U/L (0-33); Albumin Level 3.5 g/dL (3.5-5.2); Alkaline Phosphatase 86 U/L (35-105); Anion Gap 11.8 (5-19); Aspartate Amino Transferase 21 U/L (0-32); Blood Urea Nitrogen 41 mg/dL (8-23); C Reactive Protein 29.2 mg/L (0.0-4.9); Calcium 10.3 mg/dL (8.5-10.5); Carbon Dioxide 31 mmol/L (22-29); Chloride 103 mmol/L (98-107); Globulin 3.1 g/dL (1.3-4.6); Glucose 100 mg/dL (65-115); Osmolality Calculated 302 mOsm/kg (285-295); Potassium 4.8 mmol/L (3.5-5.1); Sodium 141 mmol/L (136-145); Total Bilirubin 0.2 mg/dL (0.15-1.2); Total Protein 6.6 g/dL (6.6-8.7)
[2022-06-30 23:51] VITALS: BP 164/66; PULSE 64; RESP 19; O2SAT 94
[2022-07-01 00:30] VITALS: BP 152/59; PULSE 62; O2SAT 91
[2022-07-01 00:34] LABS: Add Urine Microscopic? YES; Bilirubin Urine Neg (Negative); Blood Urine 2+ (Negative); Glucose Urine UA Norm (Normal); Ketones Urine Negative (Negative); Leukocyte Esterase Urine Negative (Negative); Nitrate Urine Negative (Negative); Protein Urine Neg (Negative); Urine Appearance Clear (CLEAR); Urine Color Colorless (Yellow); Urobilinogen Urine Neg (Negative); pH Urine 7 (5-7)
[2022-07-01 00:36] LABS: RBC Urine 0-4 /hpf (0-2)
[2022-07-01 00:37] LABS: Add Urine Culture? No; Mucus Urine TRACE /hpf; Squamous Epithelial Cell Urine 0-4 /hpf (0-5)
[2022-07-01 02:00] VITALS: BP 168/71; PULSE 59; O2SAT 92
--- NOTE | 2022-07-01 02:01 | W.ED.WEAKNES ---
HPI - Weakness General: Chief complaint: Weakness Stated complaint: AMS Time Seen by Provider: 06/30/22 22:52 History of Present Illness: 82-year-old female long-term patient with a history of dementia. She had a brief episode of decreased responsiveness in the long-term where she was not answering questions or following commands. This seems to have resolved on arrival. Family notes she appears more at her baseline now. No fever. No other symptoms. The patient has no complaints of pain. MD Complaint: generalized weakness Onset (ago): unknown Duration: now resolved Location: generalized Migration: none Severity: mild Quality: other Relieving factors: none Exacerbating factors: none Associated symptoms: Reports confusion; Denies chest pain, chills, melena, decreased appetite, dysuria, fever(s), headache(s), nausea, short of breath, syncope or vomiting Review of Systems General: Reports: ROS unobtainable due to medical condition Const: Denies: fever(s) or chills ENMT: Denies: throat pain Card: Denies: chest pain or syncope Resp: Denies: dyspnea GI: Denies: nausea, vomiting or melena : Denies: dysuria Neuro: Reports: confusion; Denies: headache(s) PFSH ED PFSH: Medical History CKD (chronic kidney disease) stage 3, GFR 30-59 ml/min Dementia DNR (do not resuscitate) HTN (hypertension) Leg wound, left Leg wound, right Peripheral vascular disease Surgical History History of left above knee amputation Social History Smoking and tobacco status: never smoked Alcohol intake: never Household members: other Housing: Jail Marital status: / Physical Exam Const: COMMON NORMALS: no acute distress and alert GENERAL APPEARANCE: cooperative and frail appearing HENMT: COMMON NORMALS: normocephalic, atraumatic and Normal external nose present HEAD & SCALP: normocephalic and atraumatic FACE & SINUS: normal facial exam and face symmetric NOSE: Normal external nose present Eye: COMMON NORMALS: Equal, round and reactive pupils present and EOMs intact bilaterally PUPIL: Yes Equal, round and reactive pupils present Neck/C-Spine: COMMON NORMALS: no meningeal signs GENERAL: Yes trachea midline Chest: CHEST: Yes Symmetrical chest wall rise Resp: COMMON NORMALS: normal respiratory effort, No retractions, No use of accessory muscles and clear to auscultation bilaterally AUSCULTATION: clear to auscultation bilaterally Cardio: COMMON NORMALS: regular rate and regular rhythm RATE: regular rate RHYTHM: regular rhythm GI: COMMON NORMALS: Normal to inspection, nondistended, normoactive bowel sounds present Extremity: COMMON NORMALS: no pedal edema Neuro: JACKIE COMA SCALE: document GCS findings [place] coma scale eye opening: Spontaneous [place] coma scale verbal response: Confused [place] coma scale motor response: Obey commands Jackie coma scale total score: 14 SENSORIUM/ORIENTATION: Yes alert MENINGEAL SIGNS: Yes no meningeal signs CRANIAL NERVES: Yes CN normal except as noted SPEECH: abnormal speech GAIT: Yes Unable to assess gait SENSORY EXAM: Yes extremities (intact) Skin: COMMON NORMALS: no rashes or lesions noted GENERAL SKIN EXAM: no rashes or lesions noted Course Vital Signs: Vital signs: Vital Signs Temperature 97.4 F L 06/30/22 22:46 Pulse Rate 59 L 07/01/22 02:00 Respiratory Rate 19 H 06/30/22 23:51 Blood Pressure 168/71 07/01/22 02:00 Pulse Oximetry 92 07/01/22 02:00 Oxygen Delivery Me thod 07/01/22 00:30 MDM - Weakness Medical Decision Making Mental status appears baseline at this point. The patient has a completely nonfocal exam. CBC is normal. BMP shows a BUN of 41 and creatinine 1.1. She is given a liter of fluid for this. Urinalysis is negative. Chest x-ray is negative. No definite cause identified. She is back to baseline essentially according to family. She has no complaints of pain. We will allow her back to the long-term. Lab Data 06/30/22 22:54 06/30/22 22:54 Radiology Impressions Chest X-Ray 06/30/22 23:04 IMPRESSION: No acute findings. Laboratory Results WBC 8.6 10^3/uL (4.0-10.0) 06/30/22 22:54 RBC 4.51 10^6/uL (4.1-5.3) 06/30/22 22:54 Hgb 13.2 g/dL (11.5-15.3) 06/30/22 22:54 Hct 41.9 % (37.0-47.0) 06/30/22 22:54 MCV 92.9 fl (81-99) 06/30/22 22:54 MCH 29.3 pg (28.0-34.0) 06/30/22 22:54 MCHC 31.5 g/dL (30.0-36.0) 06/30/22 22:54 RDW 12.7 % (12.1-15.1) 06/30/22 22:54 Plt Count 238 10^3/cmm (130-400) 06/30/22 22:54 MPV 10.4 fL (7.4-10.4) 06/30/22 22:54 Neut % (Auto) 43.3 % 06/30/22 22:54 Lymph % (Auto) 40.6 % 06/30/22 22:54 [place] % (Auto) 8.7 % 06/30/22 22:54 Eos % (Auto) 6.6 % 06/30/22 22:54 Baso % (Auto) 0.7 % 06/30/22 22:54 Neut # (Auto) 3.74 10^3/uL (1.8-7.7) 06/30/22 22:54 Lymph # (Auto) 3.5 10^3/uL (0.8-4.8) 06/30/22 22:54 [place] # (Auto) 0.8 10^3/uL (0.2-0.9) 06/30/22 22:54 Eos # (Auto) 0.6 10^3/uL (0.0-0.8) 06/30/22 22:54 Baso # (Auto) 0.1 10^3/uL (0.0-0.1) 06/30/22:54 Nucleated RBC % (auto) 0 % 06/30/22: Nucleated RBCs # 0.0 /100WBC 06/30/22 22:54 Sodium 141 mmol/L (136-145) 06/30/22 22:54 Potassium 4.8 mmol/L (3.5-5.1) 06/30/22 22:54 Chloride 103 mmol/L (98-107) 06/30/22 22:54 Carbon Dioxide 31 mmol/L (22-29) H 06/30/22 22:54 Anion Gap 11.8 (5-19) 06/30/22 22:54 BUN 41 mg/dL (8-23) H 06/30/22 22:54 Creatinine 1.1 mg/dL (0.5-0.9) H 06/30/22 22:54 GFR Calculation Not Reportable 06/30/22 22:54 Glucose 100 mg/dL (65-115) 06/30/22 22:54 Calculated Osmolality 302 mOsm/kg (285-295) H 06/30/22 22:54 Lactate 1.0 mmol/L (0.5-2.2) 06/30/22 22:54 Calcium 10.3 mg/dL (8.5-10.5) 06/30/22 22:54 Total Bilirubin 0.2 mg/dL (0.15-1.2) 06/30/22 22:54 AST 21 U/L (0-32) 06/30/22 22:54 ALT 18 U/L (0-33) 06/30/22 22:54 Alkaline Phosphatase 86 U/L (35-105) 06/30/22 22:54 C-Reactive Protein 29.2 mg/L (0.0-4.9) H 06/30/22 22:54 Total Protein 6.6 g/dL (6.6-8.7) 06/30/22 22:54 Albumin 3.5 g/dL (3.5-5.2) 06/30/22 22:54 Globulin 3.1 g/dL (1.3-4.6) 06/30/22 22:54 Urine Color Colorless (Yellow) 07/01/22 00:15 Urine Appearance Clear (CLEAR) 07/01/22 00:15 Urine pH 7 (5-7) 07/01/22 00:15 Ur Specific [place] 1.010 (1.005-1.030) 07/01/22 00:15 Urine Protein Neg (Negative) 07/01/22 00:15 Urine Glucose (UA) Norm (Normal) 07/01/22 00:15 Urine Ketones Negative (Negative) 07/01/22 00:15 Urine Blood 2+ (Negative) H 07/01/22 00:15 Urine Nitrate Negative (Negative) 07/01/22 00:15 Urine Bilirubin Neg (Negative) 07/01/22 00:15 Urine Urobilinogen Neg mg/dL (Negative) 07/01/22 00:15 Ur Leukocyte Esterase Negative (Negative) 07/01/22 00:15 Urine RBC 0-4 /hpf (0-2) H 07/01/22 00:15 Urine WBC None /hpf (0-5) 07/01/22 00:15 Ur Squamous Epith Cells 0-4 /hpf (0-5) H 07/01/22 00:15 Amorphous Sediment Not Reportable 07/01/22 00:15 Urine Bacteria None /hpf (NONE) 07/01/22 00:15 Urine Mucus Trace /hpf 07/01/22 00:15 Discharge Plan Discharge Patient Disposition: Home Clinical Impression: Acute alteration in mental status Condition: Stable Prescriptions: No Action bisacodyl 5 mg tablet,delayed release (DR/EC) 5 mg PO DAILY PRN duloxetine 60 mg capsule,delayed release(DR/EC) 60 mg PO DAILY gabapentin 300 mg capsule 300 mg PO TID morphine concentrate 100 mg/5 mL (20 mg/mL) solution 10 mg PO Q1H acetaminophen [Tylenol] 325 mg Tablet 325 mg PO Q4H PRN (Reason: Pain) acetaminophen 650 mg Suppository 650 mg [place] Q6H PRN (Reason: Pain) atorvastatin 10 mg Tablet 10 mg PO DAILY aspirin 325 mg Tablet 325 mg PO DAILY sertraline [Zoloft] 100 mg Tablet 100 mg PO DAILY olanzapine 2.5 mg Tablet 2.5 mg PO DAILY alprazolam 0.25 mg Tablet 0.25 mg PO DAILY [place] Nasal 0.65 % Aerosol,[place] 1 spray INTRANASAL Q6H PRN (Reason: Nasal Congestion) Saccharomyces boulardii 250 mg Capsule 250 mg PO DAILY fentanyl 12 mcg/hr Patch 72 Hour 1 patch TRANSDERMAL Q72H diclofenac sodium 1 % Gel 2 g TOPICAL TID PRN (Reason: Pain) Rx Instructions: apply to single elbow, wrist or hand; for hand includes palm/fingers/back of hand Eucerin Cream 1 applic TOPICAL DAILY PRN (Reason: Dry Skin) ferrous gluconate 324 mg (37.5 mg iron) Tablet 324 mg PO BIDWM Qty: 60 0RF amlodipine 5 mg Tablet 10 mg PO DAILY Qty: 0 0RF furosemide [Lasix] 20 mg Tablet 20 mg PO DAILY PRN (Reason: swelling) Qty: 0 0RF Discharge Orders: Discharge ED (Routine); Ordered 07/01/22 Ordered By: Zaki Medina Referrals: Alexis Figueroa MD [Primary Care Provider] - 1-3 days Patient Instructions: Altered Mental Status (ED) Activity Restrictions/Additional Instructions: Return for worsening mental status, fever greater than 100, development of new or concerning symptoms. Coding Level of Care Code ED Assistant [employer] Public Defender for [facility]ik[place] Fwd Exam Comprehensive
[2022-07-01 02:10] VITALS: BP 168/71; PULSE 63; O2SAT 91
== END 2022-07-01 02:38 | disposition home or self-care (01) ==
PROVIDERS: Emergency Provider Emergency Medicine; PCP Internal Medicine
DX: R41.82 Altered mental status, unspecified (principal); Z79.82 Long term (current) use of aspirin; I12.9 Hypertensive chronic kidney disease with stage 1 through stage 4 chronic kidney disease, or unspecified chronic kidney disease; N18.30 Chronic kidney disease, stage 3 unspecified; F03.90 Unspecified dementia, unspecified severity, without behavioral disturbance, psychotic disturbance, mood disturbance, and anxiety; Z89.612 Acquired absence of left leg above knee
CPT/HCPCS: 71045; 80053; 81001; 83605; 85025; 86140; 96360; 99284; J7030